=== PATIENT | male | born 1970 | race Caucasian/White ===

== ENCOUNTER → 2017-12-14 | Outpatient (CLI) | payer OTHER ==
--- NOTE | 2017-12-14 13:40 | DIAGNOSTIC IMAGING REPORT ---
RIGHT HAND 3 VIEWS CLINICAL HISTORY: Fall. Right hand injury. FINDINGS: 3 views of the right hand are obtained. No prior studies are available for comparison at the time of dictation. The skeletal structures are well mineralized. There is a horizontally oriented fracture through the base of the fifth metacarpal. This is distracted by at least 4 mm, with mild apex dorsal angulation. Overlying soft tissue edema is noted. No additional fracture is seen. The joint spaces of the hand are preserved. IMPRESSION: There is a distracted fracture through the base of the fifth metacarpal as above. Electronically signed by: Alexis Ponce M.D. 12/14/2017 1:39 PM Dictated Date/Time: 12/14/2017 1:37 PM
== END | disposition home or self-care (01) ==
LOC: C.RAD1850 13:27
PROVIDERS: ATTEND Emergency Medicine
DX: S62.316A Displaced fracture of base of fifth metacarpal bone, right hand, initial encounter for closed fracture (principal); W19.XXXA Unspecified fall, initial encounter

== ENCOUNTER → 2017-12-19 | Outpatient (CLI) | payer OTHER | END | disposition home or self-care (01) | LOC: C.RDSM 09:41 | PROVIDERS: ATTEND Family Medicine Sports Medicine | DX: S62.91XA Unspecified fracture of right hand, initial encounter for closed fracture (principal); X58.XXXA Exposure to other specified factors, initial encounter; Z88.0 Allergy status to penicillin ==

== ENCOUNTER → 2017-12-20 | Outpatient (CLI) | payer OTHER | END | disposition home or self-care (01) | LOC: C.RDSM 10:40 | PROVIDERS: ATTEND Family Medicine Sports Medicine | DX: M25.522 Pain in left elbow (principal); M25.532 Pain in left wrist ==

== ENCOUNTER → 2018-01-02 | Outpatient (CLI) | payer OTHER | END | disposition home or self-care (01) | LOC: C.RDSM 07:21 | PROVIDERS: ATTEND Family Medicine Sports Medicine | DX: S52.122A Displaced fracture of head of left radius, initial encounter for closed fracture (principal); S62.91XA Unspecified fracture of right hand, initial encounter for closed fracture; X58.XXXA Exposure to other specified factors, initial encounter ==

== ENCOUNTER 2020-10-15 16:42 | Inpatient (IN) ==
[2020-10-15] MEDS ORDERED: SODIUM CHLORIDE 0.9% 1000ML 1,000 ML IV ONE ×2 (18:30→19:20)
--- NOTE | 2020-10-15 18:31 | Emergency Department Note ---
Impression & Plan Osteomyelitis, Diabetic foot ulcer, Acute hyperglycemia ED Provider Note NAME: ASHWINI MONTERROSO AGE: 50 SEX: M : 1970 ARRIVES VIA: Walk-In INFORMANT: Patient, ED PROVIDER(S): Deacon Rankin DO CHIEF COMPLAINT: Ulcer HPI: The patient is a 50-year-old male who presented to the emergency department for an evaluation of right foot ulceration. The patient started having a hemorrhagic blister on his right great toe approximately 2 months ago. He states he has been managing it with local wound care but started to notice it wa s starting to drain and the blister ruptured. He went to see his family doctor today and was sent to the emergency department because of a large ulcer on the underside of the right toe. Dressing was in place. The patient denies having any fever or chills. He denies having any nausea or vomiting. He states his blood sugars have been under pretty good control recently. He has never had an ulcer before. He denies having any injury but he states he did have an x-ray with his family doctor that showed there was a questionable fracture in that area. ROS: See above HPI for pertinent positives & negatives. A total of 10 systems reviewed and were otherwise negative. PAST MEDICAL HISTORY: See Below PAST SURGICAL HISTORY: See Below FAMILY HISTORY: See Below SOCIAL HISTORY: See Below HOME MEDICATIONS: See Below ALLERGIES: See Below VITALS: See Below PHYSICAL EXAMINATION: GENERAL: Patient is awake alert in no acute distress patient is resting comfortably and showing no signs of anxiety EYES: The conjunctivae are clear. The pupils are round and reactive. EARS, NOSE, MOUTH AND THROAT: The nose is without any evidence of any deformity. Mucous membranes are moist. Tongue is midline. NECK: The neck is nontender and supple. RESPIRATORY: Normal respiratory effort is noted there is no evidence of wheezing rhonchi or rales CARDIOVASCULAR: Regular rate and rhythm noted there no murmurs rubs or gallops normal S1 normal S2. GASTROINTESTINAL: The abdomen is soft. Abdomen is nontender. MUSCULOSKELETAL/EXTREMITIES: There is no evidence of gross deformity full range of motion is noted in the hips and shoulders. SKIN: There is a large ulceration on the underside of the right great toe does appear to communicate with the musculoskeletal structures including the flexor tendons. There is also ulceration on the medial aspect of the right great toe. NEUROLOGIC: Patient is awake alert and oriented x3. MEDICAL DECISION MAKING: The patient is a 50-year-old male who presented to the emergency department for an evaluation of right foot pain. The patient was noted to have a significant ulcer by his primary care physician. He was sent to the emergency department for further evaluation of this ulcer. The patient was reevaluated multiple times. He was treated with IV antibiotics in the emergency department. Cu ltures were obtained. I discussed the patient's laboratory and radiographic studies with him. [facility] to evaluate the patient in the emergency department for further management and disposition. Triage Nursing notes reviewed. Prior medical records reviewed Vital Signs: reviewed and remarkable for initial hypotension then tachycardia and elevated blood pressure. Differential diagnosis: Cellulitis, abscess, MRSA infection, DVT, necrotizing fasciitis, dermatitis, drug eruption, allergic reaction, as well as other pathologies. ER treatment provided: See below Diagnostics interpreted by me: ECG: none Cardiac Monitoring: An order was placed for continuous cardiac monitoring. The monitor shows a rate of 105 bpm with sinus tachycardia rhythm. Laboratory studies: As stated above and show below. Imaging studies: See below Consultation(s): I discussed this case with Dr. Scott who [facility] He is agreed to evaluate the patient in the emergency department for further management and disposition. Past Med/Surg History Medical History High cholesterol Type 2 diabetes mellitus Social History Smoking Status: Never smoker Feels Safe at Home: Yes Allergies Allergies Allergy/AdvReac Type Severity Reaction Status Date / Time Penicillins Allergy Intermediate Hives Verified 10/15/20 20:04 Home Meds Home Medications Medication Instructions Recorded Confirmed atorvastatin 20 mg PO DAILY 10/15/20 10/15/20 glimepiride 2 mg PO DAILY 10/15/20 10/15/20 metformin 500 mg PO BID 10/15/20 10/15/20 Results & Data (ED) Vital Signs Vital Signs - 24 hr 10/15/20 16:51 10/15/20 19:05 10/15/20 19:25 Temperature 36.9 C Temperature Source Oral Pulse Rate 102 H 103 H 100 H Pulse Rate from SpO2 Sensor 103 H 100 H Pulse Rhythm Regular Pulse Strength Normal Respiratory Rate 20 19 12 Respiratory Effort / Characteristics Non-Labored Spontaneous Respiratory Depth Normal Respiratory Pattern Regular Blood Pressure 97/66 L 160/94 H Blood Pressure Mean 76 116 Blood Pressure Position Sitting Pulse Oximetry 99 97 96 Oxygen Delivery Method Room Air Sepsis Recent Fever Within 48 Hours No Sepsis New/Unexplained Change in Mental Status No Sepsis Action Taken by Nursing No Action Required 10/15/20 19:30 10/15/20 20:00 10/15/20 20:30 Temperature Temperature Source Pulse Rate 103 H 102 H 99 H Pulse Rate from SpO2 Sensor 101 H 103 H 99 H Pulse Rhythm Pulse Strength Respiratory Rate 21 18 22 Respiratory Effort / Characteristics Respiratory Depth Respiratory Pattern Blood Pressure 149/85 H 135/83 153/87 H Blood Pressure Mean 106 100 109 Blood Pressure Position Pulse Oximetry 95 95 96 Oxygen Delivery Method Sepsis Recent Fever Within 48 Hours Sepsis New/Unexplained Change in Mental Status Sepsis Action Taken by [facility] Medications Current Medication List: was personally reviewed by me Laboratory Data Attestation: I reviewed the patient's lab results. Result diagrams: 10/15/20 18:44 10/15/20 18:44 Lab Results 10/15/20 10/15/20 10/15/20 Range/Units 18:44 18:44 18:44 WBC 14.52 H (4.8-10.8) K/uL RBC 4.84 (4.7-6.1) M/uL Hgb 14.8 (14.0-18.0) g/dL Hct 42.1 (42-52) % MCV 87.0 (80-100) fL MCH 30.6 (25-34) pg MCHC 35.2 (32-36) g/dL RDW Std Deviation 39.4 (36.4-46.3) fL RDW Coeff of Gracie 12.3 (11.5-14.5) % Plt Count 255 (130-400) K/uL MPV 10.5 H (7.4-10.4) fL Immature Gran % (Auto) 1.5 % Neut % (Auto) 79.8 % Lymph % (Auto) 9.1 % [place] % (Auto) 8.5 % Eos % (Auto) 0.8 % Baso % (Auto) 0.3 % Neut # (Auto) 11.60 H (1.4-6.5) K/uL Lymph # (Auto) 1.32 (1.2-3.4) K/uL [place] # (Auto) 1.23 H (0.11-0.59) K/uL Eos # (Auto) 0.11 (0-0.5) K/uL Baso # (Auto) 0.04 (0-0.2) K/uL Immature Gran # (Auto) 0.22 H (0.00-0.02) K/uL ESR 99 H (0-20) mm/hr Sodium 127 L (136-145) mmol/L Potassium 4.0 (3.5-5.1) mmol/L Chloride 93 L (98-107) mmol/L Carbon Dioxide 20 L (21-32) mmol/L Anion Gap 14.0 H (3-11) BUN 22 H (7-18) mg/dl Creatinine 1.42 H (0.6-1.4) mg/dl Est Cr Clr Drug Dosing 66.5 ml/min Est GFR ( Amer) 65.4 ml/min Est GFR (Non-Af Amer) 56.4 ml/min BUN/Creatinine Ratio 15.8 (10-20) Glucose 341 H* (70-99) mg/dl Calcium 9.1 (8.5-10.1) mg/dl Total Bilirubin 1.8 H (0.2-1) mg/dl AST 12 L (15-37) U/L ALT 29 (12-78) U/L Alkaline Phosphatase 204 H (45-117) U/L C-Reactive Protein 15.40 H (0-0.29) mg/dl Total Protein 8.1 (6.4-8.2) gm/dl Albumin 2.7 L (3.4-5.0) gm/dl Globulin 5.4 H (2.5-4.0) gm/dl Albumin/Globulin Ratio 0.5 L (0.9-2) Beta-Hydroxybutyric Acd 22.42 H (0.2-2.81) mg/dl Procalcitonin (0-0.5) ng/ml COVID-19 Eval Order SARS-CoV-2 (PCR) (Negative) 10/15/20 10/15/20 10/15/20 Range/Units 18:44 19:29 19:29 WBC (4.8-10.8) K/uL RBC (4.7-6.1) M/uL Hgb (14.0-18.0) g/dL Hct (42-52) % MCV (80-100) fL MCH (25-34) pg MCHC (32-36) g/dL RDW Std Deviation (36.4-46.3) fL RDW Coeff of Gracie (11.5-14.5) % Plt Count (130-400) K/uL MPV (7.4-10.4) fL Immature Gran % (Auto) % Neut % (Auto) % Lymph % (Auto) % [place] % (Auto) % Eos % (Auto) % Baso % (Auto) % Neut # (Auto) (1.4-6.5) K/uL Lymph # (Auto) (1.2-3.4) K/uL [place] # (Auto) (0.11-0.59) K/uL Eos # (Auto) (0-0.5) K/uL Baso # (Auto) (0-0.2) K/uL Immature Gran # (Auto) (0.00-0.02) K/uL ESR (0-20) mm/hr Sodium (136-145) mmol/L Potassium (3.5-5.1) mmol/L Chloride (98-107) mmol/L Carbon Dioxide (21-32) mmol/L Anion Gap (3-11) BUN (7-18) mg/dl Creatinine (0.6-1.4) mg/dl Est Cr Clr Drug Dosing ml/min Est GFR ( Amer) ml/min Est GFR (Non-Af Amer) ml/min BUN/Creatinine Ratio (10-20) Glucose (70-99) mg/dl Calcium (8.5-10.1) mg/dl Total Bilirubin (0.2-1) mg/dl AST (15-37) U/L ALT (12-78) U/L Alkaline Phosphatase (45-117) U/L C-Reactive Protein (0-0.29) mg/dl Total Protein (6.4-8.2) gm/dl Albumin (3.4-5.0) gm/dl Globulin (2.5-4.0) gm/dl Albumin/Globulin Ratio (0.9-2) Beta-Hydroxybutyric Acd (0.2-2.81) mg/dl Procalcitonin 0.58 H (0-0.5) ng/ml COVID-19 Eval Order Covid19 [address] [facility] SARS-CoV-2 (PCR) NEGATIVE (Negative) Administered Medications Discontinued Medications Sodium Chloride (Nss 1000ml) 1,000 mls @ 999 mls/hr IV .Q1H1M ONE Stop: 10/15/20 19:30 Last Infusion: 10/15/20 20:27 Dose: 0 mls/hr Documented by: [id number] Admin: 10/15/20 19:04 Dose: 999 mls/hr Documented by: [id number] Vancomycin HCl 2,000 mg/ (Sodium Chloride) 540 mls @ 200 mls/hr IV NOW ONE Stop: 10/15/20 21:16 Last Admin: 10/15/20 19:06 Dose: 200 mls/hr Documented by: [id number] Cefepime HCl (Maxipime) 2,000 mg in 20 mls @ 5 mls/min IV NOW STA; Protocol Stop: 10/15/20 18:38 Last Admin: 10/15/20 19:02 Dose: 5 mls/min Documented by: [id number] Sodium Chloride (Nss 1000ml) 1,000 mls @ 999 mls/hr IV .Q1H1M ONE Stop: 10/15/20 20:20 Last Admin: 10/15/20 20:26 Dose: 999 mls/hr Documented by: [id number] Insulin Human Regular (Novolin-R Insulin Per Unit Charge) 6 units IV NOW STA Stop: 10/15/20 19:21 Last Admin: 10/15/20 19:26 Dose: 6 units Documented by: [id number] Cosigned by: [id number] Imaging Data Radiologist's Impression: Foot X-Ray 10/15/20 18:30 XR foot RT min 3V routine HISTORY: 50 years-old Male great toe ulcer soft tissue ulcer of the right great toe COMPARISON: None TECHNIQUE: 3 views of the right foot FINDINGS: Moderate soft tissue swelling of the foot. 1.8 cm soft tissue ulcer involving the plantar aspect of the great toe. Osseous erosions of the first distal phalanx are noted with associated fragmentation and pathologic fracturing. Equivocal osseous erosions involve the lateral aspect of the first proximal phalangeal head. Moderate multifocal osteoarthritis with arterial calcifications. IMPRESSION: Soft tissue ulcer of the great toe with osteomyelitis and pathologic fracturing of the first distal phalanx. Subtle osseous erosion involving the lateral first proximal phalangeal head is suggestive of an additional site of osteomyelitis. ACT 112: Negative or not required by law. The above report was generated using voice recognition software. It may contain grammatical, syntax or spelling errors. Electronically signed by: Ino Ro M.D. 10/15/2020 7:05 PM Discharge Plan Visit Data Chief Complaint: Toe Injury/Pain Stated Complaint: R BIG TOE FRACTURE- DOC REF ED Provider: Deacon Rankin Discharge Problem: Osteomyelitis, Diabetic foot ulcer, Acute hyperglycemia Patient Disposition: Being Evaluated by Hospitalist Condition: Good Discharge Problem: Osteomyelitis Qualifiers: Osteomyelitis type: other acute Osteomyelitis location: foot Laterality: unspecified laterality Qualified Code(s): M86.179 - Other acute osteomyelitis, unspecified ankle and foot Diabetic foot ulcer Qualifiers: Diabetic foot ulcer location: toe Diabetes mellitus type: other specified (including ANEESH) Laterality: unspecified laterality Non-pressure ulcer stage: unspecified non-pressure ulcer stage Qualified Code(s): E13.621 - Other specified diabetes mellitus with foot ulcer
[2020-10-15] MEDS ORDERED: VANCOMYCIN HCL 2,000 MG in SODIUM CHLORIDE 0.9% 500 ML IV ONE (18:35)
[2020-10-15] MEDS ORDERED: VANCOMYCIN CONSULT ACTIVE PRN (18:35)
[2020-10-15] MEDS ORDERED: CEFEPIME 2,000 MG/20 ML VIAL IV STA (18:35)
[2020-10-15 18:58] LABS: Basophils # (auto) 0.04 K/uL (0-0.2); Basophils % (auto) 0.3 %; Eosinophils # (auto) 0.11 K/uL (0-0.5); Eosinophils % (auto) 0.8 %; Hematocrit (blood only) 42.1 % (42-52); Hemoglobin 14.8 g/dL (14.0-18.0); Immature Granulocytes # (auto) 0.22 K/uL (0.00-0.02); Immature Granulocytes % (auto) 1.5 %; Lymphocytes # (auto) 1.32 K/uL (1.2-3.4); Lymphocytes % (auto) 9.1 %; Mean Corpuscular Hemoglobin 30.6 pg (25-34); Mean Corpuscular Hgb Conc 35.2 g/dL (32-36); Mean Platelet Volume 10.5 fL (7.4-10.4); Monocytes # (auto) 1.23 K/uL (0.11-0.59); Monocytes % (auto) 8.5 %; Neutrophils % (auto) 79.8 %; Platelet Count 255 K/uL (130-400); RDW Coefficient of Variation 12.3 % (11.5-14.5); RDW Standard Deviation 39.4 fL (36.4-46.3); Red Blood Count 4.84 M/uL (4.7-6.1); White Blood Count 14.52 K/uL (4.8-10.8)
--- NOTE | 2020-10-15 19:06 | XRay Report ---
XR foot RT min 3V routine HISTORY: 50 years-old Male great toe ulcer soft tissue ulcer of the right great toe COMPARISON: None TECHNIQUE: 3 views of the right foot FINDINGS: Moderate soft tissue swelling of the foot. 1.8 cm soft tissue ulcer involving the plantar aspect of t he great toe. Osseous erosions of the first distal phalanx are noted with associated fragmentation an d pathologic fracturing. Equivocal osseous erosions involve the lateral aspect of the first proximal phalangeal head. Moderate multifocal osteoarthritis with arterial calcifications. IMPRESSION: Soft tissue ulcer of the great toe with osteomyelitis and pathologic fracturing of the fi rst distal phalanx. Subtle osseous erosion involving the lateral first proximal phalangeal head is dangelo ggestive of an additional site of osteomyelitis. ACT 112: Negative or not required by law. The above report was generated using voice recognition software. It may contain grammatical, syntax o r spelling errors. Electronically signed by: Ino Ro M.D. 10/15/2020 7:05 PM
[2020-10-15 19:16] LABS: Albumin Globulin Ratio 0.5 (0.9-2); Albumin Level 2.7 gm/dl (3.4-5.0); BUN Creatinine Ratio 15.8 (10-20); Bilirubin,Total 1.8 mg/dl (0.2-1); C Reactive Protein 15.4 mg/dl (0-0.29); Calcium 9.1 mg/dl (8.5-10.1); Creatinine Clr Calc Pharmacy 66.5 ml/min; Est GFR (African American) 65.4 ml/min; Est GFR (Non-African American) 56.4 ml/min; Globulin 5.4 gm/dl (2.5-4.0); Total Protein 8.1 gm/dl (6.4-8.2)
[2020-10-15] MEDS ORDERED: NovoLIN-R INSULIN PER UNIT CHARGE IV STA (19:20)
[2020-10-15 19:39] LABS: Beta-Hydroxybutyrate 22.42 mg/dl (0.2-2.81)
[2020-10-15] MEDS ORDERED: POLYETHYLENE (MIRALAX) 17 GM PACK PO PRN (21:57)
[2020-10-15] MEDS ORDERED: ACETAMINOPHEN 325 MG TAB PO PRN (21:57)
[2020-10-15] MEDS ORDERED: MEROPENEM CONSULT ACITVE PRN (21:57)
[2020-10-15] MEDS ORDERED: INSULIN HUMAN REGULAR PER UNIT 6 UNITS in SYRINGE 5.94 ML IV STA (22:25)
[2020-10-15] MEDS ORDERED: CARBOHYDRATES FOR HYPOGLYCEMIA PO PRN (22:30)
[2020-10-15] MEDS ORDERED: INSULIN GLARGINE SOLOSTAR 100 UNITS/ML 3 ML PEN SC SCH (22:30)
[2020-10-15] MEDS ORDERED: GLUCOSE 40% GEL 15 GM TUBE PO PRN (22:30)
[2020-10-15] MEDS ORDERED: INSULIN ASPART 100 UNITS/ML 3 ML PEN SC SCH (22:30)
[2020-10-15] MEDS ORDERED: DEXTROSE 50% 50 ML SYRINGE IV PRN (22:30)
[2020-10-15] MEDS ORDERED: MEROPENEM 500 MG in SYRINGE 0 ML IV SCH (22:30)
[2020-10-15] MEDS ORDERED: GLUCAGON FOR INJ 1 MG VIAL IM PRN (22:30)
[2020-10-15] MEDS ORDERED: GLUCOSE 10 TABS/TUBE PO PRN (22:30)
[2020-10-15] MEDS: SODIUM CHLORIDE 0.9% 1000ML 1,000 ML IV SCH (22:36)
--- NOTE | 2020-10-15 22:42 | Pharmacy Report ---
Pharmacy Abx Initial Consult - Date of Service October 15, 2020 - Pharmacy Dosing Scope Date of Consult: 10/15/20 Consultation requested by: Dr. Scott Pharmacy is consulted to initiate Vancomycin and Meropenem IV dosing therapy, order appropriate labs and adjust drug dose/frequency. - Subjective The patient is a 50 year old M admitted on 10/15/20 20:31. - Objective Height: 5 ft 7 in Weight: 93.9 kg Vital Signs (Past 12hrs): Vital Signs Temp Pulse Pulse Resp BP BP Pulse Ox 10/15/20 21:30 37.5 C 101 H 16 152/82 H 99 10/15/20 21:01 105 H 20 149/93 H 98 10/15/20 21:00 101 H 24 98 10/15/20 20:30 99 H 22 153/87 H 96 10/15/20 20:00 102 H 18 135/83 95 10/15/20 19:30 103 H 21 149/85 H 95 10/15/20 19:25 100 H 12 96 10/15/20 19:05 103 H 19 160/94 H 97 10/15/20 16:51 36.9 C 102 H 20 97/66 L 99 Lab Results (24hrs): Laboratory Tests (24 Hours) 10/15/20 10/15/20 10/15/20 18:44 18:44 18:44 WBC Neut # (Auto) ESR 99 H Creatinine 1.42 H Est Cr Clr Drug Dosing 66.5 C-Reactive Protein 15.40 H Procalcitonin 0.58 H 10/15/20 18:44 WBC 14.52 H Neut # (Auto) 11.60 H ESR Creatinine Est Cr Clr Drug Dosing C-Reactive Protein Procalcitonin Micro Results: 10/15/20 18:44 Gram Stain - Pending Foot,Right Wound Culture - Pending - Risk Factors for Resistance * None - Assessment & Plan Assessment 50 year old M admitted secondary to right foot infection * PMHx significant for T2DM * Afebrile. Leukocytosis of 14,500. SCr at 1.42 (unsure of baseline). ESR/CRP both elevated. Procalcitonin was 0.58. * R foot cultures are pending. R foot XR shows evidence of osteomyelitis. * Received Vancomycin and Cefepime in ED but Cefepime switched to Meropenem upon transfer to medical floor. Plan Vancomycin and Cefepime for EMPIRIC (48 hour stop) treatment of osteomyelitis Vancomycin IV * Loading dose: 2000 mg (21 mg/kg) * Maintenance dose: 1250 mg IV (13 mg/kg) every 12 hours * Goal trough level: 15 to 20 mcg/mL * No trough level will be ordered unless Vancomycin therapy is to extend beyond 48 hours Meropenem * 500 mg IV every 6 hours Pharmacy will continue to follow and will adjust dose/frequency as necessary. Thank you.
[2020-10-15] MEDS: MEROPENEM 500 MG in SYRINGE 0 ML IV SCH (23:05)
--- NOTE | 2020-10-15 23:32 | History and Physical Report ---
DATE OF ADMISSION: 10/15/2020 CHIEF COMPLAINT: Right great toe infection. HISTORY OF PRESENT ILLNESS: This is a 50-year-old male with past medical history significant for diabetes, hyperlipidemia, obesity, has been diabetic for 4 years. Comes because of right great toe infection. The patient says in August he noticed an hemorrhagic blister in his right great toe, it burst by itself. He did not care much about it, but later in the last 24-48 hours, it has got swollen and some discomfort and went to PCP and advised to come here and x-ray is showing osteomyelitis. Great toe is swollen, erythematous, and ulcer is seen in the dorsal aspect. The patient denies any pain except pressure. He says he is able to ambulate okay on the leg. Yesterday he had some fever, but today he has no fever. Denies any other complaints. Currently resting comfortably and hemodynamically stable. Denies any headache, no blurred vision, no earache, no runny nose, no sore throat, no cough. Appetite is okay. No chest pain, no shortness of breath. No nausea, no abdominal pain. Normal bowel and bladder movements. ALLERGIES: PENICILLINS. PAST MEDICAL HISTORY: As mentioned above. PAST SURGICAL HISTORY: Colonoscopy, dental surgery. MEDICATIONS: The patient is on atorvastatin 20 mg p.o. daily, glimepiride 2 mg p.o. daily, metformin 500 mg p.o. b.i.d. FAMILY HISTORY: Significant for father has high triglycerides. SOCIAL HISTORY: . No smoking. Alcohol rare. No drug use. REVIEW OF SYSTEMS: As per HPI. Rest of the review of systems negative. PHYSICAL EXAMINATION: GENERAL: The patient is obese, not in acute distress. VITAL SIGNS: Temperature 36.9, pulse 102, respiratory rate 20, blood pressure 197/66, oxygen 99% on room air. HEENT: Pupils equal, round, reactive to light. Oral mucosa moist. NECK: No JVD. No neck masses. CARDIOVASCULAR: S1, S2 heard, regular rate and rhythm, no murmur, no gallop. RESPIRATORY SYSTEM: Normal AP diameter. No accessory muscle use. No wheezing, no crackles. ABDOMEN: Soft, bowel sounds present, nontender. No distention. CENTRAL NERVOUS SYSTEM: Cranial nerves II-XII grossly intact, nonfocal. EXTREMITIES: Right great toe is swollen, erythematous and ulcer seen on the dorsal aspect. LABORATORY DATA: WBC 14.5, hemoglobin 14.8, hematocrit 42.1, platelets 255. ESR 99. Sodium 127, potassium 4, chloride 93, bicarbonate 20, anion gap 14, BUN 22, creatinine 1.4, serum glucose 341, calcium 9.1, total bilirubin 1.8, AST 12, ALT 29, alkaline phosphatase 204. C-reactive protein 15.4. Procalcitonin 0.5. SARS-CoV-2 PCR negative. IMAGING DATA: Foot x-ray, soft tissue ulcer of the great toe with osteomyelitis and pathological fracture of the first distal phalanx, subtle osseous erosion on the lateral first proximal phalangeal head, is suggestive of additional site of osteomyelitis. ASSESSMENT AND PLAN: This is a 50-year-old male with a history of diabetes, who presents with right great toe osteomyelitis. 1. Right great toe osteomyelitis and diabetic foot ulcer: Empirically started on vancomycin and meropenem as the patient is allergic to penicillins. Wound care and ortho consult. Gentle fluids and monitor in the medical floor. 2. Diabetes: Hold his glimepiride and metformin. Currently sugars are running high. Received a dose of 6 units of insulin in the ER. We will follow his blood sugars. Placed him on Lantus 5 units b.i.d., insulin sliding scale. Follow the blood sugars. follow hba1c levels. n.p.o. after midnight for any procedures in the a.m. 3. hyperlipidemia: Continue statin. 4. Obesity: Needs counseling. 5. Elevated bilirubin: Follow repeat labs in the a.m. 6. Acute kidney injury: Presently creatinine of 1.4. Baseline creatinine 0.9 in 2017. Getting fluids. Avoid nephrotoxic agents. We will follow the repeat labs in the a.m. 7. Deep venous thrombosis prophylaxis: Sequential compression devices for now for any procedures. Expect to discharge home and follow with family doctor. Level 1 full code. Social service to help with discharge planning. MTDD
[2020-10-16] MEDS ORDERED: Nursing to Pharmacy Communication SCH ×2 (00:30→10:45)
[2020-10-16] MEDS: MEROPENEM 500 MG in SYRINGE 0 ML IV SCH ×3 (05:56→17:54)
[2020-10-16] MEDS ORDERED: INSULIN ASPART 100 UNITS/ML 3 ML PEN SC SCH (06:00)
[2020-10-16 06:38] LABS: Basophils # (auto) 0.03 K/uL (0-0.2); Basophils % (auto) 0.2 %; Eosinophils # (auto) 0.23 K/uL (0-0.5); Eosinophils % (auto) 1.8 %; Hematocrit (blood only) 36.9 % (42-52); Hemoglobin 12.7 g/dL (14.0-18.0); Immature Granulocytes # (auto) 0.18 K/uL (0.00-0.02); Immature Granulocytes % (auto) 1.4 %; Lymphocytes # (auto) 1.83 K/uL (1.2-3.4); Lymphocytes % (auto) 14.5 %; Mean Corpuscular Hemoglobin 30.5 pg (25-34); Mean Corpuscular Hgb Conc 34.4 g/dL (32-36); Mean Corpuscular Volume 88.5 fL (80-100); Mean Platelet Volume 10.3 fL (7.4-10.4); Monocytes # (auto) 1.03 K/uL (0.11-0.59); Monocytes % (auto) 8.1 %; Neutrophils # (auto) 9.36 K/uL (1.4-6.5); Platelet Count 278 K/uL (130-400); RDW Coefficient of Variation 12.4 % (11.5-14.5); RDW Standard Deviation 39.7 fL (36.4-46.3); Red Blood Count 4.17 M/uL (4.7-6.1); White Blood Count 12.66 K/uL (4.8-10.8)
[2020-10-16] MEDS ORDERED: VANCOMYCIN HCL 1,250 MG in SODIUM CHLORIDE 0.9% 250 ML IV SCH (07:00)
[2020-10-16 07:17] LABS: Estimated Average Glucose 292 mg/dl; Hemoglobin A1C 11.8 % (4.5-5.6)
[2020-10-16 07:26] LABS: BUN Creatinine Ratio 18.7 (10-20); Calcium 7.7 mg/dl (8.5-10.1); Creatinine Clr Calc Pharmacy 109.7 ml/min; Est GFR (African American) 115.6 ml/min; Est GFR (Non-African American) 99.7 ml/min; Magnesium 1.8 mg/dl (1.8-2.4); Potassium 3.8 mmol/L (3.5-5.1)
--- NOTE | 2020-10-16 07:43 | Hospitalist Progress Note ---
Date of Service October 16, 2020 Assessment & Plan (1) Osteomyelitis: (2) Diabetic foot ulcer: (3) Diabetes mellitus: This is a 50-year-old male with a history of diabetes, who presents with right great toe osteomyelitis. 1. Right great toe osteomyelitis and diabetic foot ulcer: Empirically started on vancomycin and meropenem as the patient is allergic to penicillins. Wound care and ortho consult. Gentle fluids and monitor in the medical floor. Orthopedics evaluated patient, MRI of right foot ordered. 2. Diabetes mellitus type II, uncontrolled: Continue globin A1c 11.8% Hold his glimepiride and metformin. Blood sugars elevated on admission -Received a dose of 6 units of insulin in the ER. We will follow his blood sugars. Placed him on Lantus 5 units b.i.d., insulin sliding scale. Glycemic pharmacy also consulted. 3. hyperlipidemia: Continue statin. 4. Obesity: Needs counseling. 5. Elevated bilirubin: Follow repeat labs in the a.m. 6. Acute kidney injury: Presently creatinine of 1.4. Baseline creatinine 0.9 in 2017. Getting fluids. Avoid nephrotoxic agents. We will follow the repeat labs in the a.m. DVT prophylaxis: Sequential compression devices for now for any procedures. Expect to discharge home and follow with family doctor. Social service to help with discharge planning. Admission and Anticipated Discharge Date Admission Date: October 15, 2020 Subjective Patient seen in follow-up of osteomyelitis, hyperglycemia, uncontrolled diabetes mellitus Currently is lying in bed, no acute distress denies any pain Also denies any fever chills chest pain shortness of breath Seen by orthopedics earlier, MRI of foot ordered Review of Systems Review of Systems: All systems reviewed & are unremarkable except as noted in HPI & below Constitutional: no fever and no chills Respiratory: no cough and no dyspnea Cardiovascular: no chest pain and no palpitations Gastrointestinal: no abdominal pain, no nausea and no vomiting Physical Exam Physical Exam: GENERAL: The patient is obese male, not in acute distress. HEENT: NC/AT, Pupils equal, round, reactive to light. Oral mucosa moist. NECK: No JVD. No neck masses. CARDIOVASCULAR: S1, S2 heard, regular rate and rhythm, no murmur, no gallop. RESPIRATORY : Normal AP diameter. No accessory muscle use. No wheezing, no crackles. ABDOMEN: Soft, bowel sounds present, nontender. No distention. NEURO: Alert and oriented x3, no facial asymmetry, speech fluent,moves extremities EXTREMITIES: Right great toe is swollen, erythematous and ulcer seen on the dorsal aspect. Now in dressings. Results & Data Results & Data ([facility]) Vital Signs (Past 12 Hours) Vital Signs Temp Pulse Pulse Resp BP BP Pulse Ox 10/15/20 21:30 37.5 C 101 H 16 152/82 H 99 10/15/20 21:01 105 H 20 149/93 H 98 10/15/20 21:00 101 H 24 98 10/15/20 20:30 99 H 22 153/87 H 96 10/15/20 20:00 102 H 18 135/83 95 Laboratory Results 10/16/20 10/16/20 10/16/20 Range/Units 06:15 06:15 06:15 WBC 12.66 H (4.8-10.8) K/uL RBC 4.17 L (4.7-6.1) M/uL Hgb 12.7 L (14.0-18.0) g/dL Hct 36.9 L (42-52) % MCV 88.5 (80-100) fL MCH 30.5 (25-34) pg MCHC 34.4 (32-36) g/dL RDW Std Deviation 39.7 (36.4-46.3) fL RDW Coeff of Gracie 12.4 (11.5-14.5) % Plt Count 278 (130-400) K/uL MPV 10.3 (7.4-10.4) fL Immature Gran % (Auto) 1.4 % Neut % (Auto) 74.0 % Lymph % (Auto) 14.5 % Barron % (Auto) 8.1 % Eos % (Auto) 1.8 % Baso % (Auto) 0.2 % Neut # (Auto) 9.36 H (1.4-6.5) K/uL Lymph # (Auto) 1.83 (1.2-3.4) K/uL Barron # (Auto) 1.03 H (0.11-0.59) K/uL Eos # (Auto) 0.23 (0-0.5) K/uL Baso # (Auto) 0.03 (0-0.2) K/uL Immature Gran # (Auto) 0.18 H (0.00-0.02) K/uL ESR (0-20) mm/hr Sodium 133 L (136-145) mmol/L Potassium 3.8 (3.5-5.1) mmol/L Chloride 104 (98-107) mmol/L Carbon Dioxide 21 (21-32) mmol/L Anion Gap 8.0 (3-11) BUN 16 (7-18) mg/dl Creatinine 0.86 D (0.6-1.4) mg/dl Est Cr Clr Drug Dosing 109.7 ml/min Est GFR ( Amer) 115.6 ml/min Est GFR (Non-Af Amer) 99.7 ml/min BUN/Creatinine Ratio 18.7 (10-20) Glucose 233 H (70-99) mg/dl POC Glucose (70-99) mg/dl Estimat Average Glucose 292 mg/dl Hemoglobin A1c 11.8 H (4.5-5.6) % Calcium 7.7 L D (8.5-10.1) mg/dl Magnesium 1.8 (1.8-2.4) mg/dl Total Bilirubin (0.2-1) mg/dl AST (15-37) U/L ALT (12-78) U/L Alkaline Phosphatase (45-117) U/L C-Reactive Protein (0-0.29) mg/dl Total Protein (6.4-8.2) gm/dl Albumin (3.4-5.0) gm/dl Globulin (2.5-4.0) gm/dl Albumin/Globulin Ratio (0.9-2) Beta-Hydroxybutyric Acd (0.2-2.81) mg/dl Procalcitonin (0-0.5) ng/ml COVID-19 Eval Order SARS-CoV-2 (PCR) (Negative) 10/16/20 10/15/20 10/15/20 Range/Units 06:01 21:45 21:41 WBC (4.8-10.8) K/uL RBC (4.7-6.1) M/uL Hgb (14.0-18.0) g/dL Hct (42-52) % MCV (80-100) fL MCH (25-34) pg MCHC (32-36) g/dL RDW Std Deviation (36.4-46.3) fL RDW Coeff of Garcie (11.5-14.5) % Plt Count (130-400) K/uL MPV (7.4-10.4) fL Immature Gran % (Auto) % Neut % (Auto) % Lymph % (Auto) % [place] % (Auto) % Eos % (Auto) % Baso % (Auto) % Neut # (Auto) (1.4-6.5) K/uL Lymph # (Auto) (1.2-3.4) K/uL [place] # (Auto) (0.11-0.59) K/uL Eos # (Auto) (0-0.5) K/uL Baso # (Auto) (0-0.2) K/uL Immature Gran # (Auto) (0.00-0.02) K/uL ESR (0-20) mm/hr Sodium (136-145) mmol/L Potassium (3.5-5.1) mmol/L Chloride (98-107) mmol/L Carbon Dioxide (21-32) mmol/L Anion Gap (3-11) BUN (7-18) mg/dl Creatinine (0.6-1.4) mg/dl Est Cr Clr Drug Dosing ml/min Est GFR ( Amer) ml/min Est GFR (Non-Af Amer) ml/min BUN/Creatinine Ratio (10-20) Glucose (70-99) mg/dl POC Glucose 229 H 313 H* 326 H* (70-99) mg/dl Estimat Average Glucose mg/dl Hemoglobin A1c (4.5-5.6) % Calcium (8.5-10.1) mg/dl Magnesium (1.8-2.4) mg/dl Total Bilirubin (0.2-1) mg/dl AST (15-37) U/L ALT (12-78) U/L Alkaline Phosphatase (45-117) U/L C-Reactive Protein (0-0.29) mg/dl Total Protein (6.4-8.2) gm/dl Albumin (3.4-5.0) gm/dl Globulin (2.5-4.0) gm/dl Albumin/Globulin Ratio (0.9-2) Beta-Hydroxybutyric Acd (0.2-2.81) mg/dl Procalcitonin (0-0.5) ng/ml COVID-19 Eval Order SARS-CoV-2 (PCR) (Negative) 10/15/20 10/15/20 10/15/20 Range/Units 19:29 19:29 18:44 WBC (4.8-10.8) K/uL RBC (4.7-6.1) M/uL Hgb (14.0-18.0) g/dL Hct (42-52) % MCV (80-100) fL MCH (25-34) pg MCHC (32-36) g/dL RDW Std Deviation (36.4-46.3) fL RDW Coeff of Gracie (11.5-14.5) % Plt Count (130-400) K/uL MPV (7.4-10.4) fL Immature Gran % (Auto) % Neut % (Auto) % Lymph % (Auto) % Barron % (Auto) % Eos % (Auto) % Baso % (Auto) % Neut # (Auto) (1.4-6.5) K/uL Lymph # (Auto) (1.2-3.4) K/uL Barron # (Auto) (0.11-0.59) K/uL Eos # (Auto) (0-0.5) K/uL Baso # (Auto) (0-0.2) K/uL Immature Gran # (Auto) (0.00-0.02) K/uL ESR (0-20) mm/hr Sodium (136-145) mmol/L Potassium (3.5-5.1) mmol/L Chloride (98-107) mmol/L Carbon Dioxide (21-32) mmol/L Anion Gap (3-11) BUN (7-18) mg/dl Creatinine (0.6-1.4) mg/dl Est Cr Clr Drug Dosing ml/min Est GFR ( Amer) ml/min Est GFR (Non-Af Amer) ml/min BUN/Creatinine Ratio (10-20) Glucose (70-99) mg/dl POC Glucose (70-99) mg/dl Estimat Average Glucose mg/dl Hemoglobin A1c (4.5-5.6) % Calcium (8.5-10.1) mg/dl Magnesium (1.8-2.4) mg/dl Total Bilirubin (0.2-1) mg/dl AST (15-37) U/L ALT (12-78) U/L Alkaline Phosphatase (45-117) U/L C-Reactive Protein (0-0.29) mg/dl Total Protein (6.4-8.2) gm/dl Albumin (3.4-5.0) gm/dl Globulin (2.5-4.0) gm/dl Albumin/Globulin Ratio (0.9-2) Beta-Hydroxybutyric Acd (0.2-2.81) mg/dl Procalcitonin 0.58 H (0-0.5) ng/ml COVID-19 Eval Order Covid19 at [facility] SARS-CoV-2 (PCR) NEGATIVE (Negative) 10/15/20 10/15/20 10/15/20 Range/Units 18:44 18:44 18:44 WBC 14.52 H (4.8-10.8) K/uL RBC 4.84 (4.7-6.1) M/uL Hgb 14.8 (14.0-18.0) g/dL Hct 42.1 (42-52) % MCV 87.0 (80-100) fL MCH 30.6 (25-34) pg MCHC 35.2 (32-36) g/dL RDW Std Deviation 39.4 (36.4-46.3) fL RDW Coeff of Gracie 12.3 (11.5-14.5) % Plt Count 255 (130-400) K/uL MPV 10.5 H (7.4-10.4) fL Immature Gran % (Auto) 1.5 % Neut % (Auto) 79.8 % Lymph % (Auto) 9.1 % Barron % (Auto) 8.5 % Eos % (Auto) 0.8 % Baso % (Auto) 0.3 % Neut # (Auto) 11.60 H (1.4-6.5) K/uL Lymph # (Auto) 1.32 (1.2-3.4) K/uL Barron # (Auto) 1.23 H (0.11-0.59) K/uL Eos # (Auto) 0.11 (0-0.5) K/uL Baso # (Auto) 0.04 (0-0.2) K/uL Immature Gran # (Auto) 0.22 H (0.00-0.02) K/uL ESR 99 H (0-20) mm/hr Sodium 127 L (136-145) mmol/L Potassium 4.0 (3.5-5.1) mmol/L Chloride 93 L (98-107) mmol/L Carbon Dioxide 20 L (21-32) mmol/L Anion Gap 14.0 H (3-11) BUN 22 H (7-18) mg/dl Creatinine 1.42 H (0.6-1.4) mg/dl Est Cr Clr Drug Dosing 66.5 ml/min Est GFR ( Amer) 65.4 ml/min Est GFR (Non-Af Amer) 56.4 ml/min BUN/Creatinine Ratio 15.8 (10-20) Glucose 341 H* (70-99) mg/dl POC Glucose (70-99) mg/dl Estimat Average Glucose mg/dl Hemoglobin A1c (4.5-5.6) % Calcium 9.1 (8.5-10.1) mg/dl Magnesium (1.8-2.4) mg/dl Total Bilirubin 1.8 H (0.2-1) mg/dl AST 12 L (15-37) U/L ALT 29 (12-78) U/L Alkaline Phosphatase 204 H (45-117) U/L C-Reactive Protein 15.40 H (0-0.29) mg/dl Total Protein 8.1 (6.4-8.2) gm/dl Albumin 2.7 L (3.4-5.0) gm/dl Globulin 5.4 H (2.5-4.0) gm/dl Albumin/Globulin Ratio 0.5 L (0.9-2) Beta-Hydroxybutyric Acd 22.42 H (0.2-2.81) mg/dl Procalcitonin (0-0.5) ng/ml COVID-19 Eval Order SARS-CoV-2 (PCR) (Negative) Medications Administered Current Inpatient Medications Acetaminophen (Acetaminophen 325 Mg Tab) 650 mg PO Q4H PRN PRN Reason: pain/fever Stop: 11/14/20 21:56 Atorvastatin Calcium (Atorvastatin 20 Mg Tab) 20 mg PO DAILY MELE Stop: 11/15/20 08:59 Dextrose (Dextrose 50% 50 Ml Syringe) 25 - 50 ml IV UD PRN; Protocol PRN Reason: Hypoglycemia Protocol Stop: 11/14/20 22:29 Glucagon (Glucagon For Inj 1 Mg Vial) 1 mg IM UD PRN; Protocol PRN Reason: Hypoglycemia Protocol Stop: 11/14/20 22:29 Glucose (Glucose 40% Gel 15 Gm Tube) 15 - 30 gm PO UD PRN; Protocol PRN Reason: Hypoglycemia Protocol Stop: 11/14/20 22:29 Glucose (Glucose 10 Tabs/Tube) 4 - 8 tabs PO UD PRN; Protocol PRN Reason: Hypoglycemia Protocol Stop: 11/14/20 22:29 Meropenem 500 mg/ Syringe 10 mls @ 2 mls/min IV Q6H MELE; Protocol Stop: 10/22/20 22:59 Last Admin: 10/16/20 05:56 Dose: 2 mls/min Documented by: Sodium Chloride (Nss 1000ml) 1,000 mls @ 100 mls/hr IV .Q10H MELE Stop: 11/14/20 22:29 Last Admin: 10/15/20 22:36 Dose: 100 mls/hr Documented by: Vancomycin HCl 1,250 mg/ (Sodium Chloride) 275 mls @ 200 mls/hr IV Q12H MELE Stop: 10/18/20 06:59 Last Admin: 10/16/20 05:57 Dose: 200 mls/hr Documented by: Insulin Aspart (Insulin Aspart 100 Units/Ml 3 Ml Pen) 0 units SC Q6 MELE Stop: 11/14/20 22:29 Last Admin: 10/16/20 06:07 Dose: 3 units Documented by: Insulin Glargine (Insulin Glargine Solostar 100 Units/Ml 3 Ml Pen) 5 units SC BID MELE Stop: 11/14/20 22:29 Last Admin: 10/15/20 23:07 Dose: 5 units Documented by: Miscellaneous (Carbohydrates For Hypoglycemia ) 15 - 30 gm PO UD PRN PRN Reason: Hypoglycemia Treatment Stop: 11/14/20 22:29 Miscellaneous Information (Vancomycin Consult Active) 1 ea N/A UD PRN PRN Reason: Consult Stop: 11/14/20 18:34 Miscellaneous Information (Meropenem Consult Acitve) 1 ea N/A UD PRN PRN Reason: Consult Stop: 11/14/20 21:56 Miscellaneous Information (Pharmacy Glycemic Mgmt Consult) 1 ea N/A NOW STA Stop: 10/16/20 07:41 Polyethylene Glycol (Polyethylene (Miralax) 17 Gm Pack) 17 gm PO DAILY PRN PRN Reason: Constipation Stop: 11/14/20 21:56 (1) Osteomyelitis Laterality: unspecified laterality Osteomyelitis location: foot Osteomyelitis type: other acute Qualified Code(s): M86.179 - Other acute osteomyelitis, unspecified ankle and foot (2) Diabetic foot ulcer Diabetes mellitus type: other specified (including ANEESH) Diabetic foot ulcer location: toe Laterality: unspecified laterality Non-pressure ulcer stage: unspecified non-pressure ulcer stage Qualified Code(s): E13.621 - Other specified diabetes mellitus with foot ulcer; L97.509 - Non-pressure chronic ulcer of other part of unspecified foot with unspecified severity
[2020-10-16] MEDS ORDERED: MAGNESIUM SULFATE / D5W 1 GM/100 ML BAG IV ONE (08:00)
[2020-10-16] MEDS ORDERED: PHARMACY GLYCEMIC MGMT CONSULT PRN (08:06)
[2020-10-16] MEDS ORDERED: INSULIN ASPART 100 UNITS/ML 3 ML PEN SC ONE (08:15)
[2020-10-16] MEDS: SODIUM CHLORIDE 0.9% 1000ML 1,000 ML IV SCH ×2 (08:29→18:11)
[2020-10-16] MEDS: ATORVASTATIN 20 MG TAB PO SCH (08:35)
[2020-10-16] MEDS: INSULIN GLARGINE SOLOSTAR 100 UNITS/ML 3 ML PEN SC SCH ×2 (08:36→21:00)
--- NOTE | 2020-10-16 08:50 | Orthopedic Consultation ---
Date of Consultation October 16, 2020 Assessment & Plan (1) Diabetic foot ulcer: Continue current IV antibiotics. MRI of the right great toe ordered. Patient will require debridement versus amputation depending on MRI results. I will discuss the case with Dr. Rodas and make further plans once MRI has been reviewed. History of Present Illness Reason for Consultation: Infection right great toe Attending Physician: Pablo Dhillon MD History of Present Illness Patient is a 50-year-old male with past medical history significant for diabetes, hyperlipidemia, obesity, has been diabetic for 4 years. He states that he thought that his blood sugars have been relatively good but now in retrospect he feels he needs to closely watch him little bit more. He states that within the last 2 to 3 days he noticed a blood blister on his right great toe. He denies any injury of late and no change in footwear. He had no pain and has a history of neuropathy of his feet. Over the last 48 hours though, he noticed that the right great toe began to increase in size as well as with erythema. The blister broke open and he noted a small ulceration on the right great toe. This progressed fairly quickly to the point he had moderate drainage with increasing erythema of the foot. He noticed that it was spreading around the whole of the great toe and not just staying on the one side. He states he did have fever at 1 point however he did not note any fever on the day coming into the emergency room. No obvious chills or rigors or nausea or vomiting. He called his primary care physician who had an x-ray performed which showed question of osteomyelitis and fracture. With the ongoing infection he had the patient come to the emergency room where he was thusly admitted by the hospitalist service for IV antibiotics and further care. We have been asked to take care of his infection of his right great toe. Currently the patient is comfortable with minimal discomfort. Allergies Allergy/AdvReac Type Severity Reaction Status Date / Time Penicillins Allergy Intermediate Hives Verified 10/15/20 20:04 Home Medications Medication Instructions Recorded Confirmed Type atorvastatin 20 mg PO DAILY 10/15/20 10/15/20 History glimepiride 2 mg PO DAILY 10/15/20 10/15/20 History metformin 500 mg PO BID 10/15/20 10/15/20 History Patient History Medical History High cholesterol Type 2 diabetes mellitus Social History Smoking Status: Never smoker Hx Alcohol Use: No Hx Substance Use: No Preferred Language: Amharic Communication Ability: Effective Fleet Assistant Required: No Beliefs That Will Affect Care: None Current Living Situation: Spouse Other Information That Helps Us Care for You: No Feels Safe at Home: Yes Safety Concerns: Feels Safe At This Time Assistive Devices: Glasses Review of Systems Review of Systems: All systems reviewed & are unremarkable except as noted in HPI & below Physical Exam Physical Exam: On examination, the patient is alert and oriented x3, no acute distress, pleasant and cooperative. Looking had his right foot, the right great toe is swollen and erythematous with a noted ulceration on the plantar surface of the toe with maceration around this ulceration that travels proximally. There is a foul odor noted. He is nontender on palpation and I cannot overtly express much in the way of purulence. He does have neuropathy of the foot but states he can feel some slight touch on the dorsum of foot at this time. He can feel pressure on the great toe. There appears to be some necrotic, blackened tissue over the lateral aspect of the right great toe near the base. No pain on palpation over the metacarpal and or base of the great toe. Again not having any overt pain on palpation of the right great toe. Capillary refill is less than 2 seconds. He does have good dorsalis pedis pulse. The other 4 toes appear to be unaffected but erythema does spread proximally and the dorsum of his foot does have some mild swelling. No erythema noted to the ankle or going up the extremity. Results & Data ([facility]) Vital Signs (Past 12 Hours) Vital Signs Temp Pulse Pulse Resp BP BP Pulse Ox 10/16/20 07:41 37.1 C 85 18 142/86 H 95 10/15/20 21:30 37.5 C 101 H 16 152/82 H 99 10/15/20 21:01 105 H 20 149/93 H 98 10/15/20 21:00 101 H 24 98 Diagnostic Findings Laboratory Results WBC 12.66 K/uL (4.8-10.8) H 10/16/20 06:15 RBC 4.17 M/uL (4.7-6.1) L 06/10/21 06:15 Hgb 12.7 g/dL (14.0-18.0) L 10/16/20 06:15 Hct 36.9 % (42-52) L 10/16/20 06:15 MCV 88.5 fL (80-100) 10/16/20 06:15 MCH 30.5 pg (25-34) 10/16/20 06:15 MCHC 34.4 g/dL (32-36) 10/16/20 06:15 RDW Std Deviation 39.7 fL (36.4-46.3) 10/16/20 06:15 RDW Coeff of Gracie 12.4 % (11.5-14.5) 10/16/20 06:15 Plt Count 278 K/uL (130-400) 10/16/20 06:15 MPV 10.3 fL (7.4-10.4) 10/16/20 06:15 Immature Gran % (Auto) 1.4 % 10/16/20 06:15 Neut % (Auto) 74.0 % 10/16/20 06:15 Lymph % (Auto) 14.5 % 10/16/20 06:15 [place] % (Auto) 8.1 % 10/16/20 06:15 Eos % (Auto) 1.8 % 10/16/20 06:15 Baso % (Auto) 0.2 % 10/16/20 06:15 Neut # (Auto) 9.36 K/uL (1.4-6.5) H 10/16/20 06:15 Lymph # (Auto) 1.83 K/uL (1.2-3.4) 10/16/20 06:15 [place] # (Auto) 1.03 K/uL (0.11-0.59) H 10/16/20 06:15 Eos # (Auto) 0.23 K/uL (0-0.5) 10/16/20 06:15 Baso # (Auto) 0.03 K/uL (0-0.2) 10/16/20 06:15 Immature Gran # (Auto) 0.18 K/uL (0.00-0.02) H 10/16/20 06:15 ESR 99 mm/hr (0-20) H 10/15/20 18:44 Sodium 133 mmol/L (136-145) L 10/16/20 06:15 Potassium 3.8 mmol/L (3.5-5.1) 10/16/20 06:15 Chloride 104 mmol/L (98-107) 10/16/20 06:15 Carbon Dioxide 21 mmol/L (21-32) 10/16/20 06:15 Anion Gap 8.0 (3-11) 10/16/20 06:15 BUN 16 mg/dl (7-18) 10/16/20 06:15 Creatinine 0.86 mg/dl (0.6-1.4) D 10/16/20 06:15 Est Cr Clr Drug Dosing 109.7 ml/min 10/16/20 06:15 Est GFR ( Amer) 115.6 ml/min 10/16/20 06:15 Est GFR (Non-Af Amer) 99.7 ml/min 10/16/20 06:15 BUN/Creatinine Ratio 18.7 (10-20) 10/16/20 06:15 Glucose 233 mg/dl (70-99) H 10/16/20 06:15 POC Glucose 229 mg/dl (70-99) H 10/16/20 06:01 Estimat Average Glucose 292 mg/dl 10/16/20 06:15 Hemoglobin A1c 11.8 % (4.5-5.6) H 10/16/20 06:15 Calcium 7.7 mg/dl (8.5-10.1) L D 10/16/20 06:15 Magnesium 1.8 mg/dl (1.8-2.4) 10/16/20 06:15 Total Bilirubin 1.8 mg/dl (0.2-1) H 10/15/20 18:44 AST 12 U/L (15-37) L 10/15/20 18:44 ALT 29 U/L (12-78) 10/15/20 18:44 Alkaline Phosphatase 204 U/L (45-117) H 10/15/20 18:44 C-Reactive Protein 15.40 mg/dl (0-0.29) H 10/15/20 18:44 Total Protein 8.1 gm/dl (6.4-8.2) 10/15/20 18:44 Albumin 2.7 gm/dl (3.4-5.0) L 10/15/20 18:44 Globulin 5.4 gm/dl (2.5-4.0) H 10/15/20 18:44 Albumin/Globulin Ratio 0.5 (0.9-2) L 10/15/20 18:44 Beta-Hydroxybutyric Acd 22.42 mg/dl (0.2-2.81) H 10/15/20 18:44 Procalcitonin 0.58 ng/ml (0-0.5) H 10/15/20 18:44 COVID-19 Eval Order Covid19 at [facility] 10/15/20 19:29 SARS-CoV-2 (PCR) NEGATIVE (Negative) 10/15/20 19:29 Impressions Foot X-Ray 10/15/20 18:30 XR foot RT min 3V routine HISTORY: 50 years-old Male great toe ulcer soft tissue ulcer of the right great toe COMPARISON: None TECHNIQUE: 3 views of the right foot FINDINGS: Moderate soft tissue swelling of the foot. 1.8 cm soft tissue ulcer involving the plantar aspect of the great toe. Osseous erosions of the first distal phalanx are noted with associated fragmentation and pathologic fracturing. Equivocal osseous erosions involve the lateral aspect of the first proximal phalangeal head. Moderate multifocal osteoarthritis with arterial calcifications. IMPRESSION: Soft tissue ulcer of the great toe with osteomyelitis and pathologic fracturing of the first distal phalanx. Subtle osseous erosion involving the lateral first proximal phalangeal head is suggestive of an additional site of osteomyelitis. ACT 112: Negative or not required by law. The above report was generated using voice recognition software. It may contain grammatical, syntax or spelling errors. Electronically signed by: Ino Ro M.D. 10/15/2020 7:05 PM (1) Diabetic foot ulcer Diabetes mellitus type: other specified (including ANEESH) Diabetic foot ulcer location: toe Laterality: unspecified laterality Non-pressure ulcer stage: unspecified non-pressure ulcer stage Qualified Code(s): E13.621 - Other specified diabetes mellitus with foot ulcer; L97.509 - Non-pressure chronic ulcer of other part of unspecified foot with unspecified severity
--- NOTE | 2020-10-16 09:25 | Pharmacy Report ---
Pharmacy Glycemic Short Note 2 - Date of Service October 16, 2020 - Glycemic Short BSG Results (Last 24 hours): 10/15/20 10/15/20 10/15/20 18:44 21:41 21:45 Glucose 341 H* POC Glucose 326 H* 313 H* 10/16/20 10/16/20 06:01 06:15 Glucose 233 H POC Glucose 229 H OUTPATIENT ANTIDIABETIC REGIMEN: * Metformin 500 mg PO BIDM * Glimepiride 2 mg PO daily * HbA1c: 11.8% (10/16/20) ASSESSMENT: * DES is a 50 year old male admitted last evening for IV antibiotic treatment of diabetic foot ulcer and possible osteomyelitis * BSGs elevated last evening, 326 mg/dL on admission * Received 6 units IV insulin, 12 units of SC bolus, and 5 units of Lantus * Fasting BSG of 229 mg/dL this morning - pharmacy consulted for glycemic management at that time * Initially NPO for possible surgical intervention, ordered diet at lunchtime * BSG of 206 at lunchtime was obtained postprandially - will cover carbs only PLAN FOR INPATIENT GLYCEMIC CONTROL: * Hold outpatient oral diabetes medications * Basal insulin * Lantus 15 units SC x 1 this morning * Lantus scale to provide 0-15 units SC HS (see EHR for details) * Bolus insulin * NovoLog per scale ACHS or Q6hrs while NPO * Goal Range: Low 110 mg/dL - High 140 mg/dL * Correction Factor: 20 mg/dL/unit * Nutritional / Prandial insulin per carb ratio of 1 unit per 7 grams CHO consumed * ,04 checks with same parameters PLAN FOR DISCHARGE: * HbA1c of 11.8% suggests very poor outpatient glycemic control * Goal HbA1c for this patient should be less than 7% * Since A1c is greater than or equal to 10%, should consider triple therapy with metformin + basal insulin + (GLP1-RA OR prandial insulin). * Suggest discontinuing glimepiride if insulin initiated to decrease likelihood of hypoglycemia * Will follow inpatient insulin needs and suggest appropriate dosing closer to time of discharge * Also suggest continuing to titrate metformin dosing upwards as recommended. * Dosage increases should be made in increments of 500 mg weekly, up to 2,000 mg/day PO, given in divided doses. 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
[2020-10-16] MEDS: INSULIN ASPART 100 UNITS/ML 3 ML PEN SC SCH ×3 (12:35→20:59)
[2020-10-16] MEDS ORDERED: VANCOMYCIN HCL 1,500 MG in SODIUM CHLORIDE 0.9% 250 ML IV SCH (18:00)
[2020-10-16] MEDS: VANCOMYCIN HCL 1,500 MG in SODIUM CHLORIDE 0.9% 500 ML IV SCH (18:08)
[2020-10-16] MEDS ORDERED: GADOBUTROL 65ML VIAL IV ONE (19:33)
--- NOTE | 2020-10-16 20:09 | Magnetic Resonance Report ---
MR RIGHT FOREFOOT wo/w con CLINICAL HISTORY: r/o abscess/osteomyelitis Right great toe/metacarp diabetic neuropathy. Nonhealing wound over the great toe. COMPARISON STUDY: X-ray study dated 10/15/2020 FINDINGS: Images were obtained in the axial, sagittal, and coronal planes, before and after the administration of 9.3 cc of intravenous Gadavist. There is a plantar soft tissue ulceration at the level of the great toe. There is T1 and T2 marrow edema involving the distal phalanx and proximal phalanx of the great toe. There are cortical destructive changes involving the distal phalanx of the great toe. There is a path ologic fracture involving the distal phalanx the great toe There is suspected gas within the soft tissues. There is diffuse surrounding soft tissue edema with p ost gadolinium enhancement. There are no well-defined abscesses. There is diffuse edema within the foot musculature, consistent with a myositis. There is an area of d ecreased enhancement involving the flexor hallucis brevis at the level of the mid first metatarsal, p ossibly representing an area of myonecrosis. IMPRESSION: 1. Plantar soft tissue ulceration at the level the great toe 2. MRI evidence of osteomyelitis involving the proximal distal phalanges of the great toe 3. Suspected gas within the soft tissues 4. Diffuse edema within the foot musculature consistent with a myositis. 5. Area of decreased enhancement within the flexor pollicis brevis, possibly secondary to an area of myonecrosis 6. Pathologic fracture involving the distal phalanx the great toe ACT 112: Negative or not required by law. Electronically signed by: Raulito Tomlin M.D. 10/16/2020 8:07 PM
[2020-10-17] MEDS: MEROPENEM 500 MG in SYRINGE 0 ML IV SCH ×3 (00:11→11:19)
[2020-10-17] MEDS: INSULIN ASPART 100 UNITS/ML 3 ML PEN SC SCH ×6 (00:11→20:47)
[2020-10-17] MEDS ORDERED: Nursing to Pharmacy Communication SCH ×2 (03:30→18:45)
[2020-10-17 05:51] LABS: Hematocrit (blood only) 33.6 % (42-52); Hemoglobin 11.5 g/dL (14.0-18.0); Mean Corpuscular Hemoglobin 29.9 pg (25-34); Mean Corpuscular Hgb Conc 34.2 g/dL (32-36); Mean Corpuscular Volume 87.3 fL (80-100); Mean Platelet Volume 10.1 fL (7.4-10.4); Platelet Count 243 K/uL (130-400); RDW Coefficient of Variation 12.3 % (11.5-14.5); RDW Standard Deviation 39.8 fL (36.4-46.3); Red Blood Count 3.85 M/uL (4.7-6.1); White Blood Count 11.59 K/uL (4.8-10.8)
[2020-10-17] MEDS: VANCOMYCIN HCL 1,500 MG in SODIUM CHLORIDE 0.9% 500 ML IV SCH ×2 (05:57→18:01)
[2020-10-17] MEDS: SODIUM CHLORIDE 0.9% 1000ML 1,000 ML IV SCH ×2 (05:57→17:45)
[2020-10-17 06:22] LABS: BUN Creatinine Ratio 16.7 (10-20); Calcium 7.2 mg/dl (8.5-10.1); Creatinine Clr Calc Pharmacy 125.8 ml/min; Est GFR (African American) 122.2 ml/min; Est GFR (Non-African American) 105.5 ml/min; Phosphorus 2.9 mg/dl (2.5-4.9); Potassium 3.5 mmol/L (3.5-5.1)
[2020-10-17] MEDS ORDERED: POTASSIUM CHLORIDE CRTAB 20 MEQ TABCR PO STA (07:17)
--- NOTE | 2020-10-17 07:23 | Hospitalist Progress Note ---
Date of Service October 17, 2020 Assessment & Plan (1) Osteomyelitis: (2) Diabetic foot ulcer: (3) Diabetes mellitus: This is a 50-year-old male with a history of diabetes, who presents with right great toe osteomyelitis. 1. Right great toe osteomyelitis and diabetic foot ulcer: Empirically started on vancomycin and meropenem as the patient is allergic to penicillins. Wound care and ortho consult. Gentle fluids and monitor in the medical floor. Orthopedics evaluated patient, MRI of right foot ordered - IMPRESSION: 1. Plantar soft tissue ulceration at the level the great toe 2. MRI evidence of osteomyelitis involving the proximal distal phalanges of the great toe 3. Suspected gas within the soft tissues 4. Diffuse edema within the foot musculature consistent with a myositis. 5. Area of decreased enhancement within the flexor pollicis brevis, possibly secondary to an area of myonecrosis 6. Pathologic fracture involving the distal phalanx the great toe Plan likely four OR today with orthopedics (10/17). Adjust antibiotics with pharmacy - since the patient did not have any reaction to cefepime that he received in the ED, will switch to Vanco and cefepime. Wound culture positive for group B strep. Ideally will obtain culture in the OR. 2. Diabetes mellitus type II, uncontrolled: Continue globin A1c 11.8% Hold his glimepiride and metformin. Blood sugars elevated on admission -Received a dose of 6 units of insulin in the ER. We will follow his blood sugars. Placed him on Lantus 5 units b.i.d., insulin sliding scale. Glycemic pharmacy also consulted. 3. hyperlipidemia: Continue statin. 4. Obesity: Needs counseling. 5. Elevated bilirubin: Follow repeat labs in the a.m. 6. Acute kidney injury: On admission creatinine of 1.4. Baseline creatinine 0.9 in 2017. Getting fluids. Avoid nephrotoxic agents. Resolved - current Cr 0.8 DVT prophylaxis: Sequential compression devices for now for any procedures. Expect to discharge home and follow with family doctor. Social service to help with discharge planning. Admission and Anticipated Discharge Date Admission Date: October 15, 2020 Subjective Patient seen in follow-up of osteomyelitis, hyperglycemia, uncontrolled diabetes mellitus Currently is lying in bed, no acute distress denies any pain Also denies any fever chills chest pain shortness of breath Seen by orthopedics earlier, MRI of foot ordered, plan for likely OR today Review of Systems Review of Systems: All systems reviewed & are unremarkable except as noted in HPI & below Constitutional: no fever and no chills Respiratory: no cough and no dyspnea Cardiovascular: no chest pain and no palpitations Gastrointestinal: no abdominal pain, no nausea and no vomiting Physical Exam Physical Exam: GENERAL: The patient is obese male, not in acute distress. HEENT: NC/AT, Pupils equal, round, reactive to light. Oral mucosa moist. NECK: No JVD. No neck masses. CARDIOVASCULAR: S1, S2 heard, regular rate and rhythm, no murmur, no gallop. RESPIRATORY : Normal AP diameter. No accessory muscle use. No wheezing, no crackles. ABDOMEN: Soft, bowel sounds present, nontender. No distention. NEURO: Alert and oriented x3, no facial asymmetry, speech fluent,moves extremities EXTREMITIES: Right great toe is swollen, erythematous and ulcer seen on the dorsal aspect. Now in dressings. Results & Data Results & Data ([facility]) Vital Signs (Past 12 Hours) Vital Signs Temp Pulse Resp BP Pulse Ox 10/17/20 00:00 37.2 C 88 16 139/82 94 Laboratory Results 10/17/20 10/17/20 10/17/20 Range/Units 06:03 05:25 05:25 WBC 11.59 H (4.8-10.8) K/uL RBC 3.85 L (4.7-6.1) M/uL Hgb 11.5 L (14.0-18.0) g/dL Hct 33.6 L (42-52) % MCV 87.3 (80-100) fL MCH 29.9 (25-34) pg MCHC 34.2 (32-36) g/dL RDW Std Deviation 39.8 (36.4-46.3) fL RDW Coeff of Gracie 12.3 (11.5-14.5) % Plt Count 243 (130-400) K/uL MPV 10.1 (7.4-10.4) fL Sodium 137 (136-145) mmol/L Potassium 3.5 (3.5-5.1) mmol/L Chloride 106 (98-107) mmol/L Carbon Dioxide 23 (21-32) mmol/L Anion Gap 8.0 (3-11) BUN 13 (7-18) mg/dl Creatinine 0.75 (0.6-1.4) mg/dl Est Cr Clr Drug Dosing 125.8 ml/min Est GFR ( Amer) 122.2 ml/min Est GFR (Non-Af Amer) 105.5 ml/min BUN/Creatinine Ratio 16.7 (10-20) Glucose 156 H (70-99) mg/dl POC Glucose 158 H (70-99) mg/dl Calcium 7.2 L (8.5-10.1) mg/dl Phosphorus 2.9 (2.5-4.9) mg/dl Magnesium 2.0 (1.8-2.4) mg/dl 10/17/20 10/17/20 10/16/20 Range/Units 04:24 00:09 20:45 WBC (4.8-10.8) K/uL RBC (4.7-6.1) M/uL Hgb (14.0-18.0) g/dL Hct (42-52) % MCV (80-100) fL MCH (25-34) pg MCHC (32-36) g/dL RDW Std Deviation (36.4-46.3) fL RDW Coeff of Gracie (11.5-14.5) % Plt Count (130-400) K/uL MPV (7.4-10.4) fL Sodium (136-145) mmol/L Potassium (3.5-5.1) mmol/L Chloride (98-107) mmol/L Carbon Dioxide (21-32) mmol/L Anion Gap (3-11) BUN (7-18) mg/dl Creatinine (0.6-1.4) mg/dl Est Cr Clr Drug Dosing ml/min Est GFR ( Amer) ml/min Est GFR (Non-Af Amer) ml/min BUN/Creatinine Ratio (10-20) Glucose (70-99) mg/dl POC Glucose 172 H 179 H 172 H (70-99) mg/dl Calcium (8.5-10.1) mg/dl Phosphorus (2.5-4.9) mg/dl Magnesium (1.8-2.4) mg/dl 10/16/20 10/16/20 10/16/20 Range/Units 17:46 12:27 06:15 WBC (4.8-10.8) K/uL RBC (4.7-6.1) M/uL Hgb (14.0-18.0) g/dL Hct (42-52) % MCV (80-100) fL MCH (25-34) pg MCHC (32-36) g/dL RDW Std Deviation (36.4-46.3) fL RDW Coeff of Gracie (11.5-14.5) % Plt Count (130-400) K/uL MPV (7.4-10.4) fL Sodium 133 L (136-145) mmol/L Potassium 3.8 (3.5-5.1) mmol/L Chloride 104 (98-107) mmol/L Carbon Dioxide 21 (21-32) mmol/L Anion Gap 8.0 (3-11) BUN 16 (7-18) mg/dl Creatinine 0.86 D (0.6-1.4) mg/dl Est Cr Clr Drug Dosing 109.7 ml/min Est GFR ( Amer) 115.6 ml/min Est GFR (Non-Af Amer) 99.7 ml/min BUN/Creatinine Ratio 18.7 (10-20) Glucose 233 H (70-99) mg/dl POC Glucose 195 H 206 H (70-99) mg/dl Calcium 7.7 L D (8.5-10.1) mg/dl Phosphorus (2.5-4.9) mg/dl Magnesium 1.8 (1.8-2.4) mg/dl Medications Administered Current Inpatient Medications Acetaminophen (Acetaminophen 325 Mg Tab) 650 mg PO Q4H PRN PRN Reason: pain/fever Stop: 11/14/20 21:56 Atorvastatin Calcium (Atorvastatin 20 Mg Tab) 20 mg PO DAILY [facility] Stop: 11/15/20 08:59 Last Admin: 10/16/20 08:35 Dose: 20 mg Documented by: Dextrose (Dextrose 50% 50 Ml Syringe) 25 - 50 ml IV UD PRN; Protocol PRN Reason: Hypoglycemia Protocol Stop: 11/14/20 22:29 Glucagon (Glucagon For Inj 1 Mg Vial) 1 mg IM UD PRN; Protocol PRN Reason: Hypoglycemia Protocol Stop: 11/14/20 22:29 Glucose (Glucose 40% Gel 15 Gm Tube) 15 - 30 gm PO UD PRN; Protocol PRN Reason: Hypoglycemia Protocol Stop: 11/14/20 22:29 Glucose (Glucose 10 Tabs/Tube) 4 - 8 tabs PO UD PRN; Protocol PRN Reason: Hypoglycemia Protocol Stop: 11/14/20 22:29 Meropenem 500 mg/ Syringe 10 mls @ 2 mls/min IV Q6H MELE; Protocol Stop: 10/22/20 22:59 Last Admin: 10/17/20 05:57 Dose: 2 mls/min Documented by: Sodium Chloride (Nss 1000ml) 1,000 mls @ 100 mls/hr IV .Q10H MELE Stop: 11/14/20 22:29 Last Admin: 10/17/20 05:57 Dose: 100 mls/hr Documented by: Vancomycin HCl 1,500 mg/ (Sodium Chloride) 530 mls @ 200 mls/hr IV Q12H MELE; Protocol Stop: 10/18/20 05:59 Last Admin: 10/17/20 05:57 Dose: 200 mls/hr Documented by: Insulin Aspart (Insulin Aspart 100 Units/Ml 3 Ml Pen) 0 units SC Q6 MELE Stop: 11/15/20 11:29 Last Admin: 10/17/20 06:09 Dose: 1 units Documented by: Insulin Glargine (Insulin Glargine Solostar 100 Units/Ml 3 Ml Pen) 15 units SC QAM MELE Stop: 11/14/20 22:29 Last Admin: 10/16/20 08:36 Dose: 15 units Documented by: Insulin Glargine (Insulin Glargine Solostar 100 Units/Ml 3 Ml Pen) 0 units SC HS MELE; Protocol Stop: 11/15/20 20:59 Last Admin: 10/16/20 21:00 Dose: 8 units Documented by: Miscellaneous (Carbohydrates For Hypoglycemia ) 15 - 30 gm PO UD PRN PRN Reason: Hypoglycemia Treatment Stop: 11/14/20 22:29 Miscellaneous Information (Vancomycin Consult Active) 1 ea N/A UD PRN PRN Reason: Consult Stop: 11/14/20 18:34 Miscellaneous Information (Meropenem Consult Acitve) 1 ea N/A UD PRN PRN Reason: Consult Stop: 11/14/20 21:56 Miscellaneous Information (Pharmacy Glycemic Mgmt Consult) 1 ea N/A UD PRN PRN Reason: Consult Stop: 11/15/20 08:05 Polyethylene Glycol (Polyethylene (Miralax) 17 Gm Pack) 17 gm PO DAILY PRN PRN Reason: Constipation Stop: 11/14/20 21:56 (1) Diabetic foot ulcer Diabetes mellitus type: other specified (including ANEESH) Diabetic foot ulcer location: toe Laterality: unspecified laterality Non-pressure ulcer stage: unspecified non-pressure ulcer stage Qualified Code(s): E13.621 - Other specified diabetes mellitus with foot ulcer; L97.509 - Non-pressure chronic ulcer of other part of unspecified foot with unspecified severity (2) Osteomyelitis Laterality: unspecified laterality Osteomyelitis location: foot Osteomyelitis type: other acute Qualified Code(s): M86.179 - Other acute osteomyelitis, unspecified ankle and foot
[2020-10-17] MEDS: ATORVASTATIN 20 MG TAB PO SCH (07:36)
[2020-10-17] MEDS: INSULIN GLARGINE SOLOSTAR 100 UNITS/ML 3 ML PEN SC SCH ×2 (08:58→20:46)
[2020-10-17] MEDS ORDERED: ONDANSETRON INJ 2 MG/ML 2 ML VIAL ONE (14:09)
[2020-10-17] MEDS ORDERED: LIDOCAINE 2% 2 ML VIAL/AMP(20MG/ML) INFIL ONE (14:09)
[2020-10-17] MEDS ORDERED: PROPOFOL IV EMULSION 10 MG/ML 20 ML VIAL IV ONE ×3 (14:09→16:44)
--- NOTE | 2020-10-17 14:28 | Pharmacy Report ---
Pharmacy Glycemic Short Note 2 - Date of Service October 17, 2020 - Glycemic Short BSG Results (Last 24 hours): 10/16/20 10/16/20 10/17/20 17:46 20:45 00:09 Glucose POC Glucose 195 H 172 H 179 H 10/17/20 10/17/20 10/17/20 04:24 05:25 06:03 Glucose 156 H POC Glucose 172 H 158 H 10/17/20 10/17/20 08:20 12:11 Glucose POC Glucose 144 H 127 H OUTPATIENT ANTIDIABETIC REGIMEN: * Metformin 500 mg PO BIDM * Glimepiride 2 mg PO daily * HbA1c: 11.8% (10/16/20) ASSESSMENT: 10/17: * BSGs yesterday of 229, 206, 195, and 172 mg/dL * NPO today for OR - possible I&D vs. amputation of right great toe * Fasting BSG of 158 mg/dL - will likely maintain current Lantus dosing * Antibiotics changed to vancomycin and cefepime 10/16: * DES is a 50 year old male admitted last evening for IV antibiotic treatment of diabetic foot ulcer and possible osteomyelitis * BSGs elevated last evening, 326 mg/dL on admission * Received 6 units IV insulin, 12 units of SC bolus, and 5 units of Lantus * Fasting BSG of 229 mg/dL this morning - pharmacy consulted for glycemic management at that time * Initially NPO for possible surgical intervention, ordered diet at lunchtime * BSG of 206 at lunchtime was obtained postprandially - will cover carbs only PLAN FOR INPATIENT GLYCEMIC CONTROL: * Hold outpatient oral diabetes medications * Basal insulin * Lantus 15 units SC x 1 this morning * Lantus scale to provide 0-15 units SC HS (see EHR for details) * Bolus insulin * NovoLog per scale ACHS or Q6hrs while NPO * Goal Range: Low 110 mg/dL - High 140 mg/dL * Correction Factor: 20 mg/dL/unit * Nutritional / Prandial insulin per carb ratio of 1 unit per 7 grams CHO consumed PLAN FOR DISCHARGE: * HbA1c of 11.8% suggests very poor outpatient glycemic control * Goal HbA1c for this patient should be less than 7% * Since A1c is greater than or equal to 10%, should consider triple therapy with metformin + basal insulin + (GLP1-RA OR prandial insulin). * Suggest discontinuing glimepiride if insulin initiated to decrease likelihood of hypoglycemia * Will follow inpatient insulin needs and suggest appropriate dosing closer to time of discharge * Also suggest continuing to titrate metformin dosing upwards as recommended. * Dosage increases should be made in increments of 500 mg weekly, up to 2,000 mg/day PO, given in divided doses. * Suggest switching to XR formulation, as it is generally better tolerated * B12 supplementation may be necessary with fdc metformin
--- NOTE | 2020-10-17 14:32 | Pharmacy Report ---
Pharmacy Abx Dose Short Note - Date of Service October 17, 2020 - Assessment & Plan Assessment 50 year old M receiving vancomycin and cefepime for treatment of diabetic foot infection/right great toe osteomyelitis. Patient to OR today for I&D vs. amputation of right great toe. Right foot culture growing group B beta Strep w/ sensitivities available. Discussed with hospitalist, meropenem de-escalated to cefepime, but will wait for OR culture for further de-escalation of antibiotics. Vancomycin to be extended past 48 hours for now. Day # 3 of antimicrobial therapy. Plan Will obtain vancomycin tough this evening due to significant improvement in renal function since admission. Evening pharmacist to assess. Pharmacy will continue to follow and will adjust dose/frequency as necessary. Thank you.
[2020-10-17] MEDS ORDERED: BUPIVACAINE 0.5 % 5 MG/1 ML MPF 30ML VIAL ONE (14:50)
[2020-10-17] MEDS ORDERED: MIDAZOLAM HCL 1 MG/ML 2ML VIAL ONE (14:56)
[2020-10-17] MEDS ORDERED: fentaNYL citrate 100 MCG/2 ML VIAL ONE (14:56)
--- NOTE | 2020-10-17 14:59 | History & Physical Bridge Note ---
Date of Service October 17, 2020 History & Physical Bridge Note I have examined the patient, reviewed the History & Physical and in the interval since the performance of the History & Physical I have noted the following changes of clinical significance: no changes noted
--- NOTE | 2020-10-17 15:01 | Anesthesiology Consultation ---
Date of Service October 17, 2020 Assessment & Plan (1) Encounter for pre-operative examination: Chart Review Chart Review: Acceptable Risk for Surgery and Patient NOT seen in Pre Admission Testing Consults Requested none History Surgery Operation Date: 10/17/20 07:00 Proposed Procedures p Incision and Drainage Right Great Toe "vs" Amputation of Right Great Toe - Ricco Rodas DO Height/Weight Height: 5 ft 7 in Weight: 93.9 kg Allergies Allergy/AdvReac Type Severity Reaction Status Date / Time Penicillins Allergy Intermediate Hives Verified 10/17/20 14:25 Medications Home Medications Medication Instructions Recorded Confirmed Last Taken atorvastatin 20 mg PO DAILY 10/15/20 10/15/20 Unknown glimepiride 2 mg PO DAILY 10/15/20 10/15/20 Unknown metformin 500 mg PO BID 10/15/20 10/15/20 Unknown Active Medications Generic Name Dose Route Start Last Admin Trade Name Freq PRN Reason Stop Dose Admin Atorvastatin Calcium 20 mg 10/16/20 09:00 10/17/20 07:36 Atorvastatin 20 Mg Tab PO 11/15/20 08:59 20 mg DAILY MELE Administration Sodium Chloride 1,000 mls @ 100 mls/hr 10/15/20 22:30 10/17/20 05:57 Nss 1000ml IV 11/14/20 22:29 100 mls/hr .Q10H MELE Administration Vancomycin HCl 1,500 mg/ 530 mls @ 200 mls/hr 10/16/20 18:00 10/17/20 08:36 Sodium Chloride IV 11/27/20 17:59 Infused Q12H MEEL Infusion Protocol Insulin Aspart 0 units 10/17/20 06:00 10/17/20 12:33 Insulin Aspart 100 Units/Ml 3 Ml Pen SC 11/15/20 11:29 Not Given Q6 MELE Insulin Glargine 15 units 10/16/20 09:00 10/17/20 08:58 Insulin Glargine Solostar 100 Units/Ml 3 Ml Pen SC 11/14/20 22:29 15 units QAM MELE Administration Insulin Glargine 0 units 10/16/20 21:00 10/16/20 21:00 Insulin Glargine Solostar 100 Units/Ml 3 Ml Pen SC 11/15/20 20:59 8 units HS MELE Administration Protocol NPO Date Last Intake of Fluids: 10/16/20 Time Last Intake of Fluids: 23:45 Date Last Intake of Solids: 10/16/20 Time Last Intake of Solids: 18:00 Past Medical History Medical History High cholesterol Type 2 diabetes mellitus Social History Smoking Status: Never smoker Hx Alcohol Use: No Hx Substance Use: No Physical Exam Vital Signs Last Vital Signs Temp 37.4 C 10/17/20 14:27 Pulse 86 10/17/20 14:27 Resp 20 10/17/20 14:27 BP 172/94 H 10/17/20 14:27 Pulse Ox 95 10/17/20 14:27 Testing Laboratory Results 10/17/20 05:25 10/17/20 05:25 Hemoglobin A1c 11.8 % (4.5-5.6) H 10/16/20 06:15 10/15/20 18:44 Gram Stain - Final Foot,Right Wound Culture - Final Group B Beta Strep Svetlana albicans 10/16/20 07:16 Aerobic Blood Culture - Preliminary Blood No growth in Aerobic bottle after 24 hours. Anaerobic Blood Culture - Preliminary No growth in Anaerobic bottle after 24 hours. 10/16/20 07:03 Aerobic Blood Culture - Preliminary Blood No growth in Aerobic bottle after 24 hours. Anaerobic Blood Culture - Preliminary No growth in Anaerobic bottle after 24 hours. 10/17/20 10/17/20 10/17/20 12:11 08:20 06:03 POC Glucose 127 H 144 H 158 H 10/17/20 04:24 POC Glucose 172 H
[2020-10-17] MEDS ORDERED: ePHEDrine sulfate 50 MG/ML AMP IV PRN ×2 (15:19)
[2020-10-17] MEDS ORDERED: ATROPINE SULFATE 0.1 MG/ML 10ML SYR IV PRN ×2 (15:19)
[2020-10-17] MEDS ORDERED: fentaNYL citrate 100 MCG/2 ML VIAL IV PRN ×2 (15:19)
[2020-10-17] MEDS ORDERED: ONDANSETRON INJ 2 MG/ML 2 ML VIAL IV PRN ×3 (15:19→17:26)
--- NOTE | 2020-10-17 16:28 | Post Operative Brief Note ---
Immediate Post Op Note v1 Date of Surgery October 17, 2020 Pre & Post Diagnosis Operation Date: 10/17/20 07:00 Pre-Op Diagnosis: Osteomyelitis right great toe, flexor hallucis longus septic necrosis, extensor hallucis longus septic tenosynovitis, myositis first intermetatarsal space, diabetic foot ulcer Post-Op Diagnosis: Osteomyelitis right great toe, flexor hallucis longus septic necrosis, extensor hallucis longus septic tenosynovitis, abscess first intermetatarsal space, muscle necrosis first intermetatarsal space, diabetic foot ulcer I identified the patient and participated in the time-out.: Yes Procedure Operation Date: 10/17/20 07:00 Actual Procedures p Amputation of Right Great Toe, Resection flexor hallucis longus tendon, Tenosynovectomy Extensor Hallucis Longus , debridement muscle first intermetatarsal space, Incision and drainage of abscess first intermetatarsal space(Right) - Ricco Rodas DO Surgeon Ricco Rodas DO Engine Monitor Jay Stovall PA-C Estimated Blood Loss 3 Findings Consistent with Post-Op Diagnosis Specimens Bone and tissue amputated great toe Drains Other (1/2 inch iodoform gauze packing) Anesthesia Type MAC Regional Complications none Disposition Accompanied Patient To Recovery: No Disposition: Recovery Room Overlapping Procedure I was present for: the critical portions of procedure. I was immediately available: during the entire case.
--- NOTE | 2020-10-17 16:56 | Anesthesiology Progress Note ---
Date of Service October 17, 2020 Anesthesia Post Procedure Vital Signs Vital Signs: Temp Pulse Pulse Pulse Resp BP Pulse Ox 10/17/20 16:50 79 20 146/89 H 100 10/17/20 16:40 77 18 138/97 100 10/17/20 16:39 36.0 C L 83 13 121/77 99 10/17/20 14:27 37.4 C 86 20 172/94 H 95 10/17/20 08:08 37.3 C 88 18 160/85 H 97 10/17/20 00:00 37.2 C 88 16 139/82 94 Transfer of Care Handoff Completed per policy Notes Mental Status: alert / awake / arousable Patient Amnestic to Procedure: Yes Nausea / Vomiting: adequately controlled Pain: adequately controlled Airway Patency, RR, SpO2: stable & adequate BP & HR: stable & adequate Hydration State: stable & adequate Anesthetic Complications: no major complications apparent
--- NOTE | 2020-10-17 17:21 | Anesthesiology Progress Note ---
Date of Service October 17, 2020 Anesthesia Post Procedure Vital Signs Vital Signs: Temp Pulse Pulse Pulse Resp BP Pulse Ox 10/17/20 17:00 36.5 C 79 18 148/88 H 97 10/17/20 16:50 79 20 146/89 H 100 10/17/20 16:40 77 18 138/97 100 10/17/20 16:39 36.0 C L 83 13 121/77 99 10/17/20 14:27 37.4 C 86 20 172/94 H 95 10/17/20 08:08 37.3 C 88 18 160/85 H 97 10/17/20 00:00 37.2 C 88 16 139/82 94 Transfer of Care Handoff Completed per policy Notes Mental Status: alert / awake / arousable and participated in evaluation Patient Amnestic to Procedure: Yes Nausea / Vomiting: adequately controlled Pain: adequately controlled Airway Patency, RR, SpO2: stable & adequate BP & HR: stable & adequate Hydration State: stable & adequate Anesthetic Complications: no major complications apparent and Pt Satisfied with anesthetic care
[2020-10-17] MEDS ORDERED: HYDROmorphone INJ 0.5 MG/0.5 ML SYR IV PRN (17:26)
[2020-10-17] MEDS ORDERED: NALOXONE HCL 0.4 MG/1 ML VIAL/CARP IV PRN (17:26)
[2020-10-17] MEDS ORDERED: oxyCODONE HCL IR 5 MG TAB (IMMEDIATE RELEASE) PO PRN (17:26)
[2020-10-17] MEDS ORDERED: diphenhydrAMINE Capsule 25 MG CAP PO PRN (17:26)
[2020-10-17] MEDS ORDERED: METOCLOPRAMIDE HCL INJ 5 MG/ML 2 ML VIAL IV PRN (17:26)
[2020-10-17] MEDS ORDERED: MAGNESIUM HYDROXIDE SUSP 30 ML UDC PO PRN (17:26)
[2020-10-17] MEDS ORDERED: bisacodyL 10 MG SUPP PR PRN (17:26)
[2020-10-17] MEDS ORDERED: VANCOMYCIN TROUGH ONE (17:30)
[2020-10-17] MEDS ORDERED: SODIUM CHLORIDE 0.9% 1000ML 1,000 ML IV SCH (18:00)
[2020-10-17] MEDS: CEFEPIME 2,000 MG in SYRINGE 0 ML IV SCH (18:01)
[2020-10-17] MEDS: SENNA 8.6 MG TAB PO SCH (20:45)
[2020-10-17] MEDS: DOCUSATE SODIUM 100 MG CAP PO SCH (20:45)
[2020-10-18] MEDS: CEFEPIME 2,000 MG in SYRINGE 0 ML IV SCH ×4 (02:08→21:23)
[2020-10-18] MEDS: VANCOMYCIN HCL 1,500 MG in SODIUM CHLORIDE 0.9% 500 ML IV SCH ×2 (05:57→18:16)
[2020-10-18 06:35] LABS: Hemoglobin 12.1 g/dL (14.0-18.0); Mean Corpuscular Hgb Conc 34.6 g/dL (32-36); Mean Corpuscular Volume 86.6 fL (80-100); Mean Platelet Volume 9.7 fL (7.4-10.4); Platelet Count 269 K/uL (130-400); RDW Coefficient of Variation 12.2 % (11.5-14.5); Red Blood Count 4.04 M/uL (4.7-6.1); White Blood Count 11.95 K/uL (4.8-10.8)
--- NOTE | 2020-10-18 06:54 | Hospitalist Progress Note ---
Date of Service October 18, 2020 Assessment & Plan (1) Osteomyelitis: (2) Diabetic foot ulcer: (3) Diabetes mellitus: This is a 50-year-old male with a history of diabetes, who presents with right great toe osteomyelitis. 1. Right great toe osteomyelitis and diabetic foot ulcer: Empirically started on vancomycin and meropenem as the patient is allergic to penicillins. Wound care and ortho consult. Gentle fluids and monitor in the medical floor. Orthopedics evaluated patient, MRI of right foot ordered - IMPRESSION: 1. Plantar soft tissue ulceration at the level the great toe 2. MRI evidence of osteomyelitis involving the proximal distal phalanges of the great toe 3. Suspected gas within the soft tissues 4. Diffuse edema within the foot musculature consistent with a myositis. 5. Area of decreased enhancement within the flexor pollicis brevis, possibly secondary to an area of myonecrosis 6. Pathologic fracture involving the distal phalanx the great toe Now s/p amputation right great toe/I&D metacarpal phalangeal abscess (10/17), w/ Dr. Rodas. Adjusted antibiotics with pharmacy - since the patient did not have any reaction to cefepime that he received in the ED, switched to Vanco and cefepime. Wound culture positive for group B strep. Ideally will obtain culture in the OR. 2. Diabetes mellitus type II, uncontrolled: Continue globin A1c 11.8% Hold his glimepiride and metformin. Blood sugars elevated on admission -Received a dose of 6 units of insulin in the ER. We will follow his blood sugars. Placed him on Lantus 5 units b.i.d., insulin sliding scale. Glycemic pharmacy also consulted. 3. hyperlipidemia: Continue statin. 4. Obesity: Needs counseling. 5. Elevated bilirubin: Follow repeat labs in the a.m. 6. Acute kidney injury: On admission creatinine of 1.4. Baseline creatinine 0.9 in 2017. Getting fluids. Avoid nephrotoxic agents. Resolved - current Cr 0.8 DVT prophylaxis: Sequential compression devices, will start subq heparin Expect to discharge home and follow up w/ orthopedics and PCP Social service to help with discharge planning. Admission and Anticipated Discharge Date Admission Date: October 15, 2020 Subjective Patient seen in follow-up of osteomyelitis, hyperglycemia, uncontrolled diabetes mellitus Postop day 1 status post amputation right great toe/I&D metacarpal phalangeal abscess Currently is lying in bed, no acute distress denies any pain Also denies any fever chills chest pain shortness of breath Pain is currently well controlled Review of Systems Review of Systems: All systems reviewed & are unremarkable except as noted in HPI & below Constitutional: no fever and no chills Respiratory: no cough and no dyspnea Cardiovascular: no chest pain and no palpitations Gastrointestinal: no abdominal pain, no nausea and no vomiting Physical Exam Physical Exam: GENERAL: The patient is obese male, not in acute distress. HEENT: NC/AT, Pupils equal, round, reactive to light. Oral mucosa moist. NECK: No JVD. No neck masses. CARDIOVASCULAR: S1, S2 heard, regular rate and rhythm, no murmur, no gallop. RESPIRATORY : Normal AP diameter. No accessory muscle use. No wheezing, no crackles. ABDOMEN: Soft, bowel sounds present, nontender. No distention. NEURO: Alert and oriented x3, no facial asymmetry, speech fluent,moves extremities EXTREMITIES: s/p amputation right great toe, surg. dressings applied Results & Data Results & Data ([facility]) Vital Signs (Past 12 Hours) Vital Signs Temp Pulse Resp BP Pulse Ox 10/18/20 03:04 37.6 C H 91 H 16 157/82 H 95 10/18/20 00:00 37.3 C 86 16 156/81 H 96 10/17/20 20:36 37 C 88 18 173/97 H 95 10/17/20 19:20 37.0 C 90 16 165/92 H 96 Laboratory Results 10/18/20 10/18/20 10/18/20 Range/Units 08:16 06:19 06:19 WBC 11.95 H (4.8-10.8) K/uL RBC 4.04 L (4.7-6.1) M/uL Hgb 12.1 L (14.0-18.0) g/dL Hct 35.0 L (42-52) % MCV 86.6 (80-100) fL MCH 30.0 (25-34) pg MCHC 34.6 (32-36) g/dL RDW Std Deviation 39.0 (36.4-46.3) fL RDW Coeff of Gracie 12.2 (11.5-14.5) % Plt Count 269 (130-400) K/uL MPV 9.7 (7.4-10.4) fL Sodium 135 L (136-145) mmol/L Potassium 3.8 (3.5-5.1) mmol/L Chloride 104 (98-107) mmol/L Carbon Dioxide 22 (21-32) mmol/L Anion Gap 10.0 (3-11) BUN 11 (7-18) mg/dl Creatinine 0.61 (0.6-1.4) mg/dl Est Cr Clr Drug Dosing 154.7 ml/min Est GFR ( Amer) 133.1 ml/min Est GFR (Non-Af Amer) 114.8 ml/min BUN/Creatinine Ratio 17.9 (10-20) Glucose 144 H (70-99) mg/dl POC Glucose 153 H (70-99) mg/dl Calcium 8.1 L (8.5-10.1) mg/dl Phosphorus 3.0 (2.5-4.9) mg/dl Magnesium 1.6 L (1.8-2.4) mg/dl Vancomycin Trough (See Comment) mcg/ml 10/17/20 10/17/20 10/17/20 Range/Units 20:27 17:21 16:41 WBC (4.8-10.8) K/uL RBC (4.7-6.1) M/uL Hgb (14.0-18.0) g/dL Hct (42-52) % MCV (80-100) fL MCH (25-34) pg MCHC (32-36) g/dL RDW Std Deviation (36.4-46.3) fL RDW Coeff of Gracie (11.5-14.5) % Plt Count (130-400) K/uL MPV (7.4-10.4) fL Sodium (136-145) mmol/L Potassium (3.5-5.1) mmol/L Chloride (98-107) mmol/L Carbon Dioxide (21-32) mmol/L Anion Gap (3-11) BUN (7-18) mg/dl Creatinine (0.6-1.4) mg/dl Est Cr Clr Drug Dosing ml/min Est GFR ( Amer) ml/min Est GFR (Non-Af Amer) ml/min BUN/Creatinine Ratio (10-20) Glucose (70-99) mg/dl POC Glucose 145 H 114 H (70-99) mg/dl Calcium (8.5-10.1) mg/dl Phosphorus (2.5-4.9) mg/dl Magnesium (1.8-2.4) mg/dl Vancomycin Trough 12.9 (See Comment) mcg/ml 10/17/20 Range/Units 12:11 WBC (4.8-10.8) K/uL RBC (4.7-6.1) M/uL Hgb (14.0-18.0) g/dL Hct (42-52) % MCV (80-100) fL MCH (25-34) pg MCHC (32-36) g/dL RDW Std Deviation (36.4-46.3) fL RDW Coeff of Gracie (11.5-14.5) % Plt Count (130-400) K/uL MPV (7.4-10.4) fL Sodium (136-145) mmol/L Potassium (3.5-5.1) mmol/L Chloride (98-107) mmol/L Carbon Dioxide (21-32) mmol/L Anion Gap (3-11) BUN (7-18) mg/dl Creatinine (0.6-1.4) mg/dl Est Cr Clr Drug Dosing ml/min Est GFR ( Amer) ml/min Est GFR (Non-Af Amer) ml/min BUN/Creatinine Ratio (10-20) Glucose (70-99) mg/dl POC Glucose 127 H (70-99) mg/dl Calcium (8.5-10.1) mg/dl Phosphorus (2.5-4.9) mg/dl Magnesium (1.8-2.4) mg/dl Vancomycin Trough (See Comment) mcg/ml (1) Diabetic foot ulcer Diabetes mellitus type: other specified (including ANEESH) Diabetic foot ulcer location: toe Laterality: unspecified laterality Non-pressure ulcer stage: unspecified non-pressure ulcer stage Qualified Code(s): E13.621 - Other specified diabetes mellitus with foot ulcer; L97.509 - Non-pressure chronic ulcer of other part of unspecified foot with unspecified severity (2) Osteomyelitis Laterality: unspecified laterality Osteomyelitis location: foot Osteomyelitis type: other acute Qualified Code(s): M86.179 - Other acute osteomyelitis, unspecified ankle and foot
[2020-10-18 06:57] LABS: BUN Creatinine Ratio 17.9 (10-20); Calcium 8.1 mg/dl (8.5-10.1); Creatinine Clr Calc Pharmacy 154.7 ml/min; Est GFR (African American) 133.1 ml/min; Est GFR (Non-African American) 114.8 ml/min; Magnesium 1.6 mg/dl (1.8-2.4); Potassium 3.8 mmol/L (3.5-5.1)
--- NOTE | 2020-10-18 08:11 | Orthopedic Progress Note ---
Date of Service October 18, 2020 Assessment & Plan (1) Diabetic foot ulcer: Postop day 1 status post amputation right great toe/I&D metacarpal phalangeal abscess PT/OT protocols. Weightbearing on the heel only. DVT prophylaxis-as per medical service. Okay to resume/start anticoags if needed. Continue SCDs. Pain management as written. Will order cast shoe for the right foot. Admission and Anticipated Discharge Date Admission Date: October 15, 2020 Supervising Physician Co-Signing Physician Notes Patient seen and examined. Agree with TRISTA Potter's note as above. Patient is resting comfortably. He denies any pain in his right foot. Dressings are clean, dry, and intact. Plan for dressing change tomorrow. Subjective Postop day 1 Patient awake and alert. No complaints this morning. Pain is controlled. Physical Exam Physical Exam: Dressings are clean, dry, and intact. Calves are soft nontender. Good range of motion of his right ankle. Results & Data ([facility]) Vital Signs (Past 12 Hours) Vital Signs Temp Pulse Pulse Resp BP Pulse Ox 10/18/20 07:46 37.2 C 88 17 160/100 H 96 10/18/20 06:56 37.6 C H 88 16 165/85 H 96 10/18/20 03:04 37.6 C H 91 H 16 157/82 H 95 10/18/20 00:00 37.3 C 86 16 156/81 H 96 10/17/20 20:36 37 C 88 18 173/97 H 95 (1) Diabetic foot ulcer Diabetes mellitus type: other specified (including ANEESH) Diabetic foot ulcer location: toe Laterality: unspecified laterality Non-pressure ulcer stage: uns pecified non-pressure ulcer stage Qualified Code(s): E13.621 - Other specified diabetes mellitus with foot ulcer; L97.509 - Non-pressure chronic ulcer of other part of unspecified foot with unspecified severity
[2020-10-18] MEDS: DOCUSATE SODIUM 100 MG CAP PO SCH ×2 (08:43→21:23)
[2020-10-18] MEDS: MULTIVITAMIN TAB PO SCH (08:43)
[2020-10-18] MEDS: INSULIN ASPART 100 UNITS/ML 3 ML PEN SC SCH ×4 (09:53→21:23)
[2020-10-18] MEDS: INSULIN GLARGINE SOLOSTAR 100 UNITS/ML 3 ML PEN SC SCH ×2 (09:54→21:24)
--- NOTE | 2020-10-18 10:25 | Pharmacy Report ---
Pharmacy Glycemic Short Note 2 - Date of Service October 18, 2020 - Glycemic Short BSG Results (Last 24 hours): 10/17/20 10/17/20 10/17/20 12:11 16:41 20:27 Glucose POC Glucose 127 H 114 H 145 H 10/18/20 10/18/20 06:19 08:16 Glucose 144 H POC Glucose 153 H OUTPATIENT ANTIDIABETIC REGIMEN: * Metformin 500 mg PO BIDM * Glimepiride 2 mg PO daily * HbA1c: 11.8% (10/16/20) ASSESSMENT: 10/18 * Pt has received 30 units of insulin over the past 24hrs * 23 units of basal with Lantus * 7 units of bolus with NovoLog * BSGs [id number] mg/dl * All BSGs in range with current orders. No changes needed today * Regimen weighted towards basal insulin because pt with low PO intake yesterday secondary to surgery 10/17: * BSGs yesterday of 229, 206, 195, and 172 mg/dL * NPO today for OR - possible I&D vs. amputation of right great toe * Fasting BSG of 158 mg/dL - will likely maintain current Lantus dosing * Antibiotics changed to vancomycin and cefepime 10/16: * DES is a 50 year old male admitted last evening for IV antibiotic treatment of diabetic foot ulcer and possible osteomyelitis * BSGs elevated last evening, 326 mg/dL on admission * Received 6 units IV insulin, 12 units of SC bolus, and 5 units of Lantus * Fasting BSG of 229 mg/dL this morning - pharmacy consulted for glycemic management at that time * Initially NPO for possible surgical intervention, ordered diet at lunchtime * BSG of 206 at lunchtime was obtained postprandially - will cover carbs only PLAN FOR INPATIENT GLYCEMIC CONTROL: * Hold outpatient oral diabetes medications * Basal insulin * Lantus 15 units SC daily in AM * Lantus scale to provide 8-15 units SC HS (see EHR for details) * Bolus insulin * NovoLog per scale ACHS or Q6hrs while NPO * Goal Range: Low 110 mg/dL - High 140 mg/dL * Correction Factor: 20 mg/dL/unit * Nutritional / Prandial insulin per carb ratio of 1 unit per 7 grams CHO consumed PLAN FOR DISCHARGE: * HbA1c of 11.8% suggests very poor outpatient glycemic control * Goal HbA1c for this patient should be less than 7% * Since A1c is greater than or equal to 10%, should consider triple therapy with metformin + basal insulin + (GLP1-RA OR prandial insulin). * Suggest discontinuing glimepiride if insulin initiated to decrease likelihood of hypoglycemia * Will follow inpatient insulin needs and suggest appropriate dosing closer to time of discharge * Also suggest continuing to titrate metformin dosing upwards as recommended. * Dosage increases should be made in increments of 500 mg weekly, up to 2,000 mg/day PO, given in divided doses. * Suggest switching to XR formulation, as it is generally better tolerated * B12 supplementation may be necessary with long term acute care registered nurse metformin
[2020-10-18] MEDS: ATORVASTATIN 20 MG TAB PO SCH (10:56)
[2020-10-18] MEDS: MAGNESIUM SULFATE / D5W 1 GM/100 ML BAG IV SCH ×2 (11:17→13:48)
--- NOTE | 2020-10-18 14:50 | Operative Report (OR) ---
DATE OF OPERATION: 10/17/2020 PREOPERATIVE DIAGNOSES: 1. Osteomyelitis of the right great toe. 2. Diabetic ulcer, right great toe. POSTOPERATIVE DIAGNOSIS: 1. Osteomyelitis, right great toe. 2. Diabetic ulcer, right great toe. 3. Flexor hallucis longus septic necrosis. 4. Extensor hallucis longus septic tenosynovitis. 5. Abscess first intermetatarsal space of the foot. 6. Muscle necrosis first intermetatarsal space. PROCEDURE: 1. Right great toe amputation. 2. Resection of flexor hallucis longus septic tendon. 3. Tenosynovectomy of extensor hallucis longus tendon. 4. Incision and drainage of abscess, first intermetatarsal space of the foot. 5. Debridement of necrotic muscle, first intermetatarsal space. SURGEON: Ricco Rodas DO. PET STYLIST: Jay Stovall PA-C who was present for patient positioning, sterile prep and drape, management of retractors and instruments. He was present through the critical portions of the case including wound closure, application of sterile dressing and transport of the patient to recovery. ANESTHESIA: MAC, regional. SPECIMENS: Aerobic, anaerobic, Gram stain from the great toe and bone and tissue, great toe. DRAINS: 1/2 inch iodoform gauze packing. COMPLICATIONS: None. BLOOD LOSS: 3 mL. PERTINENT HISTORY: This is a 50-year-old gentleman who began to have a painful ulceration of the right great toe. He has been a diabetic for several years. He noted that the toe began to swell profusely, began having increasing pain. He then presented to the Emergency Department, was admitted to the hospital and placed on IV antibiotics. Had radiographs and MRI, which demonstrated osteomyelitis of the right great toe with myositis and inflammation around the extensor and flexor tendons of the great toe. The patient was then scheduled for surgery as indicated. All potential risks, benefits, complications, alternatives, rehab potential for incomplete relief of symptoms, need for further surgery, DVT, PE, , persistent pain, swelling, scarring, weakness, neurovascular injury, wound complications, need for further amputation and surgery were discussed with the patient. The patient decided to proceed with the procedure as indicated. DESCRIPTION OF PROCEDURE: The patient was taken to the operative suite, placed supine on the operating table. After review of consent and identification of proper operative site, the patient was sedated. Right lower extremity was then sterilely prepped and draped in usual fashion, elevated and partially exsanguinated at the heel, extending proximally with an Esmarch bandage and an Esmarch tourniquet was applied over sterile surgical towel at the level of the ankle. Next, a partial ankle block was performed with 30 mL of 0.5% Marcaine plain followed by surgical timeout performed, followed by 15 blade scalpel circumferential asymmetric incision around the right great toe at the margin of necrosis with osteomyelitis and ulceration. There was noted to be full thickness skin loss and tissue necrosis, particularly along the medial pedicle of the great toe. Therefore, this had to be sacrificed extending from the mid, proximal phalanx shaft extending distally. Next, the abscess fluid and infectious material poured forth from the great toe after skin incisions were made. There was noted to be an insufficiency fracture through the proximal phalanx of the great toe as predicted per MRI. The distal half of the right great toe was then resected followed by use of a towel clip to grasp the residual proximal phalanx and then circumferential soft tissue dissection was performed around the joint capsule and collateral ligaments to remove the proximal phalanx of the right great toe. The first metatarsal head articular cartilage appeared to be normal-appearing. The medial sesamoid appeared to be affected by osteomyelitis with significant softening and partial dissolution. This was then sharply excised. The flexor hallucis longus was noted to have suppurative tenosynovitis surrounding it with degradation of the tendon. Therefore, the necrotic tendon was then sharply excised down to the level of the passage between the sesamoids. Next, the site was irrigated with pulsatile lavage with Ancef until clear. Next, the first intermetatarsal space was explored with a Metzenbaum scissor. There was noted to be an abscess fluid collection, which was decompressed after incision and drainage of the abscess using sharp dissection and curettage with a moderate sized curette. There was noted to be muscle necrosis in the first intermetatarsal space at this point. Debridement of muscle in the first intermetatarsal space was performed until all necrotic tissue was excised. Then, the site was then copiously irrigated with pulsatile lavage with Ancef until clear. Next, a 1/2 inch iodoform gauze packing was placed around the amputation site and then the flaps were loosely closed using interrupted 3-0 nylon sutures for a cosmetic flap closure. The drain was then pulled through a small stab incision proximally. Next, a sterile compressive dressing was applied, overwrapped with an Justin wrap. The tourniquet was released. The patient was awakened and taken to recovery in stable condition. I attest to the content of the Intraoperative Record and any orders documented therein. Any exception s are noted below.
[2020-10-18] MEDS: HEPARIN SOD 5,000 UNIT/0.5 ML VIAL SQ SCH (21:23)
[2020-10-18] MEDS: SENNA 8.6 MG TAB PO SCH (21:24)
[2020-10-19] MEDS: CEFEPIME 2,000 MG in SYRINGE 0 ML IV SCH ×3 (02:47→18:26)
[2020-10-19] MEDS: VANCOMYCIN HCL 1,500 MG in SODIUM CHLORIDE 0.9% 500 ML IV SCH ×2 (05:50→18:26)
[2020-10-19 06:47] LABS: Hematocrit (blood only) 34.6 % (42-52); Hemoglobin 11.9 g/dL (14.0-18.0); Mean Corpuscular Hemoglobin 29.6 pg (25-34); Mean Corpuscular Hgb Conc 34.4 g/dL (32-36); Mean Corpuscular Volume 86.1 fL (80-100); Mean Platelet Volume 9.7 fL (7.4-10.4); Platelet Count 297 K/uL (130-400); RDW Coefficient of Variation 12.3 % (11.5-14.5); RDW Standard Deviation 39.1 fL (36.4-46.3); Red Blood Count 4.02 M/uL (4.7-6.1); White Blood Count 11.89 K/uL (4.8-10.8)
[2020-10-19 07:05] LABS: Calcium 8.2 mg/dl (8.5-10.1); Creatinine Clr Calc Pharmacy 136.8 ml/min; Est GFR (African American) 126.5 ml/min; Est GFR (Non-African American) 109.1 ml/min; Potassium 3.7 mmol/L (3.5-5.1)
[2020-10-19] MEDS ORDERED: POTASSIUM CHLORIDE CRTAB 20 MEQ TABCR PO STA (07:41)
--- NOTE | 2020-10-19 07:43 | Hospitalist Progress Note ---
Date of Service October 19, 2020 Assessment & Plan (1) Osteomyelitis: (2) Diabetic foot ulcer: (3) Diabetes mellitus: This is a 50-year-old male with a history of diabetes, who presents with right great toe osteomyelitis. 1. Right great toe osteomyelitis and diabetic foot ulcer: Empirically started on vancomycin and meropenem as the patient is allergic to penicillins. Wound care and ortho consult. Gentle fluids and monitor in the medical floor. Orthopedics evaluated patient, MRI of right foot ordered - IMPRESSION: 1. Plantar soft tissue ulceration at the level the great toe 2. MRI evidence of osteomyelitis involving the proximal distal phalanges of the great toe 3. Suspected gas within the soft tissues 4. Diffuse edema within the foot musculature consistent with a myositis. 5. Area of decreased enhancement within the flexor pollicis brevis, possibly secondary to an area of myonecrosis 6. Pathologic fracture involving the distal phalanx the great toe Now s/p amputation right great toe/I&D metacarpal phalangeal abscess (10/17), w/ Dr. Rodas. Adjusted antibiotics with pharmacy - since the patient did not have any reaction to cefepime that he received in the ED, switched to Vanco and cefepime. Wound culture positive for group B strep. Ideally would obtain culture in the OR ->Unfortunately no cultx from OR Temp 37.7C - will repeat blood cultx (10/19) Per ortho - 10 day course of Abx d/t presence of abscess ID also consulted, cont. to monitor for fever spike and follow blood cultx 2. Diabetes mellitus type II, uncontrolled: Continue globin A1c 11.8% Hold his glimepiride and metformin. Blood sugars elevated on admission -Received a dose of 6 units of insulin in the ER. We will follow his blood sugars. Placed him on Lantus 5 units b.i.d., insulin sliding scale. Glycemic pharmacy also consulted. 3. hyperlipidemia: Continue statin. 4. Obesity: Needs counseling. 5. Elevated bilirubin: Follow repeat labs in the a.m. 6. Acute kidney injury: On admission creatinine of 1.4. Baseline creatinine 0.9 in 2017. Getting fluids. Avoid nephrotoxic agents. Resolved - current Cr 0.8 DVT prophylaxis: Sequential compression devices, will start subq heparin Expect to discharge home and follow up w/ orthopedics and PCP Social service to help with discharge planning. Admission and Anticipated Discharge Date Admission Date: October 15, 2020 Subjective Patient seen in follow-up of osteomyelitis, hyperglycemia, uncontrolled diabetes mellitus Postop day 2 status post amputation right great toe/I&D metacarpal phalangeal abscess Currently is lying in bed, no acute distress denies any pain Also denies any fever chills chest pain shortness of breath Pain is currently well controlled Noted temp 37.7C - pt does not feel any different - will obtain blood cltx Review of Systems Review of Systems: All systems reviewed & are unremarkable except as noted in HPI & below Constitutional: no chills Respiratory: no cough and no dyspnea Cardiovascular: no chest pain and no palpitations Gastrointestinal: no abdominal pain, no nausea and no vomiting Physical Exam Physical Exam: GENERAL: The patient is obese male, not in acute distress. HEENT: NC/AT, Pupils equal, round, reactive to light. Oral mucosa moist. NECK: No JVD. No neck masses. CARDIOVASCULAR: S1, S2 heard, regular rate and rhythm, no murmur, no gallop. RESPIRATORY : Normal AP diameter. No accessory muscle use. No wheezing, no crackles. ABDOMEN: Soft, bowel sounds present, nontender. No distention. NEURO: Alert and oriented x3, no facial asymmetry, speech fluent,moves extremities EXTREMITIES: s/p amputation right great toe, surg. dressings applied, boot on Results & Data Results & Data ([facility]) Vital Signs (Past 12 Hours) Vital Signs Temp Pulse Resp BP Pulse Ox 10/19/20 07:21 37.6 C H 75 18 156/83 H 97 10/18/20 23:00 37.7 C H 85 20 125/71 96 Laboratory Results 10/19/20 10/19/20 10/18/20 Range/Units 06:31 06:31 21:18 WBC 11.89 H (4.8-10.8) K/uL RBC 4.02 L (4.7-6.1) M/uL Hgb 11.9 L (14.0-18.0) g/dL Hct 34.6 L (42-52) % MCV 86.1 (80-100) fL MCH 29.6 (25-34) pg MCHC 34.4 (32-36) g/dL RDW Std Deviation 39.1 (36.4-46.3) fL RDW Coeff of Gracie 12.3 (11.5-14.5) % Plt Count 297 (130-400) K/uL MPV 9.7 (7.4-10.4) fL Sodium 134 L (136-145) mmol/L Potassium 3.7 (3.5-5.1) mmol/L Chloride 102 (98-107) mmol/L Carbon Dioxide 23 (21-32) mmol/L Anion Gap 9.0 (3-11) BUN 13 (7-18) mg/dl Creatinine 0.69 (0.6-1.4) mg/dl Est Cr Clr Drug Dosing 136.8 ml/min Est GFR ( Amer) 126.5 ml/min Est GFR (Non-Af Amer) 109.1 ml/min BUN/Creatinine Ratio 19.0 (10-20) Glucose 216 H (70-99) mg/dl POC Glucose 200 H (70-99) mg/dl Calcium 8.2 L (8.5-10.1) mg/dl Magnesium 2.0 (1.8-2.4) mg/dl 10/18/20 10/18/20 10/18/20 Range/Units 17:23 12:22 08:16 WBC (4.8-10.8) K/uL RBC (4.7-6.1) M/uL Hgb (14.0-18.0) g/dL Hct (42-52) % MCV (80-100) fL MCH (25-34) pg MCHC (32-36) g/dL RDW Std Deviation (36.4-46.3) fL RDW Coeff of Gracie (11.5-14.5) % Plt Count (130-400) K/uL MPV (7.4-10.4) fL Sodium (136-145) mmol/L Potassium (3.5-5.1) mmol/L Chloride (98-107) mmol/L Carbon Dioxide (21-32) mmol/L Anion Gap (3-11) BUN (7-18) mg/dl Creatinine (0.6-1.4) mg/dl Est Cr Clr Drug Dosing ml/min Est GFR ( Amer) ml/min Est GFR (Non-Af Amer) ml/min BUN/Creatinine Ratio (10-20) Glucose (70-99) mg/dl POC Glucose 178 H 186 H 153 H (70-99) mg/dl Calcium (8.5-10.1) mg/dl Magnesium (1.8-2.4) mg/dl Medications Administered Current Inpatient Medications Acetaminophen (Acetaminophen 325 Mg Tab) 650 mg PO Q4H PRN PRN Reason: pain/fever Stop: 11/14/20 21:56 Atorvastatin Calcium (Atorvastatin 20 Mg Tab) 20 mg PO DAILY MELE Stop: 11/15/20 08:59 Last Admin: 10/18/20 10:56 Dose: 20 mg Documented by: Bisacodyl (Bisacodyl 10 Mg Supp) 10 mg [place] DAILY PRN PRN Reason: Constipation Stop: 11/16/20 17:25 Dextrose (Dextrose 50% 50 Ml Syringe) 25 - 50 ml IV UD PRN; Protocol PRN Reason: Hypoglycemia Protocol Stop: 11/14/20 22:29 Diphenhydramine HCl (Diphenhydramine Capsule 25 Mg Cap) 25 mg PO Q8H PRN PRN Reason: Itching Stop: 11/16/20 17:25 Docusate Sodium (Docusate Sodium 100 Mg Cap) 100 mg PO BID MELE Stop: 11/16/20 20:59 Last Admin: 10/18/20 21:23 Dose: 100 mg Documented by: Glucagon (Glucagon For Inj 1 Mg Vial) 1 mg IM UD PRN; Protocol PRN Reason: Hypoglycemia Protocol Stop: 11/14/20 22:29 Glucose (Glucose 40% Gel 15 Gm Tube) 15 - 30 gm PO UD PRN; Protocol PRN Reason: Hypoglycemia Protocol Stop: 11/14/20 22:29 Glucose (Glucose 10 Tabs/Tube) 4 - 8 tabs PO UD PRN; Protocol PRN Reason: Hypoglycemia Protocol Stop: 11/14/20 22:29 Heparin Sodium (Porcine) (Heparin Sod 5,000 Unit/0.5 Ml Vial) 5,000 units SQ Q12 MELE Stop: 11/17/20 20:59 Last Admin: 10/18/20 21:23 Dose: 5,000 units Documented by: Hydromorphone HCl (Hydromorphone Inj 0.5 Mg/0.5 Ml Syr) 0.5 mg IV Q2H PRN PRN Reason: Pain or Pre PT Stop: 10/31/20 17:25 Vancomycin HCl 1,500 mg/ (Sodium Chloride) 530 mls @ 200 mls/hr IV Q12H [facility]; Protocol Stop: 11/27/20 17:59 Last Admin: 10/19/20 05:50 Dose: 200 mls/hr Documented by: Cefepime HCl 2,000 mg/ Syringe 20 mls @ 5 mls/min IV Q8H MELE; Protocol Stop: 11/28/20 17:59 Last Admin: 10/19/20 02:47 Dose: 5 mls/min Documented by: Insulin Aspart (Insulin Aspart 100 Units/Ml 3 Ml Pen) 0 units SC ACHS [facility] Stop: 11/16/20 20:59 Last Admin: 10/18/20 21:23 Dose: 3 units Documented by: Insulin Glargine (Insulin Glargine Solostar 100 Units/Ml 3 Ml Pen) 0 units SC BID [facility]; Protocol Stop: 11/18/20 08:59 Magnesium Hydroxide (Magnesium Hydroxide Susp 30 Ml Udc) 30 ml PO Q6H PRN PRN Reason: Constipation Stop: 11/16/20 17:25 Metoclopramide HCl (Metoclopramide Hcl Inj 5 Mg/Ml 2 Ml Vial) 10 mg IV Q6H PRN PRN Reason: Nausea And Vomiting Stop: 11/16/20 17:25 Miscellaneous (Carbohydrates For Hypoglycemia ) 15 - 30 gm PO UD PRN PRN Reason: Hypoglycemia Treatment Stop: 11/14/20 22:29 Miscellaneous Information (Vancomycin Consult Active) 1 ea N/A UD PRN PRN Reason: Consult Stop: 11/14/20 18:34 Miscellaneous Information (Pharmacy Glycemic Mgmt Consult) 1 ea N/A UD PRN PRN Reason: Consult Stop: 11/15/20 08:05 Multivitamins (Multivitamin Tab) 1 tab PO QAM [facility] Stop: 11/17/20 08:59 Last Admin: 10/18/20 08:43 Dose: 1 tab Documented by: Naloxone HCl (Naloxone Hcl 0.4 Mg/1 Ml Vial/Carp) 0.1 mg IV Q5M PRN PRN Reason: Oversedation/Resp Depression Stop: 11/16/20 17:25 Ondansetron HCl (Ondansetron Inj 2 Mg/Ml 2 Ml Vial) 4 mg IV Q6H PRN PRN Reason: Nausea And Vomiting Stop: 11/16/20 17:25 Oxycodone HCl (Oxycodone Hcl Ir 5 Mg Tab (Immediate Release)) 5 - 10 mg PO Q4H PRN PRN Reason: Pain or Pre PT Stop: 10/31/20 17:25 Polyethylene Glycol (Polyethylene (Miralax) 17 Gm Pack) 17 gm PO DAILY PRN PRN Reason: Constipation Stop: 11/14/20 21:56 Potassium Chloride (Potassium Chloride Crtab 20 Meq Tabcr) 20 meq PO NOW STA Stop: 10/19/20 07:42 Sennosides (Senna 8.6 Mg Tab) 17.2 mg PO HS MELE Stop: 11/16/20 20:59 Last Admin: 10/18/20 21:24 Dose: 17.2 mg Documented by: (1) Osteomyelitis Laterality: unspecified laterality Osteomyelitis location: foot Osteo myelitis type: other acute Qualified Code(s): M86.179 - Other acute osteomyelitis, unspecified ankle and foot (2) Diabetic foot ulcer Diabetes mellitus type: other specified (including ANEESH) Diabetic foot ulcer location: toe Laterality: unspecified laterality Non-pressure ulcer stage: unspecified non-pressure ulcer stage Qualified Code(s): E13.621 - Other specified diabetes mellitus with foot ulcer; L97.509 - Non-pressure chronic ulcer of other part of unspecified foot with unspecified severity
[2020-10-19] MEDS: DOCUSATE SODIUM 100 MG CAP PO SCH ×2 (08:10→22:28)
[2020-10-19] MEDS: HEPARIN SOD 5,000 UNIT/0.5 ML VIAL SQ SCH ×2 (08:24→22:24)
[2020-10-19] MEDS: ATORVASTATIN 20 MG TAB PO SCH (08:27)
[2020-10-19] MEDS: MULTIVITAMIN TAB PO SCH (08:27)
--- NOTE | 2020-10-19 09:00 | Pharmacy Report ---
Pharmacy Glycemic Short Note 2 - Date of Service October 19, 2020 - Glycemic Short BSG Results (Last 24 hours): 10/18/20 10/18/20 10/18/20 12:22 17:23 21:18 Glucose POC Glucose 186 H 178 H 200 H 10/19/20 10/19/20 06:31 08:16 Glucose 216 H POC Glucose 193 H OUTPATIENT ANTIDIABETIC REGIMEN: * Metformin 500 mg PO BIDM * Glimepiride 2 mg PO daily * HbA1c: 11.8% (10/16/20) ASSESSMENT: 10/19 * Pt has received 61 units of insulin over the past 24hrs * 30 units of basal with Lantus * 31 units of bolus with NovoLog * BSGs [phone] mg/dl * All BSGs above goal range despite doubling insulin doses yesterday. Will increase both basal and prandial insulin to achieve goal BSGs. * Goal is to maintain BSGs <200 mg/dl (ideally <150 mg/dl) to prevent post op complications * Also, recommend zinc, vitamin C and protein supplementation to promote wound healing in wound care patients Zinc: 50 mg elemental zinc (e.g., 220 mg zinc sulfate) PO three times per day until wound healed. Vitamin C: 500-3000mg/day depending on whether it causes soft stool, then back off Protein: may consult dietary for protein supplement recommendation. Could consider boost glucose control supplement 10/18 * Pt has received 30 units of insulin over the past 24hrs * 23 units of basal with Lantus * 7 units of bolus with NovoLog * BSGs [phone] mg/dl * All BSGs in range with current orders. No changes needed today * Regimen weighted towards basal insulin because pt with low PO intake yesterday secondary to surgery 10/17: * BSGs yesterday of 229, 206, 195, and 172 mg/dL * NPO today for OR - possible I&D vs. amputation of right great toe * Fasting BSG of 158 mg/dL - will likely maintain current Lantus dosing * Antibiotics changed to vancomycin and cefepime 10/16: * DES is a 50 year old male admitted last evening for IV antibiotic treatment of diabetic foot ulcer and possible osteomyelitis * BSGs elevated last evening, 326 mg/dL on admission * Received 6 units IV insulin, 12 units of SC bolus, and 5 units of Lantus * Fasting BSG of 229 mg/dL this morning - pharmacy consulted for glycemic management at that time * Initially NPO for possible surgical intervention, ordered diet at lunchtime * BSG of 206 at lunchtime was obtained postprandially - will cover carbs only PLAN FOR INPATIENT GLYCEMIC CONTROL: * Hold outpatient oral diabetes medications * Basal insulin * Lantus scale to provide 20-25 units SC BID (see EHR for details) * Bolus insulin * NovoLog per scale ACHS or Q6hrs while NPO * Goal Range: Low 110 mg/dL - High 140 mg/dL * Correction Factor: 20 mg/dL/unit * Nutritional / Prandial insulin per carb ratio of 1 unit per 6 grams CHO consumed PLAN FOR DISCHARGE: * HbA1c of 11.8% suggests very poor outpatient glycemic control * Goal HbA1c for this patient should be less than 7% * Since A1c is greater than or equal to 10%, should consider triple therapy with metformin + basal insulin + (GLP1-RA OR prandial insulin). * Suggest discontinuing glimepiride if insulin initiated to decrease likelihood of hypoglycemia * Will follow inpatient insulin needs and suggest appropriate dosing closer to time of discharge * Also suggest continuing to titrate metformin dosing upwards as recommended. * Dosage increases should be made in increments of 500 mg weekly, up to 2,000 mg/day PO, given in divided doses. * Suggest switching to XR formulation, as it is generally better tolerated * B12 supplementation may be necessary with half-way metformin
[2020-10-19] MEDS: INSULIN ASPART 100 UNITS/ML 3 ML PEN SC SCH ×4 (09:37→22:28)
[2020-10-19] MEDS: INSULIN GLARGINE SOLOSTAR 100 UNITS/ML 3 ML PEN SC SCH ×2 (09:39→22:28)
--- NOTE | 2020-10-19 09:51 | Orthopedic Progress Note ---
Date of Service October 19, 2020 Assessment & Plan (1) Diabetic foot ulcer: Postop day 2 status post amputation right great toe/I&D metacarpal phalangeal abscess PT/OT protocols. Weightbearing on the heel only. DVT prophylaxis-as per medical service. Okay to resume/start anticoags if needed. Continue SCDs. Pain management as written. Antibiotics as per medicine service. Plan for removal of remainder of packing tomorrow. Admission and Anticipated Discharge Date Admission Date: October 15, 2020 Supervising Physician Co-Signing Physician Notes Patient seen and examined. Agree with TRISTA Potter's note as above. Patient denies any pain in his foot. Dressings were changed this morning. Subjective Postop day 2 Patient sitting up in chair at the bedside. Nursing helps him back into bed to do dressing change. Patient states he is feeling well and has no complaints today. Pain is controlled. No new complaints. Physical Exam Physical Exam: Dressings are clean, dry, and intact. Dressings removed. Mild to moderate drainage noted on the dressing. Suture line is intact. Continues with mild to moderate erythema around the surgical area. Mild erythema on the dorsum of the foot. 6 inches of iodoform packing was removed. No excess purulent drainage when packing removed. Wound redressed with Adaptic, 4 x 4's, Kerlix, Justin wrap. Results & Data ([facility]) Vital Signs (Past 12 Hours) Vital Signs Temp Pulse Pulse Resp BP Pulse Ox 10/19/20 07:47 37.2 C 80 17 160/90 H 95 10/19/20 07:21 37.6 C H 75 18 156/83 H 97 10/18/20 23:00 37.7 C H 85 20 125/71 96 (1) Diabetic foot ulcer Diabetes mellitus type: other specified (including ANEESH) Diabetic foot ulcer location: toe Laterality: unspecified laterality Non-pressure ulcer stage: unspecified non-pressure ulcer stage Qualified Code(s): E13.621 - Other specified diabetes mellitus with foot ulcer; L97.509 - Non-pressure chronic ulcer of other part of unspecified foot with unspecified severity
[2020-10-19] MEDS: SENNA 8.6 MG TAB PO SCH (22:28)
[2020-10-20] MEDS: CEFEPIME 2,000 MG in SYRINGE 0 ML IV SCH ×3 (02:31→17:47)
[2020-10-20] MEDS ORDERED: VANCOMYCIN TROUGH ONE (05:30)
[2020-10-20] MEDS: VANCOMYCIN HCL 1,500 MG in SODIUM CHLORIDE 0.9% 500 ML IV SCH ×2 (06:40→17:47)
[2020-10-20 07:17] LABS: Hematocrit (blood only) 37.9 % (42-52); Mean Corpuscular Hemoglobin 29.9 pg (25-34); Mean Corpuscular Hgb Conc 34.3 g/dL (32-36); Mean Corpuscular Volume 87.1 fL (80-100); Mean Platelet Volume 9.7 fL (7.4-10.4); Platelet Count 348 K/uL (130-400); RDW Coefficient of Variation 12.4 % (11.5-14.5); RDW Standard Deviation 39.9 fL (36.4-46.3); Red Blood Count 4.35 M/uL (4.7-6.1); White Blood Count 9.69 K/uL (4.8-10.8)
[2020-10-20 07:33] LABS: BUN Creatinine Ratio 15.9 (10-20); Calcium 8.1 mg/dl (8.5-10.1); Creatinine Clr Calc Pharmacy 132.9 ml/min; Est GFR (Non-African American) 107.9 ml/min; Potassium 3.8 mmol/L (3.5-5.1)
--- NOTE | 2020-10-20 07:48 | Hospitalist Progress Note ---
Date of Service October 20, 2020 Assessment & Plan (1) Osteomyelitis: (2) Diabetic foot ulcer: (3) Diabetes mellitus: This is a 50-year-old male with a history of diabetes, who presents with right great toe osteomyelitis. 1. Right great toe osteomyelitis and diabetic foot ulcer: Empirically started on vancomycin and meropenem as the patient is allergic to penicillins. Wound care and ortho consult. Gentle fluids and monitor in the medical floor. Orthopedics evaluated patient, MRI of right foot ordered - IMPRESSION: 1. Plantar soft tissue ulceration at the level the great toe 2. MRI evidence of osteomyelitis involving the proximal distal phalanges of the great toe 3. Suspected gas within the soft tissues 4. Diffuse edema within the foot musculature consistent with a myositis. 5. Area of decreased enhancement within the flexor pollicis brevis, possibly secondary to an area of myonecrosis 6. Pathologic fracture involving the distal phalanx the great toe Now s/p amputation right great toe/I&D metacarpal phalangeal abscess (10/17), w/ Dr. Rodas. Adjusted antibiotics with pharmacy - since the patient did not have any reaction to cefepime that he received in the ED, switched to Vanco and cefepime. Wound culture positive for group B strep. Ideally would obtain culture in the OR ->Unfortunately no cultx from OR Temp 37.7C - will repeat blood cultx (10/19) Per ortho - 10 day course of Abx d/t presence of abscess ID also consulted, cont. to monitor for fever spike and follow blood cultx 2. Diabetes mellitus type II, uncontrolled: Continue globin A1c 11.8% Hold his glimepiride and metformin. Blood sugars elevated on admission -Received a dose of 6 units of insulin in the ER. We will follow his blood sugars. Placed him on Lantus 5 units b.i.d., insulin sliding scale. Glycemic pharmacy consulted. 3. hyperlipidemia: Continue statin. 4. Obesity: Needs counseling. 5. Elevated bilirubin: Follow repeat labs in the a.m. 6. Acute kidney injury: On admission creatinine of 1.4. Baseline creatinine 0.9 in 2017. Getting fluids. Avoid nephrotoxic agents. Resolved - current Cr 0.8 DVT prophylaxis: Sequential compression devices, subq heparin Expect to discharge home and follow up w/ orthopedics and PCP Social service to help with discharge planning. Admission and Anticipated Discharge Date Admission Date: October 15, 2020 Subjective Patient seen in follow-up of osteomyelitis, hyperglycemia, uncontrolled diabetes mellitus Postop day 3 status post amputation right great toe/I&D metacarpal phalangeal abscess Currently is lying in bed, no acute distress denies any pain Also denies any fever chills chest pain shortness of breath Pain is currently well controlled Noted temp 37.7C - pt does not feel any different - discussed with ID over the weekend, obtained blood cltx, official consult pending Review of Systems Review of Systems: All systems reviewed & are unremarkable except as noted in HPI & below Constitutional: no chills Respiratory: no cough and no dyspnea Cardiovascular: no chest pain and no palpitations Gastrointestinal: no abdominal pain, no nausea and no vomiting Physical Exam Physical Exam: GENERAL: The patient is obese male, not in acute distress. HEENT: NC/AT, Pupils equal, round, reactive to light. Oral mucosa moist. NECK: No JVD. No neck masses. CARDIOVASCULAR: S1, S2 heard, regular rate and rhythm, no murmur, no gallop. RESPIRATORY : Normal AP diameter. No accessory muscle use. No wheezing, no crackles. ABDOMEN: Soft, bowel sounds present, nontender. No distention. NEURO: Alert and oriented x3, no facial asymmetry, speech fluent,moves extremities EXTREMITIES: s/p amputation right great toe, some erythema and mild drainage noted, packing to be removed by ortho today Results & Data Results & Data ([facility]) Vital Signs (Past 12 Hours) Vital Signs Temp Pulse Resp BP Pulse Ox 10/19/20 22:07 36.9 C 83 16 132/78 98 Laboratory Results 10/20/20 10/20/20 10/20/20 Range/Units 06:59 06:59 06:59 WBC 9.69 (4.8-10.8) K/uL RBC 4.35 L (4.7-6.1) M/uL Hgb 13.0 L (14.0-18.0) g/dL Hct 37.9 L (42-52) % MCV 87.1 (80-100) fL MCH 29.9 (25-34) pg MCHC 34.3 (32-36) g/dL RDW Std Deviation 39.9 (36.4-46.3) fL RDW Coeff of Gracie 12.4 (11.5-14.5) % Plt Count 348 (130-400) K/uL MPV 9.7 (7.4-10.4) fL Sodium 138 (136-145) mmol/L Potassium 3.8 (3.5-5.1) mmol/L Chloride 103 (98-107) mmol/L Carbon Dioxide 27 (21-32) mmol/L Anion Gap 8.0 (3-11) BUN 11 (7-18) mg/dl Creatinine 0.71 (0.6-1.4) mg/dl Est Cr Clr Drug Dosing 132.9 ml/min Est GFR ( Amer) 125.0 ml/min Est GFR (Non-Af Amer) 107.9 ml/min BUN/Creatinine Ratio 15.9 (10-20) Glucose 148 H (70-99) mg/dl POC Glucose (70-99) mg/dl Calcium 8.1 L (8.5-10.1) mg/dl Magnesium 2.0 (1.8-2.4) mg/dl Vancomycin Trough 24.2 (See Comment) mcg/ml 10/19/20 10/19/20 10/19/20 Range/Units 21:00 17:22 12:22 WBC (4.8-10.8) K/uL RBC (4.7-6.1) M/uL Hgb (14.0-18.0) g/dL Hct (42-52) % MCV (80-100) fL MCH (25-34) pg MCHC (32-36) g/dL RDW Std Deviation (36.4-46.3) fL RDW Coeff of Gracie (11.5-14.5) % Plt Count (130-400) K/uL MPV (7.4-10.4) fL Sodium (136-145) mmol/L Potassium (3.5-5.1) mmol/L Chloride (98-107) mmol/L Carbon Dioxide (21-32) mmol/L Anion Gap (3-11) BUN (7-18) mg/dl Creatinine (0.6-1.4) mg/dl Est Cr Clr Drug Dosing ml/min Est GFR ( Amer) ml/min Est GFR (Non-Af Amer) ml/min BUN/Creatinine Ratio (10-20) Glucose (70-99) mg/dl POC Glucose 224 H 161 H 172 H (70-99) mg/dl Calcium (8.5-10.1) mg/dl Magnesium (1.8-2.4) mg/dl Vancomycin Trough (See Comment) mcg/ml 10/19/20 Range/Units 08:16 WBC (4.8-10.8) K/uL RBC (4.7-6.1) M/uL Hgb (14.0-18.0) g/dL Hct (42-52) % MCV (80-100) fL MCH (25-34) pg MCHC (32-36) g/dL RDW Std Deviation (36.4-46.3) fL RDW Coeff of Gracie (11.5-14.5) % Plt Count (130-400) K/uL MPV (7.4-10.4) fL Sodium (136-145) mmol/L Potassium (3.5-5.1) mmol/L Chloride (98-107) mmol/L Carbon Dioxide (21-32) mmol/L Anion Gap (3-11) BUN (7-18) mg/dl Creatinine (0.6-1.4) mg/dl Est Cr Clr Drug Dosing ml/min Est GFR ( Amer) ml/min Est GFR (Non-Af Amer) ml/min BUN/Creatinine Ratio (10-20) Glucose (70-99) mg/dl POC Glucose 193 H (70-99) mg/dl Calcium (8.5-10.1) mg/dl Magnesium (1.8-2.4) mg/dl Vancomycin Trough (See Comment) mcg/ml Medications Administered Current Inpatient Medications Acetaminophen (Acetaminophen 325 Mg Tab) 650 mg PO Q4H PRN PRN Reason: pain/fever Stop: 11/14/20 21:56 Atorvastatin Calcium (Atorvastatin 20 Mg Tab) 20 mg PO DAILY MELE Stop: 11/15/20 08:59 Last Admin: 10/19/20 08:27 Dose: 20 mg Documented by: Bisacodyl (Bisacodyl 10 Mg Supp) 10 mg ID DAILY PRN PRN Reason: Constipation Stop: 11/16/20 17:25 Dextrose (Dextrose 50% 50 Ml Syringe) 25 - 50 ml IV UD PRN; Protocol PRN Reason: Hypoglycemia Protocol Stop: 11/14/20 22:29 Diphenhydramine HCl (Diphenhydramine Capsule 25 Mg Cap) 25 mg PO Q8H PRN PRN Reason: Itching Stop: 11/16/20 17:25 Docusate Sodium (Docusate Sodium 100 Mg Cap) 100 mg PO BID MELE Stop: 11/16/20 20:59 Last Admin: 10/19/20 22:28 Dose: 100 mg Documented by: Glucagon (Glucagon For Inj 1 Mg Vial) 1 mg IM UD PRN; Protocol PRN Reason: Hypoglycemia Protocol Stop: 11/14/20 22:29 Glucose (Glucose 40% Gel 15 Gm Tube) 15 - 30 gm PO UD PRN; Protocol PRN Reason: Hypoglycemia Protocol Stop: 11/14/20 22:29 Glucose (Glucose 10 Tabs/Tube) 4 - 8 tabs PO UD PRN; Protocol PRN Reason: Hypoglycemia Protocol Stop: 11/14/20 22:29 Heparin Sodium (Porcine) (Heparin Sod 5,000 Unit/0.5 Ml Vial) 5,000 units SQ Q12 MELE Stop: 11/17/20 20:59 Last Admin: 10/19/20 22:24 Dose: Not Given Documented by: Hydromorphone HCl (Hydromorphone Inj 0.5 Mg/0.5 Ml Syr) 0.5 mg IV Q2H PRN PRN Reason: Pain or Pre PT Stop: 10/31/20 17:25 Vancomycin HCl 1,500 mg/ (Sodium Chloride) 530 mls @ 200 mls/hr IV Q12H MELE; Protocol Stop: 11/27/20 17:59 Last Admin: 10/20/20 06:40 Dose: 200 mls/hr Documented by: Cefepime HCl 2,000 mg/ Syringe 20 mls @ 5 mls/min IV Q8H MELE; Protocol Stop: 11/28/20 17:59 Last Admin: 10/20/20 02:31 Dose: 5 mls/min Documented by: Insulin Aspart (Insulin Aspart 100 Units/Ml 3 Ml Pen) 0 units SC ACHS [facility] Stop: 11/16/20 20:59 Last Admin: 10/19/20 22:28 Dose: 5 units Documented by: Insulin Glargine (Insulin Glargine Solostar 100 Units/Ml 3 Ml Pen) 0 units SC BID MELE; Protocol Stop: 11/18/20 08:59 Last Admin: 06/13/21 22:28 Dose: 25 units Documented by: Magnesium Hydroxide (Magnesium Hydroxide Susp 30 Ml Udc) 30 ml PO Q6H PRN PRN Reason: Constipation Stop: 11/16/20 17:25 Metoclopramide HCl (Metoclopramide Hcl Inj 5 Mg/Ml 2 Ml Vial) 10 mg IV Q6H PRN PRN Reason: Nausea And Vomiting Stop: 11/16/20 17:25 Miscellaneous (Carbohydrates For Hypoglycemia ) 15 - 30 gm PO UD PRN PRN Reason: Hypoglycemia Treatment Stop: 11/14/20 22:29 Miscellaneous Information (Vancomycin Consult Active) 1 ea N/A UD PRN PRN Reason: Consult Stop: 11/14/20 18:34 Miscellaneous Information (Pharmacy Glycemic Mgmt Consult) 1 ea N/A UD PRN PRN Reason: Consult Stop: 11/15/20 08:05 Multivitamins (Multivitamin Tab) 1 tab PO QAM MELE Stop: 11/17/20 08:59 Last Admin: 10/19/20 08:27 Dose: 1 tab Documented by: Naloxone HCl (Naloxone Hcl 0.4 Mg/1 Ml Vial/Carp) 0.1 mg IV Q5M PRN PRN Reason: Oversedation/Resp Depression Stop: 11/16/20 17:25 Ondansetron HCl (Ondansetron Inj 2 Mg/Ml 2 Ml Vial) 4 mg IV Q6H PRN PRN Reason: Nausea And Vomiting Stop: 11/16/20 17:25 Oxycodone HCl (Oxycodone Hcl Ir 5 Mg Tab (Immediate Release)) 5 - 10 mg PO Q4H PRN PRN Reason: Pain or Pre PT Stop: 10/31/20 17:25 Polyethylene Glycol (Polyethylene (Miralax) 17 Gm Pack) 17 gm PO DAILY PRN PRN Reason: Constipation Stop: 11/14/20 21:56 Sennosides (Senna 8.6 Mg Tab) 17.2 mg PO HS [facility] Stop: 11/16/20 20:59 Last Admin: 10/19/20 22:28 Dose: 17.2 mg Documented by: (1) Diabetic foot ulcer Diabetes mellitus type: other specified (including ANEESH) Diabetic foot ulcer location: toe Laterality: unspecified laterality Non-pressure ulcer stage: unspecified non-pressure ulcer stage Qualified Code(s): E13.621 - Other specified diabetes mellitus with foot ulcer; L97.509 - Non-pressure chronic ulcer of other part of unspecified foot with unspecified severity (2) Osteomyelitis Laterality: unspecified laterality Osteomyelitis location: foot Ost eomyelitis type: other acute Qualified Code(s): M86.179 - Other acute osteomyelitis, unspecified ankle and foot
[2020-10-20] MEDS: HEPARIN SOD 5,000 UNIT/0.5 ML VIAL SQ SCH ×2 (08:17→21:56)
[2020-10-20] MEDS: MULTIVITAMIN TAB PO SCH (08:18)
[2020-10-20] MEDS: DOCUSATE SODIUM 100 MG CAP PO SCH ×2 (08:18→22:00)
[2020-10-20] MEDS: ATORVASTATIN 20 MG TAB PO SCH (08:18)
[2020-10-20] MEDS: INSULIN GLARGINE SOLOSTAR 100 UNITS/ML 3 ML PEN SC SCH ×2 (09:12→22:00)
[2020-10-20] MEDS: INSULIN ASPART 100 UNITS/ML 3 ML PEN SC SCH ×4 (09:12→22:00)
--- NOTE | 2020-10-20 09:18 | Pharmacy Report ---
Pharm Abx/Gly Prg Nt - Date of Service October 20, 2020 - Scope Pharmacy has been consulted to manage vancomycin and glycemic control for this patient as per the Pharmacy & Therapeutics Committee approved dosing protocols. - Objective Vital Signs (Past 12hrs): Vital Signs Temp Pulse Resp BP Pulse Ox 10/20/20 08:02 37.1 C 77 15 160/84 H 98 10/19/20 22:07 36.9 C 83 16 132/78 98 Lab Results: Laboratory Tests (24 Hours) 10/20/20 10/20/20 10/20/20 06:59 06:59 06:59 WBC 9.69 Creatinine 0.71 Est Cr Clr Drug Dosing 132.9 Vancomycin Trough 24.2 Micro Results: 10/19/20 11:58 Aerobic Blood Culture - Pending Blood Anaerobic Blood Culture - Pending 10/19/20 12:10 Aerobic Blood Culture - Pending Blood Anaerobic Blood Culture - Pending 10/15/20 18:44 Gram Stain - Final Foot,Right Wound Culture - Final Group B Beta Strep Svetlana albicans Accuchecks BSG (last 24 hours):: 10/19/20 10/19/20 10/19/20 12:22 17:22 21:00 Glucose POC Glucose 172 H 161 H 224 H 10/20/20 10/20/20 06:59 08:41 Glucose 148 H POC Glucose 156 H HbA1C: Hemoglobin A1c 11.8 % (4.5-5.6) H 10/16/20 06:15 - Outpatient Anti-Diabetic Regimen Recent Pertinent Medications: Outpatient Anti-diabetic Regimen: * N/A The patient is currently receiving: * Basal insulin: Lantus 25 units every 12 hours * Correctional Insulin: Novolog Correction per scale ACHS Goal Range: Low 110 mg/dL - High 140 mg/dL Correction Factor: 20 mg/dL/unit * Prandial insulin: Per carb ratio of 1 unit per 6 grams CHO consumed * Oral Agents: Risk Factors for Insulin Resistance: * Infection: vancomycin and cefepime * Recent Surgery: POD 3 * Diet: T2DM - Assessment & Plan Assessment: ID: * 50 year old M receiving vancomycin for treatment of diabetic foot infection * Day # 11/15? of antimicrobial therapy Glycemic: 10/20/20 * * Patient is currently receiving an average of 72 units of insulin per day * 50 units of basal insulin * 22 units of prandial/correctional insulin * BSGs ranging 161 224 over the past 24hrs * Risk factors for insulin resistance are constant over the past 24hrs * Infection is being adequately treated/Pt status improving * Now POD # 3 s/p surgery * Anticipating insulin regimen will need increased for the next 24hrs d/t : * AM Fasting BSG = 156 therefore Basal insulin will be continued. Patient's regimen is basal heavy currently but PO intake yesterday drastically reduced (eating ~20 grams of carbohydrates compared to ~40 grams per meal the other day). Expect requiring around 45-50 units of basal per day. Equates to weight-based stress of 3. * Total daily dose = 80-90 units/day which equates to 1 unit/kg. Appropriate for recent initiation of insulin. * Post-prandial BSGs are elevated/BSGs rise throughout the day therefore Tighten CR 10/19 * Pt has received 61 units of insulin over the past 24hrs * 30 units of basal with Lantus * 31 units of bolus with NovoLog * BSGs [phone] mg/dl * All BSGs above goal range despite doubling insulin doses yesterday. Will increase both basal and prandial insulin to achieve goal BSGs. * Goal is to maintain BSGs <200 mg/dl (ideally <150 mg/dl) to prevent post op complications * Also, recommend zinc, vitamin C and protein supplementation to promote wound healing in wound care patients Zinc: 50 mg elemental zinc (e.g., 220 mg zinc sulfate) PO three times per day until wound healed. Vitamin C: 500-3000mg/day depending on whether it causes soft stool, then back off Protein: may consult dietary for protein supplement recommendation. Could consider boost glucose control supplement 10/18 * Pt has received 30 units of insulin over the past 24hrs * 23 units of basal with Lantus * 7 units of bolus with NovoLog * BSGs [id number] mg/dl * All BSGs in range with current orders. No changes needed today * Regimen weighted towards basal insulin because pt with low PO intake yesterday secondary to surgery Plan: ANTIMICROBIAL THERAPY Vancomycin * Trough level of 24.2 mcg/mL is supratherapeutic HOWEVER drawn 20 minutes after vancomycin infusion started. * Continue dose of 1500 mg IV every 12 hours * Goal trough level: 15 to 20 mcg/mL * Trough level ordered for: 6/15/21 to obtain actual trough INPATIENT GLYCEMIC CONTROL * Continue to hold outpatient oral diabetes medications Basal Insulin * Lantus 20 units SQ BID (25 units if BSG > 160 mg/dL) Bolus Insulin * NovoLog per scale ACHS or Q6hrs while NPO * Goal Range: Low 110 mg/dL - High 140 mg/dL * Correction Factor: 20 mg/dL/unit * Nutritional / Prandial insulin per carb ratio of 1 unit per 5 grams CHO consumed Glycemic Control Discharge Recommendations: * HbA1c of 11.8% suggests very poor outpatient glycemic control * Goal HbA1c for this patient should be less than 7% * Since A1c is greater than or equal to 10%, should consider triple therapy with metformin + basal insulin + (GLP1-RA OR prandial insulin). * Suggest discontinuing glimepiride if insulin initiated to decrease likelihood of hypoglycemia * Will follow inpatient insulin needs and suggest appropriate dosing closer to time of discharge * Also suggest continuing to titrate metformin dosing upwards as recommended. * Dosage increases should be made in increments of 500 mg weekly, up to 2,000 mg/day PO, given in divided doses. * Suggest switching to XR formulation, as it is generally better tolerated * B12 supplementation may be necessary with intermission coordinator metformin Pharmacy will follow patient and adjust orders on a daily basis. Thank you for allowing us to participate in this patients care.
--- NOTE | 2020-10-20 10:03 | Orthopedic Progress Note ---
Date of Service October 20, 2020 Assessment & Plan (1) Diabetic foot ulcer: Postop day 3 status post amputation right great toe/I&D metacarpal phalangeal abscess PT/OT protocols. Weightbearing on the heel only. DVT prophylaxis-as per medical service. Okay to resume/start anticoags if needed. Continue SCDs. Pain management as written. Antibiotics as per medicine service. Await ID team input. Admission and Anticipated Discharge Date Admission Date: October 15, 2020 Subjective Postop day 3 Patient lying in bed this morning awake and alert. Dr. Dhillon is present and going over his care. She discussed that she is consult infectious disease team from [facility] who will be videoconferencing with the patient at 11:30 AM this morning. She states the patient has been having low-grade temps off and on. Blood cultures have been ordered. Patient states that he is feeling well and has no complaints. Pain is controlled. Physical Exam Physical Exam: Dressings removed. Mild to moderate drainage noted on the dressings themselves. No overt purulence noted. Wound is well approximated. Some noted eschars forming around the distal aspect of the wound itself. His erythema continues to improve as does his swelling. Remainder of packing removed from the dorsum of the foot. No purulence noted. On palpation, I cannot express any further drainage from the wound at this time. Wounds redressed. Results & Data ([facility]) Vital Signs (Past 12 Hours) Vital Signs Temp Pulse Resp BP Pulse Ox 10/20/20 08:02 37.1 C 77 15 160/84 H 98 10/19/20 22:07 36.9 C 83 16 132/78 98 (1) Diabetic foot ulcer Diabetes mellitus type: other specified (including ANEESH) Diabetic foot ulcer location: toe Laterality: unspecified laterality Non-pressure ulcer stage: unspecified non-pressure ulcer stage Qualified Code(s): E13.621 - Other specified diabetes mellitus with foot ulcer; L97.509 - Non-pressure chronic ulcer of other part of unspecified foot with unspecified severity
[2020-10-20] MEDS: SENNA 8.6 MG TAB PO SCH (22:00)
[2020-10-21] MEDS: CEFEPIME 2,000 MG in SYRINGE 0 ML IV SCH ×2 (03:09→08:49)
[2020-10-21] MEDS ORDERED: VANCOMYCIN TROUGH ONE (05:30)
[2020-10-21 05:49] LABS: Hematocrit (blood only) 36.1 % (42-52); Hemoglobin 12.4 g/dL (14.0-18.0); Mean Corpuscular Hemoglobin 29.9 pg (25-34); Mean Corpuscular Hgb Conc 34.3 g/dL (32-36); Mean Platelet Volume 9.5 fL (7.4-10.4); Platelet Count 367 K/uL (130-400); RDW Coefficient of Variation 12.4 % (11.5-14.5); RDW Standard Deviation 39.8 fL (36.4-46.3); Red Blood Count 4.15 M/uL (4.7-6.1); White Blood Count 12.04 K/uL (4.8-10.8)
[2020-10-21] MEDS: VANCOMYCIN HCL 1,500 MG in SODIUM CHLORIDE 0.9% 500 ML IV SCH (06:05)
[2020-10-21 06:21] LABS: BUN Creatinine Ratio 22.2 (10-20); Creatinine Clr Calc Pharmacy 157.3 ml/min; Est GFR (Non-African American) 115.6 ml/min; Potassium 3.7 mmol/L (3.5-5.1)
[2020-10-21] MEDS: DOCUSATE SODIUM 100 MG CAP PO SCH ×2 (07:57→22:16)
[2020-10-21] MEDS: MULTIVITAMIN TAB PO SCH (07:57)
[2020-10-21] MEDS: ATORVASTATIN 20 MG TAB PO SCH (07:57)
[2020-10-21] MEDS: HEPARIN SOD 5,000 UNIT/0.5 ML VIAL SQ SCH ×2 (08:45→22:08)
[2020-10-21] MEDS: INSULIN GLARGINE SOLOSTAR 100 UNITS/ML 3 ML PEN SC SCH ×2 (08:47→22:16)
[2020-10-21] MEDS: INSULIN ASPART 100 UNITS/ML 3 ML PEN SC SCH ×4 (08:47→22:16)
--- NOTE | 2020-10-21 09:41 | Hospitalist Progress Note ---
Date of Service October 21, 2020 Assessment & Plan (1) Osteomyelitis: (2) Diabetic foot ulcer: (3) Diabetes mellitus: This is a 50-year-old male with a history of diabetes, who presents with right great toe osteomyelitis. 1. Right great toe osteomyelitis and diabetic foot ulcer: Empirically started on vancomycin and meropenem as the patient is allergic to penicillins. Wound care and ortho consult. Gentle fluids and monitor in the medical floor. Orthopedics evaluated patient, MRI of right foot ordered - IMPRESSION: 1. Plantar soft tissue ulceration at the level the great toe 2. MRI evidence of osteomyelitis involving the proximal distal phalanges of the great toe 3. Suspected gas within the soft tissues 4. Diffuse edema within the foot musculature consistent with a myositis. 5. Area of decreased enhancement within the flexor pollicis brevis, possibly secondary to an area of myonecrosis 6. Pathologic fracture involving the distal phalanx the great toe Now s/p amputation right great toe/I&D metacarpal phalangeal abscess (10/17), w/ Dr. Rodas. Adjusted antibiotics with pharmacy - since the patient did not have any reaction to cefepime that he received in the ED, switched to Vanco and cefepime. Wound culture positive for group B strep. Ideally would obtain culture in the OR ->Unfortunately no cultx from OR Temp 37.7C - will repeat blood cultx (10/19) Per ortho - 10 day course of Abx d/t presence of abscess ID also consulted Recommend to switch to IV ceftriaxone 2 g daily and p.o. metronidazole 500 every 8 hours. Length of treatment will depend on orthopedics. If residual osteomyelitis is believed to still be present, then 6 weeks of therapy are indicated. If osteomyelitis is not present, length of treatment would be about 2 weeks. 2. Diabetes mellitus type II, uncontrolled: Continue globin A1c 11.8% Hold his glimepiride and metformin. Blood sugars elevated on admission -Received a dose of 6 units of insulin in the ER. We will follow his blood sugars. Placed him on Lantus 5 units b.i.d., insulin sliding scale. Glycemic pharmacy consulted. 3. hyperlipidemia: Continue statin. 4. Obesity: Needs counseling. 5. Elevated bilirubin: Follow repeat labs in the a.m. 6. Acute kidney injury: On admission creatinine of 1.4. Baseline creatinine 0.9 in 2017. Getting fluids. Avoid nephrotoxic agents. Resolved - current Cr 0.8 DVT prophylaxis: Sequential compression devices, subq heparin Expect to discharge home and follow up w/ orthopedics and PCP Social service to help with discharge planning. Admission and Anticipated Discharge Date Admission Date: October 15, 2020 Subjective Patient seen in follow-up of osteomyelitis, hyperglycemia, uncontrolled diabetes mellitus Now status post amputation right great toe/I&D metacarpal phalangeal abscess Currently is lying in bed, no acute distress denies any pain Also denies any fever chills chest pain shortness of breath Pain is currently well controlled ID consulted Review of Systems Review of Systems: All systems reviewed & are unremarkable except as noted in HPI & below Constitutional: no fever and no chills Respiratory: no cough and no dyspnea Cardiovascular: no chest pain and no palpitations Gastrointestinal: no abdominal pain, no nausea and no vomiting Physical Exam Physical Exam: GENERAL: The patient is obese male, not in acute distress. HEENT: NC/AT, Pupils equal, round, reactive to light. Oral mucosa moist. NECK: No JVD. No neck masses. CARDIOVASCULAR: S1, S2 heard, regular rate and rhythm, no murmur, no gallop. RESPIRATORY : Normal AP diameter. No accessory muscle use. No wheezing, no crackles. ABDOMEN: Soft, bowel sounds present, nontender. No distention. NEURO: Alert and oriented x3, no facial asymmetry, speech fluent,moves extremities EXTREMITIES: s/p amputation right great toe, some erythema and mild drainage noted, packing removed by ortho yesterday Results & Data Results & Data ([facility]) Vital Signs (Past 12 Hours) Vital Signs Temp Pulse Pulse Resp BP Pulse Ox 10/21/20 07:20 37.2 C 75 18 155/84 H 97 10/20/20 22:12 37.0 C 79 16 145/81 H 95 Laboratory Results 10/21/20 10/21/20 10/21/20 Range/Units 08:33 05:30 05:30 WBC 12.04 H (4.8-10.8) K/uL RBC 4.15 L (4.7-6.1) M/uL Hgb 12.4 L (14.0-18.0) g/dL Hct 36.1 L (42-52) % MCV 87.0 (80-100) fL MCH 29.9 (25-34) pg MCHC 34.3 (32-36) g/dL RDW Std Deviation 39.8 (36.4-46.3) fL RDW Coeff of Gracie 12.4 (11.5-14.5) % Plt Count 367 (130-400) K/uL MPV 9.5 (7.4-10.4) fL Sodium (136-145) mmol/L Potassium (3.5-5.1) mmol/L Chloride (98-107) mmol/L Carbon Dioxide (21-32) mmol/L Anion Gap (3-11) BUN (7-18) mg/dl Creatinine (0.6-1.4) mg/dl Est Cr Clr Drug Dosing ml/min Est GFR ( Amer) ml/min Est GFR (Non-Af Amer) ml/min BUN/Creatinine Ratio (10-20) Glucose (70-99) mg/dl POC Glucose 105 H (70-99) mg/dl Calcium (8.5-10.1) mg/dl Vancomycin Trough 15.7 (See Comment) mcg/ml 10/21/20 10/20/20 10/20/20 Range/Units 05:30 20:33 16:59 WBC (4.8-10.8) K/uL RBC (4.7-6.1) M/uL Hgb (14.0-18.0) g/dL Hct (42-52) % MCV (80-100) fL MCH (25-34) pg MCHC (32-36) g/dL RDW Std Deviation (36.4-46.3) fL RDW Coeff of Gracie (11.5-14.5) % Plt Count (130-400) K/uL MPV (7.4-10.4) fL Sodium 137 (136-145) mmol/L Potassium 3.7 (3.5-5.1) mmol/L Chloride 104 (98-107) mmol/L Carbon Dioxide 28 (21-32) mmol/L Anion Gap 5.0 (3-11) BUN 13 (7-18) mg/dl Creatinine 0.60 (0.6-1.4) mg/dl Est Cr Clr Drug Dosing 157.3 ml/min Est GFR ( Amer) 134.0 ml/min Est GFR (Non-Af Amer) 115.6 ml/min BUN/Creatinine Ratio 22.2 H (10-20) Glucose 105 H (70-99) mg/dl POC Glucose 176 H 191 H (70-99) mg/dl Calcium 8.0 L (8.5-10.1) mg/dl Vancomycin Trough (See Comment) mcg/ml 10/20/20 Range/Units 12:34 WBC (4.8-10.8) K/uL RBC (4.7-6.1) M/uL Hgb (14.0-18.0) g/dL Hct (42-52) % MCV (80-100) fL MCH (25-34) pg MCHC (32-36) g/dL RDW Std Deviation (36.4-46.3) fL RDW Coeff of Gracie (11.5-14.5) % Plt Count (130-400) K/uL MPV (7.4-10.4) fL Sodium (136-145) mmol/L Potassium (3.5-5.1) mmol/L Chloride (98-107) mmol/L Carbon Dioxide (21-32) mmol/L Anion Gap (3-11) BUN (7-18) mg/dl Creatinine (0.6-1.4) mg/dl Est Cr Clr Drug Dosing ml/min Est GFR ( Amer) ml/min Est GFR (Non-Af Amer) ml/min BUN/Creatinine Ratio (10-20) Glucose (70-99) mg/dl POC Glucose 165 H (70-99) mg/dl Calcium (8.5-10.1) mg/dl Vancomycin Trough (See Comment) mcg/ml Medications Administered Current Inpatient Medications Acetaminophen (Acetaminophen 325 Mg Tab) 650 mg PO Q4H PRN PRN Reason: pain/fever Stop: 11/14/20 21:56 Atorvastatin Calcium (Atorvastatin 20 Mg Tab) 20 mg PO DAILY MELE Stop: 11/15/20 08:59 Last Admin: 10/21/20 07:57 Dose: 20 mg Documented by: Bisacodyl (Bisacodyl 10 Mg Supp) 10 mg OK DAILY PRN PRN Reason: Constipation Stop: 11/16/20 17:25 Dextrose (Dextrose 50% 50 Ml Syringe) 25 - 50 ml IV UD PRN; Protocol PRN Reason: Hypoglycemia Protocol Stop: 11/14/20 22:29 Diphenhydramine HCl (Diphenhydramine Capsule 25 Mg Cap) 25 mg PO Q8H PRN PRN Reason: Itching Stop: 11/16/20 17:25 Docusate Sodium (Docusate Sodium 100 Mg Cap) 100 mg PO BID ON LICENSE OF [facility] Stop: 11/16/20 20:59 Last Admin: 10/21/20 07:57 Dose: 100 mg Documented by: Glucagon (Glucagon For Inj 1 Mg Vial) 1 mg IM UD PRN; Protocol PRN Reason: Hypoglycemia Protocol Stop: 11/14/20 22:29 Glucose (Glucose 40% Gel 15 Gm Tube) 15 - 30 gm PO UD PRN; Protocol PRN Reason: Hypoglycemia Protocol Stop: 11/14/20 22:29 Glucose (Glucose 10 Tabs/Tube) 4 - 8 tabs PO UD PRN; Protocol PRN Reason: Hypoglycemia Protocol Stop: 11/14/20 22:29 Heparin Sodium (Porcine) (Heparin Sod 5,000 Unit/0.5 Ml Vial) 5,000 units SQ Q12 MELE Stop: 11/17/20 20:59 Last Admin: 10/21/20 08:45 Dose: Not Given Documented by: Hydromorphone HCl (Hydromorphone Inj 0.5 Mg/0.5 Ml Syr) 0.5 mg IV Q2H PRN PRN Reason: Pain or Pre PT Stop: 10/31/20 17:25 Vancomycin HCl 1,500 mg/ (Sodium Chloride) 530 mls @ 200 mls/hr IV Q12H MELE; Protocol Stop: 11/27/20 17:59 Last Infusion: 10/21/20 08:52 Dose: Infused Documented by: Cefepime HCl 2,000 mg/ Syringe 20 mls @ 5 mls/min IV Q8H MELE; Protocol Stop: 11/28/20 17:59 Last Admin: 10/21/20 08:49 Dose: 5 mls/min Documented by: Insulin Aspart (Insulin Aspart 100 Units/Ml 3 Ml Pen) 0 units SC ACHS ON LICENSE OF [facility] Stop: 11/16/20 20:59 Last Admin: 10/21/20 08:47 Dose: 6 units Documented by: Insulin Glargine (Insulin Glargine Solostar 100 Units/Ml 3 Ml Pen) 0 units SC BID MELE; Protocol Stop: 11/18/20 08:59 Last Admin: 10/21/20 08:47 Dose: 20 units Documented by: Magnesium Hydroxide (Magnesium Hydroxide Susp 30 Ml Udc) 30 ml PO Q6H PRN PRN Reason: Constipation Stop: 11/16/20 17:25 Metoclopramide HCl (Metoclopramide Hcl Inj 5 Mg/Ml 2 Ml Vial) 10 mg IV Q6H PRN PRN Reason: Nausea And Vomiting Stop: 11/16/20 17:25 Miscellaneous (Carbohydrates For Hypoglycemia ) 15 - 30 gm PO UD PRN PRN Reason: Hypoglycemia Treatment Stop: 11/14/20 22:29 Miscellaneous Information (Vancomycin Consult Active) 1 ea N/A UD PRN PRN Reason: Consult Stop: 11/14/20 18:34 Miscellaneous Information (Pharmacy Glycemic Mgmt Consult) 1 ea N/A UD PRN PRN Reason: Consult Stop: 11/15/20 08:05 Multivitamins (Multivitamin Tab) 1 tab PO QAM MELE Stop: 11/17/20 08:59 Last Admin: 10/21/20 07:57 Dose: 1 tab Documented by: Naloxone HCl (Naloxone Hcl 0.4 Mg/1 Ml Vial/Carp) 0.1 mg IV Q5M PRN PRN Reason: Oversedation/Resp Depression Stop: 11/16/20 17:25 Ondansetron HCl (Ondansetron Inj 2 Mg/Ml 2 Ml Vial) 4 mg IV Q6H PRN PRN Reason: Nausea And Vomiting Stop: 11/16/20 17:25 Oxycodone HCl (Oxycodone Hcl Ir 5 Mg Tab (Immediate Release)) 5 - 10 mg PO Q4H PRN PRN Reason: Pain or Pre PT Stop: 10/31/20 17:25 Polyethylene Glycol (Polyethylene (Miralax) 17 Gm Pack) 17 gm PO DAILY PRN PRN Reason: Constipation Stop: 11/14/20 21:56 Sennosides (Senna 8.6 Mg Tab) 17.2 mg PO HS MELE Stop: 11/16/20 20:59 Last Admin: 10/20/20 22:00 Dose: 17.2 mg Documented by: (1) Diabetic foot ulcer Diabetes mellitus type: other specified (including ANEESH) Diabetic foot ulcer location: toe Laterality: unspecified laterality Non-pressure ulcer stage: unspecified non-pressure ulcer stage Qualified Code(s): E13.621 - Other specified diabetes mellitus with foot ulcer; L97.509 - Non-pressure chronic ulcer of other part of unspecified foot with unspecified severity (2) Osteomyelitis Laterality: unspecified laterality Osteomyelitis location: foot Osteomyelitis type: other acute Qualified Code(s): M86.179 - Other acute oste omyelitis, unspecified ankle and foot
[2020-10-21] MEDS ORDERED: POTASSIUM CHLORIDE CRTAB 20 MEQ TABCR PO STA (09:58)
[2020-10-21] MEDS: metroNIDAZOLE 500 MG TAB PO SCH ×2 (13:39→22:17)
--- NOTE | 2020-10-21 13:51 | Pharmacy Report ---
Pharmacy Glycemic Short Note 2 - Date of Service October 21, 2020 - Glycemic Short BSG Results (Last 24 hours): 10/20/20 10/20/20 10/21/20 16:59 20:33 05:30 Glucose 105 H POC Glucose 191 H 176 H 10/21/20 10/21/20 08:33 12:29 Glucose POC Glucose 105 H 149 H OUTPATIENT ANTIDIABETIC REGIMEN: * Metformin 500 mg PO BIDM * Glimepiride 2 mg PO daily * HbA1c: 11.8% (10/16/20) ASSESSMENT: 10/21: * Patient well controlled over the past 24 hours, receiving 68 total units of insulin (45 basal, 23 bolus) * Fasting BSG downtrended again today. Will decrease total basal insulin by ~10- 20% * Postprandial BSGs improved continue current novolog scale. Patient is tolerating a diet. 10/19 * Pt has received 61 units of insulin over the past 24hrs * 30 units of basal with Lantus * 31 units of bolus with NovoLog * BSGs [phone] mg/dl * All BSGs above goal range despite doubling insulin doses yesterday. Will increase both basal and prandial insulin to achieve goal BSGs. * Goal is to maintain BSGs <200 mg/dl (ideally <150 mg/dl) to prevent post op complications * Also, recommend zinc, vitamin C and protein supplementation to promote wound healing in wound care patients Zinc: 50 mg elemental zinc (e.g., 220 mg zinc sulfate) PO three times per day until wound healed. Vitamin C: 500-3000mg/day depending on whether it causes soft stool, then back off Protein: may consult dietary for protein supplement recommendation. Could consider boost glucose control supplement 10/18 * Pt has received 30 units of insulin over the past 24hrs * 23 units of basal with Lantus * 7 units of bolus with NovoLog * BSGs [phone] mg/dl * All BSGs in range with current orders. No changes needed today * Regimen weighted towards basal insulin because pt with low PO intake yesterday secondary to surgery 10/17: * BSGs yesterday of 229, 206, 195, and 172 mg/dL * NPO today for OR - possible I&D vs. amputation of right great toe * Fasting BSG of 158 mg/dL - will likely maintain current Lantus dosing * Antibiotics changed to vancomycin and cefepime 10/16: * DES is a 50 year old male admitted last evening for IV antibiotic treatment of diabetic foot ulcer and possible osteomyelitis * BSGs elevated last evening, 326 mg/dL on admission * Received 6 units IV insulin, 12 units of SC bolus, and 5 units of Lantus * Fasting BSG of 229 mg/dL this morning - pharmacy consulted for glycemic management at that time * Initially NPO for possible surgical intervention, ordered diet at lunchtime * BSG of 206 at lunchtime was obtained postprandially - will cover carbs only PLAN FOR INPATIENT GLYCEMIC CONTROL: * Hold outpatient oral diabetes medications * Basal insulin * Lantus scale to provide 15 or 20 units SC BID (see EHR for details) * Bolus insulin * NovoLog per scale ACHS or Q6hrs while NPO * Goal Range: Low 110 mg/dL - High 140 mg/dL * Correction Factor: 20 mg/dL/unit * Nutritional / Prandial insulin per carb ratio of 1 unit per 6 grams CHO consumed PLAN FOR DISCHARGE: * HbA1c of 11.8% suggests very poor outpatient glycemic control * Goal HbA1c for this patient should be less than 7% * Since A1c is greater than or equal to 10%, should consider triple therapy with metformin + basal insulin + (GLP1-RA OR prandial insulin). * Suggest discontinuing glimepiride if insulin initiated to decrease likelihood of hypoglycemia * Will follow inpatient insulin needs and suggest appropriate dosing closer to time of discharge * Also suggest continuing to titrate metformin dosing upwards as recommended. * Dosage increases should be made in increments of 500 mg weekly, up to 2,000 mg/day PO, given in divided doses. * Suggest switching to XR formulation, as it is generally better tolerated * B12 supplementation may be necessary with termination clerk metformin
--- NOTE | 2020-10-21 14:22 | Orthopedic Progress Note ---
Date of Service October 21, 2020 Assessment & Plan (1) Diabetic foot ulcer: Postop day 4 status post amputation right great toe/I&D metacarpal phalangeal abscess PT/OT protocols. Weightbearing on the heel only. DVT prophylaxis-as per medical service. Okay to resume/start anticoags if needed. Continue SCDs. Pain management as written. Antibiotics as per medicine service. Antibx changed to Rocephin and Flagyl. Will discuss wound with Dr. Rodas. Admission and Anticipated Discharge Date Admission Date: October 15, 2020 Subjective POD 4 Pt lying in bed. Awake, alert. No new complaints. Pain controlled. Pt spoke to ID team yesterday. Antibx changed. Physical Exam Physical Exam: Dressing removed. Drainage on the deeper section of dior wrap and on kerlix. Mostly noted over the distal incision area. Erythema continues to resolve over the foot. Some darker erythema remains at the 1st metatarsal region with swelling noted. No foul odor. Suture line intact. Soft. A very small area of likely purulent vs slough noted at the distal tip. I cannot express any fluid from the area. Redressed. Results & Data ([facility]) Vital Signs (Past 12 Hours) Vital Signs Temp Pulse Resp BP Pulse Ox 10/21/20 07:20 37.2 C 75 18 155/84 H 97 (1) Diabetic foot ulcer Diabetes mellitus type: other specified (including ANEESH) Diabetic foot ulcer location: toe Laterality: unspecified laterality Non-pressure ulcer stage: unspecified non-pressure ulcer stage Qualified Code(s): E13.621 - Other specified diabetes mellitus with foot ulcer; L97.509 - Non-pressure chronic ulcer of other part of unspecified foot with unspecified severity
[2020-10-21] MEDS: ADVANCED PROBIOTIC 1250 MG CAPSULE PO SCH (17:50)
[2020-10-21] MEDS: cefTRIAXone SODIUM 2,000 MG in DEXTROSE 5% 50 ML IV SCH (17:59)
[2020-10-21] MEDS: SENNA 8.6 MG TAB PO SCH (22:17)
[2020-10-22 06:16] LABS: Hematocrit (blood only) 36.6 % (42-52); Hemoglobin 12.6 g/dL (14.0-18.0); Mean Corpuscular Hgb Conc 34.4 g/dL (32-36); Mean Corpuscular Volume 87.1 fL (80-100); Mean Platelet Volume 9.5 fL (7.4-10.4); Nucleated RBC # (auto) 0.04 K/uL (0-0); Nucleated RBC % (auto) 0.3 %; Platelet Count 383 K/uL (130-400); RDW Coefficient of Variation 12.4 % (11.5-14.5); RDW Standard Deviation 39.6 fL (36.4-46.3); White Blood Count 11.38 K/uL (4.8-10.8)
[2020-10-22 06:38] LABS: BUN Creatinine Ratio 15.2 (10-20); Calcium 8.4 mg/dl (8.5-10.1); Creatinine Clr Calc Pharmacy 124.2 ml/min; Est GFR (African American) 121.6 ml/min; Est GFR (Non-African American) 104.9 ml/min; Potassium 3.9 mmol/L (3.5-5.1)
[2020-10-22] MEDS: ATORVASTATIN 20 MG TAB PO SCH (09:29)
[2020-10-22] MEDS: MULTIVITAMIN TAB PO SCH (09:29)
[2020-10-22] MEDS: metroNIDAZOLE 500 MG TAB PO SCH ×3 (09:29→20:05)
[2020-10-22] MEDS: ADVANCED PROBIOTIC 1250 MG CAPSULE PO SCH (09:29)
[2020-10-22] MEDS: DOCUSATE SODIUM 100 MG CAP PO SCH ×2 (09:29→20:04)
[2020-10-22] MEDS: HEPARIN SOD 5,000 UNIT/0.5 ML VIAL SQ SCH ×3 (09:30→20:04)
[2020-10-22] MEDS: INSULIN GLARGINE SOLOSTAR 100 UNITS/ML 3 ML PEN SC SCH ×2 (09:30→21:29)
[2020-10-22] MEDS: INSULIN ASPART 100 UNITS/ML 3 ML PEN SC SCH ×4 (09:33→21:27)
--- NOTE | 2020-10-22 10:39 | Pharmacy Report ---
Pharmacy Glycemic Short Note 2 - Date of Service October 22, 2020 - Glycemic Short BSG Results (Last 24 hours): 10/21/20 10/21/20 10/21/20 12:29 17:01 20:26 Glucose POC Glucose 149 H 183 H 184 H 10/22/20 10/22/20 05:48 08:13 Glucose 152 H POC Glucose 111 H OUTPATIENT ANTIDIABETIC REGIMEN: * Metformin 500 mg PO BIDM * Glimepiride 2 mg PO daily * HbA1c: 11.8% (10/16/20) ASSESSMENT: 10/22: * Patient's BSG yesterday 105, 149, 183, 184 mg/dL. * Patient received 69 units of insulin yesterday, 40 basal, 29 bolus * Will tighten novolog scale today looking at trend of higher post prandials at dinner and HS. CR may need to be tightened as well. * Continue current lantus scale. Patient requiring ~ 35-45 units of lantus a day. 10/21: * Patient well controlled over the past 24 hours, receiving 68 total units of insulin (45 basal, 23 bolus) * Fasting BSG downtrended again today. Will decrease total basal insulin by ~10- 20% * Postprandial BSGs improved continue current novolog scale. Patient is t olerating a diet. 10/19 * Pt has received 61 units of insulin over the past 24hrs * 30 units of basal with Lantus * 31 units of bolus with NovoLog * BSGs [phone] mg/dl * All BSGs above goal range despite doubling insulin doses yesterday. Will increase both basal and prandial insulin to achieve goal BSGs. * Goal is to maintain BSGs <200 mg/dl (ideally <150 mg/dl) to prevent post op complications * Also, recommend zinc, vitamin C and protein supplementation to promote wound healing in wound care patients Zinc: 50 mg elemental zinc (e.g., 220 mg zinc sulfate) PO three times per day until wound healed. Vitamin C: 500-3000mg/day depending on whether it causes soft stool, then back off Protein: may consult dietary for protein supplement recommendation. Could consider boost glucose control supplement 10/18 * Pt has received 30 units of insulin over the past 24hrs * 23 units of basal with Lantus * 7 units of bolus with NovoLog * BSGs [phone] mg/dl * All BSGs in range with current orders. No changes needed today * Regimen weighted towards basal insulin because pt with low PO intake yesterday secondary to surgery 10/17: * BSGs yesterday of 229, 206, 195, and 172 mg/dL * NPO today for OR - possible I&D vs. amputation of right great toe * Fasting BSG of 158 mg/dL - will likely maintain current Lantus dosing * Antibiotics changed to vancomycin and cefepime 10/16: * DES is a 50 year old male admitted last evening for IV antibiotic treatment of diabetic foot ulcer and possible osteomyelitis * BSGs elevated last evening, 326 mg/dL on admission * Received 6 units IV insulin, 12 units of SC bolus, and 5 units of Lantus * Fasting BSG of 229 mg/dL this morning - pharmacy consulted for glycemic management at that time * Initially NPO for possible surgical intervention, ordered diet at lunchtime * BSG of 206 at lunchtime was obtained postprandially - will cover carbs only PLAN FOR INPATIENT GLYCEMIC CONTROL: * Hold outpatient oral diabetes medications * Basal insulin * Lantus scale to provide 15 or 20 or 25 units SC BID (see EHR for details) * Bolus insulin * NovoLog per scale ACHS or Q6hrs while NPO * Goal Range: Low 110 mg/dL - High 140 mg/dL * Correction Factor: 15 mg/dL/unit * Nutritional / Prandial insulin per carb ratio of 1 unit per 5 grams CHO consumed PLAN FOR DISCHARGE: * HbA1c of 11.8% suggests very poor outpatient glycemic control * Goal HbA1c for this patient should be less than 7% * Since A1c is greater than or equal to 10%, should consider triple therapy with metformin + basal insulin + (GLP1-RA OR prandial insulin). * Suggest discontinuing glimepiride if insulin initiated to decrease likelihood of hypoglycemia * Will follow inpatient insulin needs and suggest appropriate dosing closer to time of discharge * Also suggest continuing to titrate metformin dosing upwards as recommended. * Dosage increases should be made in increments of 500 mg weekly, up to 2,000 mg/day PO, given in divided doses. * Suggest switching to XR formulation, as it is generally better tolerated * B12 supplementation may be necessary with intermediate metformin
--- NOTE | 2020-10-22 14:51 | Orthopedic Progress Note ---
Date of Service October 22, 2020 Assessment & Plan (1) Diabetic foot ulcer: Postop day 4 status post amputation right great toe/I&D metacarpal phalangeal abscess Daily dressing changes PT/OT protocols. Patient listed as nonweightbearing per original orders. Okay to put heel down for balance. DVT prophylaxis-as per medical service. Okay to resume/start anticoags if needed. Continue SCDs. Pain management as written. Antibiotics as per medicine service. Antibx changed to Rocephin and Flagyl. Will discuss wound with Dr. Rodas. No further surgery at this time. Orthopedics will sign off. Please call with any questions. Instructions placed in the discharge instructions section. Admission and Anticipated Discharge Date Admission Date: October 15, 2020 Subjective Postop day 5 Patient sitting in his chair at the bedside. No complaints today. Remaining comfortable. Denies pain. Physical Exam Physical Exam: Dressings removed. Much less drainage noted on the dressing today. The wound itself is looking better today. No overt purulence noted. No odor. The grayish areas around the wound edges at the distal portion are looking better today. Continues to have less erythema. Wound redressed with Aquacel Ag over the distal portion of the incision, 4 x 4's, Kerlix wrap and Justin wrap. Results & Data ([facility]) Vital Signs (Past 12 Hours) Vital Signs Temp Pulse Resp BP Pulse Ox 10/22/20 07:10 36.8 C 78 18 149/87 H 97 (1) Diabetic foot ulcer Diabetes mellitus type: other specified (including ANEESH) Diabetic foot ulcer location: toe Laterality: unspecified laterality Non-pressure ulcer stage: unspecified non-pressure ulcer stage Qualified Code(s): E13.621 - Other specified diabetes mellitus with foot ulcer; L97.509 - Non-pressure chronic ulcer of other part of unspecified foot with unspecified severity
[2020-10-22] MEDS: cefTRIAXone SODIUM 2,000 MG in DEXTROSE 5% 50 ML IV SCH (17:46)
--- NOTE | 2020-10-22 19:17 | Hospitalist Progress Note ---
Date of Service October 22, 2020 Assessment & Plan (1) Osteomyelitis: (2) Diabetic foot ulcer: (3) Diabetes mellitus: Patient is a 50 yr male with H/O diabetes, who presents with right great toe osteomyelitis. Right great toe osteomyelitis Diabetic foot ulcer -MRI R foot: Plantar soft tissue ulceration at the level the great toe. MRI evidence of osteomyelitis involving the proximal distal phalanges of the great toe. Suspected gas within the soft tissues. Diffuse edema within the foot mu sculature consistent with a myositis. Area of decreased enhancement within the flexor pollicis brevis, possibly secondary to an area of myonecrosis. Pathologic fracture involving the distal phalanx the great toe -S/P Right great toe amputation. Resection of flexor hallucis longus septic tendon. Tenosynovectomy of extensor hallucis longus tendon. Incision and drainage of abscess, first intermetatarsal space of the foot. Debridement of necrotic muscle, first intermetatarsal space. ON 10/18/[address]Barter Maloney foot Wound: B beta strep, Svetlana -Blood Cx: No growth -Empirically on vancomycin, meropenem>> transition to Rocephin, Flagyl -Appreciate ID/Ortho Input -Duration f Abx as per Ortho DM II uncontrolled Hb A1c 11.8% Hold glimepiride and metformin. Continue Insulin therapy Glycemic pharmacy consulted. Needs to be discharge don Insulin Hyperlipidemia: Continue statin Acute kidney injury: Cr back to baseline Monitor renal function Avoid nephrotoxic agents DVT Px: Heparin SQ Admission and Anticipated Discharge Date Admission Date: October 15, 2020 Subjective Patient is seen and examined bedside Denies any right foot pain Offers no complaints today Denies chest pain dyspnea, dizziness, nausea, abdominal pain Offers no complaints Review of Systems Review of Systems: All systems reviewed & are unremarkable except as noted in HPI & below Physical Exam Physical Exam: Physical Exam: Vitals signs as noted above General Appearance:Moderately built and nourished, no apparent distress Head: normocephalic, Atraumatic Eyes: normal inspection, EOMI Neck: supple, Trachea midline Respiratory/Chest: Normal breath sounds, CTA Cardiovascular: S1, S2, No murmur Abdomen/GI:Soft, Non tender, Bowel sounds present Extremities/Musculoskeletal:normal inspection, R foot in dressing Neurologic/Psych:AAOX3, grossly no focal neurological deficits Skin: normal color, warm Results & Data Results & Data ([facility]) Vital Signs (Past 12 Hours) Vital Signs Temp Pulse Pulse Resp BP Pulse Ox 10/22/20 15:38 37.0 C 83 22 111/71 96 10/22/20 07:10 36.8 C 78 18 149/87 H 97 Laboratory Results Short CBC 10/22/20 Range/Units 05:48 WBC 11.38 H (4.8-10.8) K/uL Hgb 12.6 L (14.0-18.0) g/dL Hct 36.6 L (42-52) % Plt Count 383 (130-400) K/uL BMP 10/22/20 05:48 Sodium 136 Potassium 3.9 Chloride 103 Carbon Dioxide 27 BUN 12 Creatinine 0.76 Glucose 152 H Calcium 8.4 L (1) Osteomyelitis Laterality: unspecified laterality Osteomyelitis location: foot Osteomyelitis type: other acute Qualified Code(s): M86.179 - Other acute osteomyelitis, unspecified ankle and foot (2) Diabetic foot ulcer Diabetes mellitus type: other specified (including ANEESH) Diabetic foot ulcer location: toe Laterality: unspecified laterality Non-pressure ulcer stage: unspecified non-pressure ulcer stage Qualified Code(s): E13.621 - Other specified diabetes mellitus with foot ulcer; L97.509 - Non-pressure chronic ulcer of other part of unspecified foot with unspecified severity
[2020-10-22] MEDS: SENNA 8.6 MG TAB PO SCH (20:04)
[2020-10-23 06:25] LABS: Hematocrit (blood only) 38.4 % (42-52); Hemoglobin 12.7 g/dL (14.0-18.0); Mean Corpuscular Hemoglobin 29.7 pg (25-34); Mean Corpuscular Hgb Conc 33.1 g/dL (32-36); Mean Corpuscular Volume 89.7 fL (80-100); Mean Platelet Volume 9.4 fL (7.4-10.4); Platelet Count 418 K/uL (130-400); RDW Coefficient of Variation 12.5 % (11.5-14.5); RDW Standard Deviation 40.6 fL (36.4-46.3); Red Blood Count 4.28 M/uL (4.7-6.1); White Blood Count 12.02 K/uL (4.8-10.8)
[2020-10-23 06:59] LABS: Basophils # (auto) 0.07 K/uL (0-0.2); Basophils % (auto) 0.6 %; Eosinophils # (auto) 0.37 K/uL (0-0.5); Eosinophils % (auto) 3.1 %; Immature Granulocytes # (auto) 0.61 K/uL (0.00-0.02); Immature Granulocytes % (auto) 5.1 %; Lymphocytes # (auto) 2.21 K/uL (1.2-3.4); Lymphocytes % (auto) 18.4 %; Monocytes # (auto) 0.99 K/uL (0.11-0.59); Monocytes % (auto) 8.2 %; Neutrophils # (auto) 7.77 K/uL (1.4-6.5); Neutrophils % (auto) 64.6 %
[2020-10-23 07:03] LABS: BUN Creatinine Ratio 18.1 (10-20); Calcium 8.2 mg/dl (8.5-10.1); Creatinine Clr Calc Pharmacy 129.3 ml/min; Est GFR (African American) 123.6 ml/min; Est GFR (Non-African American) 106.6 ml/min; Potassium 3.9 mmol/L (3.5-5.1)
[2020-10-23] MEDS: metroNIDAZOLE 500 MG TAB PO SCH ×2 (08:11→12:44)
[2020-10-23] MEDS: ADVANCED PROBIOTIC 1250 MG CAPSULE PO SCH (08:11)
[2020-10-23] MEDS: ATORVASTATIN 20 MG TAB PO SCH (08:11)
[2020-10-23] MEDS: DOCUSATE SODIUM 100 MG CAP PO SCH (08:11)
[2020-10-23] MEDS: MULTIVITAMIN TAB PO SCH (08:11)
[2020-10-23] MEDS: HEPARIN SOD 5,000 UNIT/0.5 ML VIAL SQ SCH (08:12)
[2020-10-23] MEDS: INSULIN ASPART 100 UNITS/ML 3 ML PEN SC SCH ×2 (08:42→12:45)
[2020-10-23] MEDS ORDERED: cefTRIAXone SODIUM 2,000 MG in DEXTROSE 5% 50 ML IV SCH (08:55)
[2020-10-23] MEDS ORDERED: INSULIN GLARGINE SOLOSTAR 100 UNITS/ML 3 ML PEN SC SCH ×2 (09:00→11:30)
--- NOTE | 2020-10-23 10:32 | Pharmacy Report ---
Pharmacy Glycemic Short Note 2 - Date of Service October 23, 2020 - Glycemic Short BSG Results (Last 24 hours): 10/22/20 10/22/20 10/22/20 11:57 16:58 20:30 Glucose POC Glucose 140 H 179 H 188 H 10/23/20 10/23/20 05:56 08:34 Glucose 118 H POC Glucose 145 H OUTPATIENT ANTIDIABETIC REGIMEN: * Metformin 500 mg PO BIDM * Glimepiride 2 mg PO daily * HbA1c: 11.8% (10/16/20) ASSESSMENT: 10/23: * Pt has received 62 units of insulin over the past 24hrs * 40 units of basal with Lantus * 22 units of bolus with NovoLog * BSGs well controlled with current regimen. * Pt will need to DC on insulin based on A1c. Approaching DC soon - will start working Lantus to once daily dosing for transition to outpatient. Daily dosing preferred to simplify outpatient regimen. 10/22: * Patient's BSG yesterday 105, 149, 183, 184 mg/dL. * Patient received 69 units of insulin yesterday, 40 basal, 29 bolus * Will tighten novolog scale today looking at trend of higher post prandials at dinner and HS. CR may need to be tightened as well. * Continue current lantus scale. Patient requiring ~ 35-45 units of lantus a day. 10/21: * Patient well controlled over the past 24 hours, receiving 68 total units of insulin (45 basal, 23 bolus) * Fasting BSG downtrended again today. Will decrease total basal insulin by ~10- 20% * Postprandial BSGs improved continue current novolog scale. Patient is tolerating a diet. 10/19 * Pt has received 61 units of insulin over the past 24hrs * 30 units of basal with Lantus * 31 units of bolus with NovoLog * BSGs [phone] mg/dl * All BSGs above goal range despite doubling insulin doses yesterday. Will increase both basal and prandial insulin to achieve goal BSGs. * Goal is to maintain BSGs <200 mg/dl (ideally <150 mg/dl) to prevent post op complications * Also, recommend zinc, vitamin C and protein supplementation to promote wound healing in wound care patients Zinc: 50 mg elemental zinc (e.g., 220 mg zinc sulfate) PO three times per day until wound healed. Vitamin C: 500-3000mg/day depending on whether it causes soft stool, then back off Protein: may consult dietary for protein supplement recommendation. Could consider boost glucose control supplement 10/17: * BSGs yesterday of 229, 206, 195, and 172 mg/dL * NPO today for OR - possible I&D vs. amputation of right great toe * Fasting BSG of 158 mg/dL - will likely maintain current Lantus dosing * Antibiotics changed to vancomycin and cefepime 10/16: * DES is a 50 year old male admitted last evening for IV antibiotic treatment of diabetic foot ulcer and possible osteomyelitis * BSGs elevated last evening, 326 mg/dL on admission * Received 6 units IV insulin, 12 units of SC bolus, and 5 units of Lantus * Fasting BSG of 229 mg/dL this morning - pharmacy consulted for glycemic m anagement at that time * Initially NPO for possible surgical intervention, ordered diet at lunchtime * BSG of 206 at lunchtime was obtained postprandially - will cover carbs only PLAN FOR INPATIENT GLYCEMIC CONTROL: * Outpatient oral diabetes medications * Resume Metformin as DC in 1-2 days in tolerating PO * Continue to hold glimepiride. * Basal insulin * Lantus 20 units SQ given this AM; Will give 15 units with Lunch and then start Lantus 35 units SQ daily in AM tomorrow. * Bolus insulin: no change * NovoLog per scale ACHS or Q6hrs while NPO * Goal Range: Low 110 mg/dL - High 140 mg/dL * Correction Factor: 15 mg/dL/unit * Nutritional / Prandial insulin per carb ratio of 1 unit per 5 grams CHO consumed PLAN FOR DISCHARGE: * HbA1c of 11.8% suggests very poor outpatient glycemic control * Goal HbA1c for this patient should be less than 7% * Since A1c is greater than or equal to 10%, should consider triple therapy with metformin + basal insulin + (GLP1-RA OR prandial insulin). * Suggest discontinuing glimepiride if insulin initiated to decrease likelihood of hypoglycemia * Recommend: Glargine (Basaglar) 35 units SQ daily in AM * NovoLog 8 units SQ TIDM * Also suggest continuing to titrate metformin dosing upwards as recommended. * Dosage increases should be made in increments of 500 mg weekly, up to 2,000 mg/day PO, given in divided doses. * Suggest switching to XR formulation, as it is generally better tolerated * B12 supplementation may be necessary with ocean transportation intermediary metformin
--- NOTE | 2020-10-23 13:35 | Hospitalist Progress Note ---
Date of Service October 23, 2020 Assessment & Plan (1) Osteomyelitis: (2) Diabetic foot ulcer: (3) Diabetes mellitus: Patient is a 50 yr male with H/O diabetes, who presents with right great toe osteomyelitis. Right great toe osteomyelitis Diabetic foot ulcer -MRI R foot: Plantar soft tissue ulceration at the level the great toe. MRI evidence of osteomyelitis involving the proximal distal phalanges of the great toe. Suspected gas within the soft tissues. Diffuse edema within the foot mu sculature consistent with a myositis. Area of decreased enhancement within the flexor pollicis brevis, possibly secondary to an area of myonecrosis. Pathologic fracture involving the distal phalanx the great toe -S/P Right great toe amputation. Resection of flexor hallucis longus septic tendon. Tenosynovectomy of extensor hallucis longus tendon. Incision and drainage of abscess, first intermetatarsal space of the foot. Debridement of necrotic muscle, first intermetatarsal space. ON 10/18/20 by -R foot Wound: B beta strep, Svetlana -Blood Cx: No growth -Empirically on vancomycin, meropenem>> transition to Rocephin, Flagyl to complete the course -Appreciate ID/Ortho Input Patient to follow up with [facility] for IV antibiotics Start on Aspirin 81mg BID for DVT prophylaxis Needs follow-up with orthopedics upon discharge DM II uncontrolled Hb A1c 11.8% Hold glimepiride and metformin. Continue Insulin therapy Glycemic pharmacy consulted. Needs to be discharge don Insulin Hyperlipidemia: Continue statin Acute kidney injury: Cr back to baseline Monitor renal function Avoid nephrotoxic agents DVT Px: Heparin SQ Admission and Anticipated Discharge Date Admission Date: October 15, 2020 Subjective Patient is seen and examined bedside States feeling well No new complaints Denies any foot pain Discussed with Orthopedics today Denies chest pain dyspnea, dizziness, nausea, abdominal pain Review of Systems Review of Systems: All systems reviewed & are unremarkable except as noted in HPI & below Physical Exam Physical Exam: Physical Exam: Vitals signs as noted above General Appearance:Moderately built and nourished, no apparent distress Head: normocephalic, Atraumatic Eyes: normal inspection, EOMI Neck: supple, Trachea midline Respiratory/Chest: Normal breath sounds, CTA Cardiovascular: S1, S2, No murmur Abdomen/GI:Soft, Non tender, Bowel sounds present Extremities/Musculoskeletal:normal inspection, R foot in dressing Neurologic/Psych:AAOX3, grossly no focal neurological deficits Skin: normal color, warm Results & Data Results & Data ([facility]) Vital Signs (Past 12 Hours) Vital Signs Temp Pulse Resp BP Pulse Ox 10/23/20 07:05 36.9 C 84 18 157/88 H 96 Laboratory Results Short CBC 10/23/20 Range/Units 05:56 WBC 12.02 H (4.8-10.8) K/uL Hgb 12.7 L (14.0-18.0) g/dL Hct 38.4 L (42-52) % Plt Count 418 H (130-400) K/uL BMP 10/23/20 05:56 Sodium 137 Potassium 3.9 Chloride 104 Carbon Dioxide 26 BUN 13 Creatinine 0.73 Glucose 118 H Calcium 8.2 L (1) Osteomyelitis Laterality: unspecified laterality Osteomyelitis location: foot Osteomyelitis type: other acute Qualified Code(s): M86.179 - Other acute osteomyelitis, unspecified ankle and foot (2) Diabetic foot ulcer Diabetes mellitus type: other specified (including ANEESH) Diabetic foot ulcer location: toe Laterality: unspecified laterality Non-pressure ulcer stage: unspecified non-pressure ulcer stage Qualified Code(s): E13.621 - Other specified diabetes mellitus with foot ulcer; L97.509 - Non-pressure chronic ulcer of other part of unspecified foot with unspecified severity
--- NOTE | 2020-10-23 14:07 | Discharge Summary ---
Date of Service October 23, 2020 Admission HPI Per Admitting Provider CHIEF COMPLAINT: Right great toe infection. HISTORY OF PRESENT ILLNESS: This is a 50-year-old male with past medical history significant for diabetes, hyperlipidemia, obesity, has been diabetic for 4 years. Comes because of right great toe infection. The patient says in August he noticed an hemorrhagic blister in his right great toe, it burst by itself. He did not care much about it, but later in the last 24-48 hours, it has got swollen and some discomfort and went to PCP and advised to come here and x-ray is showing osteomyelitis. Great toe is swollen, erythematous, and ulcer is seen in the dorsal aspect. The patient denies any pain except pressure. He says he is able to ambulate okay on the leg. Yesterday he had some fever, but today he has no fever. Denies any other complaints. Currently resting comfortably and hemodynamically stable. Denies any headache, no blurred vision, no earache, no runny nose, no sore throat, no cough. Appetite is okay. No chest pain, no shortness of breath. No nausea, no abdominal pain. Normal bowel and bladder movements. Admission Exam Per Admitting Provider PHYSICAL EXAMINATION: GENERAL: The patient is obese, not in acute distress. VITAL SIGNS: Temperature 36.9, pulse 102, respiratory rate 20, blood pressure 197/66, oxygen 99% on room air. HEENT: Pupils equal, round, reactive to light. Oral mucosa moist. NECK: No JVD. No neck masses. CARDIOVASCULAR: S1, S2 heard, regular rate and rhythm, no murmur, no gallop. RESPIRATORY SYSTEM: Normal AP diameter. No accessory muscle use. No wheezing, no crackles. ABDOMEN: Soft, bowel sounds present, nontender. No distention. CENTRAL NERVOUS SYSTEM: Cranial nerves II-XII grossly intact, nonfocal. EXTREMITIES: Right great toe is swollen, erythematous and ulcer seen on the dorsal aspect. Principal Diagnosis Right great toe osteomyelitis Diabetic foot ulcer Uncontrolled diabetes mellitus Acute kidney injury Discharge Data Allergies Allergy/AdvReac Type Severity Reaction Status Date / Time Penicillins Allergy Intermediate Hives Verified 10/17/20 14:25 Consultations 10/15/20 19:39 ED Decision to Admit Stat 10/16/20 08:00 Consult Orthopedic Surgery Routine 10/19/20 12:37 Consult Infectious Diseases Routine Procedures Performed Operation Date: 10/17/20 07:00 Actual Procedures p debridement muscle first metatarsal space, Incision and drainage of abcess first metatarsal space(Right) - DO layla Segovia Amputation of Right Great Toe, Resection flexer hallucis longus, Tenosynovectomy Extensor Hallucis Longus , (Right) - Ricco Rodas DO Ordered Studies 10/16/20 08:46 MR foot RT wo/w con Routine -MRI R foot: Plantar soft tissue ulceration at the level the great toe. MRI evidence of osteomyelitis involving the proximal distal phalanges of the great toe. Suspected gas within the soft tissues. Diffuse edema within the foot musculature consistent with a myositis. Area of decreased enhancement within the flexor pollicis brevis, possibly secondary to an area of myonecrosis. Pathologic fracture involving the distal phalanx the great toe Diabetes Follow up Diabetes Follow-up Needed for HgbA1c >9% Hospital Course (1) Osteomyelitis: (2) Diabetic foot ulcer: (3) Diabetes mellitus: Patient is a 50 yr male with H/O diabetes, who presents with right great toe osteomyelitis. Right great toe osteomyelitis Diabetic foot ulcer -MRI R foot: Plantar soft tissue ulceration at the level the great toe. MRI evidence of osteomyelitis involving the proximal distal phalanges of the great toe. Suspected gas within the soft tissues. Diffuse edema within the foot musculature consistent with a myositis. Area of decreased enhancement within the flexor pollicis brevis, possibly secondary to an area of myonecrosis. Pathologic fracture involving the distal phalanx the great toe -S/P Right great toe amputation. Resection of flexor hallucis longus septic tendon. Tenosynovectomy of extensor hallucis longus tendon. Incision and drainage of abscess, first intermetatarsal space of the foot. Debridement of necrotic muscle, first intermetatarsal space. ON 10/18/[address]Barter Maloney foot Wound: B beta strep, Svetlana -Blood Cx: No growth -Empirically on vancomycin, meropenem>> transition to Rocephin, Flagyl to complete the course -Appreciate ID/Ortho Input Patient to follow up with [facility] for IV antibiotics Start on Aspirin 81mg BID for DVT prophylaxis Needs follow-up with orthopedics upon discharge DM II uncontrolled Hb A1c 11.8% Hold glimepiride and metformin. Continue Insulin therapy Glycemic pharmacy consulted. Needs to be discharge don Insulin Hyperlipidemia: Continue statin Acute kidney injury: Cr back to baseline Monitor renal function Avoid nephrotoxic agents DVT Px: Heparin SQ Total Time Total Time Spent Total Time Spent (In Minutes): 45 minutes Total Time Includes: Examination of the Patient, Discharge Planning, Medication Reconciliation, Communication With Other Providers and Other Discharge Plan Discharge Items Patient Disposition: Home - Self-Care Reason For Visit: TOE INJURY/INFECTION Discharge Diagnosis: Right great toe osteomyelitis Diabetic foot ulcer Uncontrolled diabetes mellitus Acute kidney injury Condition on Discharge: Good Activity: Per Instructions section Exercise/Sports: Wait until after follow-up appointment Non-emergency contact: Primary Care Provider and Surgeon Call non-emergency contact if: you have any medication questions, your symptoms worsen, your pain is not controlled, your pain is concerning for you, you have a fever, your wound has increased redness, your wound has increased drainage and your wound pain has increased Follow-up/Referrals: Edwin Garcia MD [Primary Care Provider] - (Date & Time 10/30/2020 11:20 AM Provider Manuel Pa MD Department Family Medicine [facility] [address], [place] [address] 11/03 at 1:30 pm ) Diet: Carb Consistent or DM2 and Heart Healthy Add Attending Provider Instructions: Follow up with your Primary care physician in 1 week Follow-up with your orthopedic surgeon As recommended by your surgeon. Complete antibiotic course IV Rocephin, Flagyl as prescribed for 10 more days as prescribed. Take Aspirin 81mg twice a day for 4 weeks to prevent clots. Discussed with your physician for further adjustment of your diabetic medications for better control of your diabetes. Take Insulin regularly as prescribed. Seek immediate medical attention if your symptoms reoccur or worsen Please take all medications as instructed on discharge list below. Please call if you have any questions or problems. You can reach a [facility] hospitalist on duty at [facility] 24 hours a day by calling [phone] [facility] [employer] Provider Instructions: ACTIVITY RECOMMENDATIONS: Limitations: Nonweightbearing on the right foot at this time. Use crutches or walker for assistance. SPECIAL CARE INSTRUCTIONS: * Some drainage onto the dressing is normal and is no cause for alarm. * Some swelling is natural especially after walking. * When resting, keep your foot elevated above the level of your heart. * Call [facility] if you notice: -Increased drainage -Fever over 101 degrees F -Severe constant pain -Increased redness of the foot BANDAGE: * Daily dressing changes. .Use Aquacel AG on the incision at the tip of where the toe was. * Keep bandage/cast dry at all times. PIN CARE: * Leave pins alone. * If pins come loose or fall out, notify physician. FOLLOW UP VISIT WITH DR. RODAS If appointment is not already scheduled: Please call [facility] after you get home today to schedule a follow-up appointment for [address] Rodas at . Pending Studies at Discharge: No Stand-Alone Forms: My [facility] Press, Smoking Cessation Medications and DC Order Prescriptions: New polyethylene glycol 3350 [Miralax] 17 gram Powder In Packet 17 g PO DAILY PRN (Reason: constipation) Qty: 30 RF: 0 metronidazole 500 mg Tablet 500 mg PO TID Qty: 30 RF: 0 docusate sodium 100 mg Capsule 100 mg PO BID PRN (Reason: Constipation) Qty: 30 RF: 0 metformin 500 mg Tablet Extended Release 24 Hr 500 mg PO BIDM Qty: 60 RF: 0 Lantus Solostar U-100 Insulin 100 unit/mL (3 mL) Insulin Pen 35 unit SC DAILY 30 Days Qty: 10.5 RF: 1 aspirin 81 mg tablet,delayed release (DR/EC) 81 mg PO BID 28 Days Qty: 56 RF: 0 oxycodone 5 mg Tablet 5 mg PO Q8H PRN (Reason: pain) Qty: 10 RF: 0 insulin aspart U-100 [Novolog Flexpen U-100 Insulin] 100 unit/mL (3 mL) Insulin Pen 8 unit SC TIDM 30 Days Qty: 2.4 RF: 1 (DME) blood-glucose meter [OneTouch Verio Meter] Misc See Rx Instructions .ROUTE .MEDSUPPLY Qty: 1 RF: 0 (DME) lancets [OneTouch Delica Lancets] 33 gauge misc See Rx Instructions .ROUTE .MEDSUPPLY Qty: 100 RF: 1 (DME) pen needle, diabetic [Pen Needle] 32 gauge x 5/32" needle See Rx Instructions .ROUTE .MEDSUPPLY Qty: 50 RF: 1 ceftriaxone 2 gram recon soln 2 g IV DAILY 10 Days RF: 0 Continued atorvastatin 20 mg tablet 20 mg PO DAILY RF: 0 Discontinued metformin 500 mg tablet 500 mg PO BID RF: 0 glimepiride 2 mg tablet 2 mg PO DAILY RF: 0 Discharge Orders: Discharge Order (Routine); Ordered 10/23/20 Ordered By: Cuba Dutta/Other Patient Handouts: High Blood Sugar (Hyperglycemia), Hypoglycemia (Low Blood Sugar), Managing Type 2 Diabetes Admission Data Admit Date/Time: 10/15/20 20:31 Attending Provider: Cuba Cunningham Admit Provider: Yousfi Scott Primary Care Provider: Edwin Garcia Other Providers: Yousif Scott ; Ricco Rodas ; Osito Morales ; Raul Guerrero ; Gioavny Vazquez I. ; Magen Cabral II ; Trinidad Bryan ; Carlos Eason ; River Bazan [facility] Other Interventions: Discharge Summary Assessment (RN) Last Done: 10/23/20 14:28
[2020-10-23] MEDS ORDERED: metFORMIN HCL ER 500 MG TABCR PO SCH (17:00)
[2020-10-24] MEDS ORDERED: INSULIN GLARGINE SOLOSTAR 100 UNITS/ML 3 ML PEN SC SCH (09:00)
== END 2020-10-23 15:40 | disposition home or self-care (01) | DRG 617 ==
LOC: ED 16:42 → SUATTDRO 20:31 → 3N 20:31
DX: M84.477A Pathological fracture, right toe(s), initial encounter for fracture; L02.611 Cutaneous abscess of right foot; R17 Unspecified jaundice; E11.621 Type 2 diabetes mellitus with foot ulcer; Z79.84 Long term (current) use of oral hypoglycemic drugs; Z88.0 Allergy status to penicillin; Z79.899 Other long term (current) drug therapy; L97.519 Non-pressure chronic ulcer of other part of right foot with unspecified severity; M65.171 Other infective (teno)synovitis, right ankle and foot; I96 Gangrene, not elsewhere classified; B95.1 Streptococcus, group B, as the cause of diseases classified elsewhere; M60.076 Infective myositis, right toe(s); E11.65 Type 2 diabetes mellitus with hyperglycemia; M86.9 Osteomyelitis, unspecified; N17.9 Acute kidney failure, unspecified; E78.5 Hyperlipidemia, unspecified; Z68.32 Body mass index [BMI] 32.0-32.9, adult; E11.69 Type 2 diabetes mellitus with other specified complication; Z83.430 Family history of elevated lipoprotein(a); E66.9 Obesity, unspecified; B37.2 Candidiasis of skin and nail; E11.52 Type 2 diabetes mellitus with diabetic peripheral angiopathy with gangrene

== ENCOUNTER 2023-12-13 18:03 | Inpatient (IN) ==
--- NOTE | 2023-12-13 18:15 | ED Triage Note ---
Date of Service December 13, 2023 Provider in Triage Author: Florentino Bowen History of Present Illness This patient was briefly evaluated while in triage. An abbreviated physical exam was performed. This patient is a 53-year-old Male who presents to the ED for evaluation of ulcerated wound on foot. Now notes chills. [place] [employer] [facility] [place] No current antibiotics. Notes shakes, freezing, temp last temp was 101. No pain in foot but notes neuropathy. Wound he notes is open on right foot. Physical Exam GENERAL: 53 year old male. In no acute distress. SKIN: No lesions or rashes. R foot covered at this time. HEART: Regular rate and rhythm. LUNGS: Clear to auscultation. NEURO: Alert and oriented. No deficits. MUSCULOSKELETAL: Pt able to stand and ambulate PSYCH: Patient is pleasant and answers all questions appropriately. Initial orders for labs and / or imaging were placed and patient
--- NOTE | 2023-12-13 18:17 | Emergency Department Note ---
History of Present Illness General Chief complaint: Infection, Wound Stated complaint: WOUND ON RT FOOT, INFECTED Time Seen by Provider: 12/13/23 18:15 History of Present Illness This is a 53-year-old male with a history of diabetes, osteomyelitis, foot surgery/amputation as well as neuropathy that presents to the emergency department via private vehicle with complaints of "foot infection". The patient notes that yesterday he began with chills, shaking, and fever. He is worried now that there is some redness on the right foot that this may be an infection. He notes a history of osteomyelitis previously. The patient denies any pain but does note underlying neuropathy. Not currently on antibiotics. He follows with [facility] Dr. Fonseca. Home Medications Medication Instructions Recorded Confirmed Type atorvastatin 20 mg tablet 20 mg PO QAM 10/15/20 12/13/23 History cetirizine 10 mg tablet (Zyrtec) 10 mg PO HS PRN Allergy Symptoms 08/03/21 12/13/23 History diphenhydramine HCl 25 mg capsule 25 mg PO DAILY PRN Allergy Symptoms 08/03/21 12/13/23 History (Benadryl) blood sugar diagnostic (OneTouch #100 ea 06/20/22 09/13/23 Rx Ultra Test strips) lancets 33 gauge (OneTouch Delica #100 ea 06/20/22 09/13/23 Rx Lancets) blood-glucose meter,continuous #1 ea 09/21/22 09/13/23 Rx (Dexcom G7 Thermodynamics Teacher) aspirin 81 mg chewable tablet 81 mg PO DAILY 01/28/23 12/13/23 History metformin 500 mg tablet,extended 1,000 mg (2 x 500 mg) PO BIDM #360 02/25/23 12/13/23 Rx release 24 hr tabs pen needle, diabetic 32 gauge x #400 ea 03/08/23 09/13/23 Rx 5/32" (Pen Needle) lisinopril 2.5 mg tablet 2.5 mg PO DAILY #90 tabs 04/25/23 12/13/23 Rx empagliflozin 25 mg tablet 25 mg PO DAILY #30 tabs 07/20/23 12/13/23 Rx (Jardiance) Dexcom G7 Sensor (blood-glucose #3 ea 09/08/23 09/13/23 Rx sensor) semaglutide 1 mg/dose (4 mg/3 mL) 1 mg (0.75 mL) subcut ONCE #3 mL 09/13/23 12/13/23 Rx subcutaneous pen injector (Ozempic) insulin aspart U-100 100 unit/mL 7 - 8 unit subcut TID 12/13/23 12/13/23 History (3 mL) subcutaneous pen (Novolog FlexPen U-100 Insulin aspart) insulin glargine 100 unit/mL (3 24 - 26 unit subcut HS 12/13/23 12/13/23 History mL) subcutaneous pen (Basaglar KwikPen U-100 Insulin) levothyroxine 88 mcg tablet 88 mcg PO DAILYBB 12/13/23 12/13/23 History Allergies Allergy/AdvReac Type Severity Reaction Status Date / Time Penicillins Allergy Intermediate Hives Verified 12/13/23 20:01 Past Med/Surg History Problem List (Updated 12/14/23 @ 00:55 by Florentino Bowen PA-C) Hyponatremia (Acute) Leukocytosis (Acute) Fever (Acute) Diabetic foot infection (Acute) Hypertension History of amputation of toe (Acute) Persistent microalbuminuria associated with type 2 diabetes mellitus Proliferative diabetic retinopathy associated with type 2 diabetes mellitus Type 2 diabetes mellitus Subclinical hypothyroidism Acquired claw toe of right foot Toe osteomyelitis, right Osteomyelitis (Acute) Diabetic foot ulcer (Acute) Acute hyperglycemia (Acute) Diabetes mellitus Venous ulcer of left leg (Acute) Type II diabetes mellitus with complication, uncontrolled (Chronic) Chronic venous insufficiency (Chronic) Status post partial amputation of foot Type 2 diabetes mellitus, controlled Diabetic ulcer of right fifth toe (Acute) Encounter for pre-operative examination Diabetic peripheral neuropathy associated with type 2 diabetes mellitus Obesity Hyperlipidemia Medical History Osteomyelitis HX (No active issue/open wounds at present) Type 2 diabetes mellitus IDDM Surgical History History of foot surgery RIGHT TOE-04/2021 H/O vascular surgery LEFT GREAT SAPHENOUS VEIN RADIOFREQUENCY ABLATION History of colonoscopy 2020 [place] teeth removed History of tonsillectomy Amputation of right great toe Right great toe amputation (10/17/20): MAC at [facility] Family History Father Diabetes Dyslipidemia Mother Family history of reaction to anesthesia Social History Smoking Status: Never smoker Second Hand Exposure: No; Do You Dip or Chew Tobacco: No; Hx Alcohol Use: No Hx Substance Use: No Preferred Language: Swedish Communication Ability: Effective Occupational Therapist Assistant Required: No Beliefs That Will Affect Care: None Current Living Situation: Family Current Living Situation Comment: and son current occupation: [employer] Feels Safe at Home: Yes Safety Concerns: Feels Safe At This Time Assistive Devices: Cane and Glasses Review of Systems A total of 10 systems reviewed and were otherwise negative Physical Exam Vital Signs Vital Signs - 24 hr 12/13/23 18:09 12/13/23 19:06 12/13/23 19:21 Temperature 37.9 C H Temperature Source Oral Pulse Rate 127 H 113 H 112 H Pulse Rate from SpO2 Sensor 113 H 114 H Respiratory Rate 18 Respiratory Effort / Characteristics Non-Labored Spontaneous Respiratory Depth Normal Blood Pressure 106/68 Blood Pressure Mean 80 Blood Pressure Position Sitting Pulse Oximetry 97 97 96 Oxygen Delivery Method Room Air Sepsis Recent Fever Within 48 Hours No Sepsis New/Unexplained Change in Mental Status N/A Sepsis Action Taken by Nursing No Action Required 12/13/23 19:30 12/13/23 19:48 12/13/23 19:57 Temperature Temperature Source Pulse Rate 113 H 110 H 110 H Pulse Rate from SpO2 Sensor 113 H 110 H 109 H Respiratory Rate 18 Respiratory Effort / Characteristics Respiratory Depth Blood Pressure Blood Pressure Mean Blood Pressure Position Pulse Oximetry 96 95 96 Oxygen Delivery Method Sepsis Recent Fever Within 48 Hours Sepsis New/Unexplained Change in Mental Status Sepsis Action Taken by Nursing 12/13/23 20:06 12/13/23 20:15 12/13/23 20:21 Temperature Temperature Source Pulse Rate 111 H Pulse Rate from SpO2 Sensor 112 H 109 H 107 H Respiratory Rate Respiratory Effort / Characteristics Respiratory Depth Blood Pressure Blood Pressure Mean Blood Pressure Position Pulse Oximetry 96 96 96 Oxygen Delivery Method Sepsis Recent Fever Within 48 Hours Sepsis New/Unexplained Change in Mental Status Sepsis Action Taken by Nursing VITAL SIGNS - Vital signs and nursing notes were reviewed. Tachycardic, febrile. GENERAL -53-year-old male appearing his stated age who is in no acute distress. Communicates well with provider and answers questions appropriately. SKIN -amputations noted to the right foot area. Ulcerative wound with purulence noted to the plantar aspect of the right foot distally. Small wound to the second toe of the left foot as well, plantar aspect. HEAD - NC/AT. EYES - PERRL with EOMI bilaterally. Sclera anicteric. NOSE - Midline and without cyanosis. No epistaxis or purulent drainage noted. MOUTH/OROPHARYNX - Without perioral cyanosis. NECK - No nuchal rigidity. LUNGS - CTA CARDIAC - RRR EXTREMITIES - No clubbing or peripheral cyanosis. Skin as above. Erythema to the dorsal right foot and medial right foot tracking towards the ankle. +5/5 strength noted in UE/LE bilaterally. NEUROLOGIC -patient with underlying neuropathy to the bilateral feet and is without sensation at this time which is chronic. PSYCH -alert, oriented and pleasant on exam. Course Administered Medications Sodium Chloride (Nss) 1,000 mls @ 50 mls/hr IV .Q20H [facility] Stop: 01/12/24 20:29 Last Admin: 12/13/23 20:42 Dose: 50 mls/hr Documented By: PRASANNA Vancomycin HCl 1,750 mg/ (Sodium Chloride) 535 mls @ 200 mls/hr IV NOW ONE Stop: 12/14/23 01:55 Last Admin: 12/13/23 23:51 Dose: 200 mls/hr Documented By: GILMAR Insulin Aspart (Insulin Aspart Per Unit Charge) 0 units SC Q6 MELE Stop: 01/13/24 00:00 Last Admin: 12/13/23 23:51 Dose: Not Given Documented By: GILMAR Insulin Glargine (Lantus Per Unit Charge) 15 units SQ HS MELE Stop: 01/12/24 23:14 Last Admin: 12/13/23 23:22 Dose: 15 units Documented By: GILMAR Co-signed By: [facility] Ondansetron HCl (Ondansetron Inj 2 Mg/Ml 2 Ml Vial) 4 mg IV Q6H PRN PRN Reason: Nausea Stop: 01/12/24 22:52 Last Admin: 12/13/23 23:22 Dose: 4 mg Documented By: GILMAR Discontinued Medications Cefepime HCl (Maxipime) 2,000 mg in 20 mls @ 5 mls/min IV NOW STA; Protocol Stop: 12/13/23 18:25 Last Admin: 12/13/23 18:36 Dose: 5 mls/min Documented By: SUREKHA Sodium Chloride (Nss) 1,000 mls @ 999 mls/hr IV .Q1H1M MELE Stop: 12/13/23 19:30 Last Infusion: 12/13/23 19:41 Dose: Infused Documented By: Admin: 12/13/23 18:36 Dose: 999 mls/hr Documented By: SUREKHA Insulin Aspart (Insulin Aspart Per Unit Charge) 0 units SC ACHS MELE Stop: 01/12/24 22:52 Last Admin: 12/13/23 23:00 Dose: Not Given Documented By: GILMAR Medical Decision Making Laboratory Data 12/13/23 18:47 12/13/23 23:33 Lab Results 12/13/23 12/13/23 Range/Units 18:40 18:47 WBC 17.27 H (4.8-10.8) K/ul RBC 4.68 L (4.70-6.10) M/uL Hgb 13.8 L (14.0-18.0) g/dl Hct 40.7 L (42.0-52.0) % MCV 87.0 (80.0-100.0) fL MCH 29.5 (25.0-34.0) pg MCHC 33.9 (32.0-36.0) g/dL RDW Std Deviation 42.1 (36.4-46.3) fL RDW Coeff of Gracie 13.2 (11.5-14.5) % Plt Count 378 (130-400) K/uL MPV 9.3 L (9.4-12.4) fL Immature Gran % (Auto) 2.8 % Neut % (Auto) 84.3 % Lymph % (Auto) 6.4 % Harlan % (Auto) 5.8 % Eos % (Auto) 0.1 % Baso % (Auto) 0.6 % Neut # (Auto) 14.55 H (1.40-6.50) K/uL Lymph # (Auto) 1.11 L (1.20-3.40) K/uL Harlan # (Auto) 1.01 H (0.11-0.59) K/uL Eos # (Auto) 0.01 (0.00-0.50) K/uL Baso # (Auto) 0.10 (0.00-0.20) K/uL Immature Gran # (Auto) 0.49 H (0.01-0.20) K/uL PT 13.7 H (9.0-12.0) Seconds INR 1.3 H (0.9-1.1) APTT 30 (21-31) Seconds PTT Ratio 1.1 Sodium 125 L (136-145) mmol/L Potassium 5.1 (3.5-5.1) mmol/L Chloride 95 L (98-107) mmol/L Carbon Dioxide 19 L (21-32) mmol/L Anion Gap 11 (3-11) BUN 26 H (6-23) mg/dl Creatinine 1.23 (0.6-1.4) mg/dl Est Cr Clr Drug Dosing 72.8 ml/min Est GFR ( Amer) 76.1 ml/min Est GFR (Non-Af Amer) 65.7 ml/min BUN/Creatinine Ratio 21.1 H (10-20) Glucose 160 H (70-99(Fasting)) mg/dl Lactate 1.7 (0.4-2.0) mmol/L Calcium 8.2 L (8.6-10.3) mg/dl Total Bilirubin 1.1 H (0.2-1.0) mg/dl AST 29 (13-39) U/L ALT 39 (7-52) U/L Alkaline Phosphatase 163 H (34-104) U/L Total Protein 8.2 (6.0-8.3) gm/dl Albumin 2.7 L (3.4-5.0) gm/dl Globulin 5.5 H (2.5-4.0) gm/dl Albumin/Globulin Ratio 0.5 L (0.9-2) Procalcitonin 0.70 H (0-0.5) ng/ml Adenovirus (PCR) Not Detected (NotDetected) B. pertussis DNA (PCR) Not Detected (NotDetected) B.parapertussis DNA PCR Not Detected (NotDetected) C. pneumoniae DNA (PCR) Not Detected (NotDetected) Coronavirus OC43 (PCR) Not Detected (NotDetected) Coronavirus HKU1 (PCR) Not Detected (NotDetected) Coronavirus 229E (PCR) Not Detected (NotDetected) SARS-CoV-2 (PCR) DETECTED A (NotDetected) Coronavirus NL63 (PCR) Not Detected (NotDetected) Human Metapneumovir PCR Not Detected (NotDetected) Influenza Type A (PCR) Not Detected (NotDetected) Influenza Type B (PCR) Not Detected (NotDetected) M. pneumoniae (PCR) Not Detected (NotDetected) Parainfluenza 1 (PCR) Not Detected (NotDetected) Parainfluenza 2 (PCR) Not Detected (NotDetected) Parainfluenza 3 (PCR) Not Detected (NotDetected) Parainfluenza 4 (PCR) Not Detected (NotDetected) RSV (PCR) Not Detected (NotDetected) Entero/Rhino (PCR) Not Detected (NotDetected) Imaging Data My Impression: Right foottoes 3 and 4 present, remainder previously amputated. Ulceration/area seen noted distal to second metatarsal. Left footdegenerative changes noted, no fracture or dislocation. MDM Narrative Patient was seen and evaluated as above in room C02. Review was performed of triage nursing notes and vital signs. I did review pertinent previous visits and patient history. After obtaining a thorough history and physical examination the above work up was performed. Patient presents to us today for assessment of progressive erythema and edema to the right foot with ulceration noted. He has a history of osteomyelitis. Patient presentation is concerning for that of SIRS/sepsis noting tachycardic, febrile state 37.9 with evidence of infection to the foot. Patient was immediately evaluated upon arrival to triage and then also in room C2. Options of care were discussed with the patient. IV access with established. Labs were drawn. I did obtain a culture of the foot wound prior to IV antibiotic initiation. Blood culture also ordered. IV cefepime was ordered, I did confirm noting penicillin allergy he has had this before and per review of the EMR he has without issue. IV fluids also ordered. Patient is not hypotensive. Lactate is not above 4 therefore will trend heart rate with IV the IV hydration. Leukocytosis 17.27. Mild anemia. There is hyponatremia 125. BUN 26. Glucose 160. Lactate normal at 1.7. X-rays were performed of the bilateral feet. Per my interpretation Right foottoes 3 and 4 present, remainder previously amputated. Ulceration/area seen noted distal to second metatarsal. Left footdegenerative changes noted, no fracture or dislocation. Formal radiology report will be available in the a.m. Procalcitonin returned slightly elevated at 0.70. Bio fire returned positive with COVID-19. At this time I do believe that further evaluation and management is warranted in the inpatient setting. Case discussed with the hospitalist service. Please refer to further documentation regarding his stay. GCS: 15 In the evaluation and treatment of this patient the following differential diagnoses were entertained: Fracture, dislocation, subluxation, contusion, osteomyelitis, cellulitis, abscess, among others. Impression & Plan Diabetic foot ulcer, History of amputation of toe, Diabetic foot infection, Fever, Leukocytosis, Hyponatremia Discharge Plan Visit Data Chief Complaint: Infection, Wound Stated Complaint: WOUND ON RT FOOT, INFECTED ED Provider: Andreas Miller ED Midlevel Provider: Florentino Bowen Discharge Problem: Diabetic foot ulcer, History of amputation of toe, Diabetic foot infection, Fever, Leukocytosis, Hyponatremia Patient Disposition: Admitted As Inpatient Condition: Good Discharge Instructions Interventions: ED Discharge Assessment Last Done: 12/13/23 23:56
[2023-12-13] MEDS: CEFEPIME 2,000 MG/20 ML VIAL IV STA (18:36)
[2023-12-13] MEDS: SODIUM CHLORIDE 0.9% 1,000 ML IV SCH ×2 (18:36→20:42)
[2023-12-13 19:05] LABS: Basophils % (auto) 0.6 %; Eosinophils # (auto) 0.01 K/uL (0.00-0.50); Eosinophils % (auto) 0.1 %; Hematocrit (blood only) 40.7 % (42.0-52.0); Hemoglobin 13.8 g/dl (14.0-18.0); Immature Granulocytes # (auto) 0.49 K/uL (0.01-0.20); Immature Granulocytes % (auto) 2.8 %; Lymphocytes # (auto) 1.11 K/uL (1.20-3.40); Lymphocytes % (auto) 6.4 %; Mean Corpuscular Hemoglobin 29.5 pg (25.0-34.0); Mean Corpuscular Hgb Conc 33.9 g/dL (32.0-36.0); Mean Platelet Volume 9.3 fL (9.4-12.4); Monocytes # (auto) 1.01 K/uL (0.11-0.59); Monocytes % (auto) 5.8 %; Neutrophils # (auto) 14.55 K/uL (1.40-6.50); Neutrophils % (auto) 84.3 %; Platelet Count 378 K/uL (130-400); RDW Coefficient of Variation 13.2 % (11.5-14.5); RDW Standard Deviation 42.1 fL (36.4-46.3); Red Blood Count 4.68 M/uL (4.70-6.10); White Blood Count 17.27 K/ul (4.8-10.8)
[2023-12-13 19:19] LABS: Albumin Globulin Ratio 0.5 (0.9-2); Albumin Level 2.7 gm/dl (3.4-5.0); BUN Creatinine Ratio 21.1 (10-20); Bilirubin,Total 1.1 mg/dl (0.2-1.0); Calcium 8.2 mg/dl (8.6-10.3); Creatinine Clr Calc Pharmacy 72.8 ml/min; Est GFR (African American) 76.1 ml/min; Est GFR (Non-African American) 65.7 ml/min; Globulin 5.5 gm/dl (2.5-4.0); Potassium 5.1 mmol/L (3.5-5.1); Total Protein 8.2 gm/dl (6.0-8.3)
[2023-12-13 19:29] LABS: INR 1.3 (0.9-1.1); Partial Thromboplastin Ratio 1.1; Partial Thromboplastin Time 30 Seconds (21-31); Prothrombin Time 13.7 Seconds (9.0-12.0)
[2023-12-13 19:51] LABS: Adenovirus PCR Not Detected (NotDetected); Bordetella parapertussis PCR Not Detected (NotDetected); Bordetella pertussis PCR Not Detected (NotDetected); Chlamydia pneumoniae PCR Not Detected (NotDetected); Coronavirus 229E PCR Not Detected (NotDetected); Coronavirus CoV-2 (COVID19)PCR DETECTED (NotDetected); Coronavirus HKU1 PCR Not Detected (NotDetected); Coronavirus NL63 PCR Not Detected (NotDetected); Coronavirus OC43PCR Not Detected (NotDetected); Human Metapneumovirus PCR Not Detected (NotDetected); Influenza A PCR Not Detected (NotDetected); Influenza B PCR Not Detected (NotDetected); Mycoplasma pneumoniae PCR Not Detected (NotDetected); Parainfluenza Virus 1 PCR Not Detected (NotDetected); Parainfluenza Virus 2 PCR Not Detected (NotDetected); Parainfluenza Virus 3 PCR Not Detected (NotDetected); Parainfluenza Virus 4 PCR Not Detected (NotDetected); Respiratory Syncytial VirusPCR Not Detected (NotDetected); Rhinovirus/Enterovirus PCR Not Detected (NotDetected)
--- NOTE | 2023-12-13 20:58 | History & Physical Report ---
Date of Service December 13, 2023 Assessment & Plan (1) Diabetic foot infection: Plan: 53-year-old male with past medical history significant for type 2 diabetes, diabetic peripheral neuropathy, hyperlipidemia, hypothyroidism, right toe amputation, bilateral optic nerve atrophy comes Because of Infection in the Right Foot and Also in the Left Great Toe. Patient Noticed Some Hole in His Right Foot Plantar Aspect and Also Callus in Left Big Toe on the Plantar A spect. He Is Wiping and Cleaning Them Dry. For Last 2 Days He Is Developing Fevers and Rigors and Not Feeling Well. Poor Appetite. Somewhat Nauseous. Denies Any Pain in the Foot. Able to Ambulate with the Boots on. Regularly Follows with Orthopedics. Denies Any Headache. No Runny Nose or Sore Throat. No Cough. No Chest Pain or Shortness of Breath. No Abdominal Pain. Normal Bowel and Bladder Movements. Resting Comfortably. Diabetic foot infection Possible early sepsis with fevers, tachycardia and leukocytosis Cellulitis of right foot Infected callus on the posterior aspect of the right foot and also on the posterior aspect of left big toe Empiric Vanco and cefepime N.p.o. after midnight Ortho consult in a.m. Close monitor COVID-positive Seems asymptomatic COVID precautions Close monitor Hyponatremia Sodium 125 Will check serum osmolality urine osmolality and urine sodium levels Getting gentle fluids BMP every 6 hours Slow correction Nephro consult in a.m. Hyperlipidemia On statin Diabetes Hold Jardiance and Ozempic Continue home Lantus and will reduced dose if continue to be n.p.o. Sliding scale Glycemic pharmacy consult Will follow HbA1c levels and blood sugars Hypertension Holding lisinopril for now Will monitor Hypothyroidism Continue Synthyroid DVT prophylaxis SCDs for now If no procedures planned Will place him on Lovenox Disposition Med/telemetry Full code. History of Present Illness Primary Care Provider: NO PCP 53-year-old male with past medical history significant for type 2 diabetes, diabetic peripheral neuropathy, hyperlipidemia, hypothyroidism, right toe amputation, bilateral optic nerve atrophy comes Because of Infection in the R ight Foot and Also in the Left Great Toe. Patient Noticed Some Hole in His Right Foot Plantar Aspect and Also Callus in Left Big Toe on the Plantar Aspect. He Is Wiping and Cleaning Them Dry. For Last 2 Days He Is Developing Fevers and Rigors and Not Feeling Well. Poor Appetite. Somewhat Nauseous. Denies Any Pain in the Foot. Able to Ambulate with the Boots on. Regularly Follows with Orthopedics. Denies Any Headache. No Runny Nose or Sore Throat. No Cough. No Chest Pain or Shortness of Breath. No Abdominal Pain. Normal Bowel and Bladder Movements. Resting Comfortably. Past medical history. As mentioned above Past surgical history. Amputation of the right big toe for osteomyelitis, amputation of right little toe. Colonoscopy. Dental surgery. Family family history. Father had high triglycerides. Social history. . No smoking. Alcohol rarely. No drug use. Allergies Allergy/AdvReac Type Severity Reaction Status Date / Time Penicillins Allergy Intermediate Hives Verified 12/13/23 20:01 Home Medications Medication Instructions Recorded Confirmed Type atorvastatin 20 mg tablet 20 mg PO QAM 10/15/20 12/13/23 History cetirizine 10 mg tablet (Zyrtec) 10 mg PO HS PRN Allergy Symptoms 08/03/21 12/13/23 History diphenhydramine HCl 25 mg capsule 25 mg PO DAILY PRN Allergy Symptoms 08/03/21 12/13/23 History (Benadryl) blood sugar diagnostic ([email or web address] #100 ea 06/20/22 09/13/23 Rx Ultra Test strips) lancets 33 gauge ([email or web address]comTouch Delica #100 ea 06/20/22 09/13/23 Rx Lancets) blood-glucose meter,continuous #1 ea 09/21/22 09/13/23 Rx (Dexcom G7 Career Technical Education Instructor) aspirin 81 mg chewable tablet 81 mg PO DAILY 01/28/23 12/13/23 History metformin 500 mg tablet,extended 1,000 mg (2 x 500 mg) PO BIDM #360 02/25/23 12/13/23 Rx release 24 hr tabs pen needle, diabetic 32 gauge x #400 ea 03/08/23 09/13/23 Rx 5/32" (Pen Needle) lisinopril 2.5 mg tablet 2.5 mg PO DAILY #90 tabs 04/25/23 12/13/23 Rx empagliflozin 25 mg tablet 25 mg PO DAILY #30 tabs 07/20/23 12/13/23 Rx (Jardiance) Dexcom G7 Sensor (blood-glucose #3 ea 09/08/23 09/13/23 Rx sensor) semaglutide 1 mg/dose (4 mg/3 mL) 1 mg (0.75 mL) subcut ONCE #3 mL 09/13/23 12/13/23 Rx subcutaneous pen injector (Ozempic) insulin aspart U-100 100 unit/mL 7 - 8 unit subcut TID 12/13/23 12/13/23 History (3 mL) subcutaneous pen (Novolog FlexPen U-100 Insulin aspart) insulin glargine 100 unit/mL (3 24 - 26 unit subcut HS 12/13/23 12/13/23 History mL) subcutaneous pen (Basaglar KwikPen U-100 Insulin) levothyroxine 88 mcg tablet 88 mcg PO DAILYBB 12/13/23 12/13/23 History Past Med/Surg History Problem List (Updated 12/14/23 @ 00:55 by Florentino Bowen PA-C) Hyponatremia (Acute) Leukocytosis (Acute) Fever (Acute) Diabetic foot infection (Acute) Hypertension History of amputation of toe (Acute) Persistent microalbuminuria associated with type 2 diabetes mellitus Proliferative diabetic retinopathy associated with type 2 diabetes mellitus Type 2 diabetes mellitus Subclinical hypothyroidism Acquired claw toe of right foot Toe osteomyelitis, right Osteomyelitis (Acute) Diabetic foot ulcer (Acute) Acute hyperglycemia (Acute) Diabetes mellitus Venous ulcer of left leg (Acute) Type II diabetes mellitus with complication, uncontrolled (Chronic) Chronic venous insufficiency (Chronic) Status post partial amputation of foot Type 2 diabetes mellitus, controlled Diabetic ulcer of right fifth toe (Acute) Encounter for pre-operative examination Diabetic peripheral neuropathy associated with type 2 diabetes mellitus Obesity Hyperlipidemia Medical History Osteomyelitis HX (No active issue/open wounds at present) Type 2 diabetes mellitus IDDM Surgical History History of foot surgery RIGHT TOE-04/2021 H/O vascular surgery LEFT GREAT SAPHENOUS VEIN RADIOFREQUENCY ABLATION History of colonoscopy 2020 [place] teeth removed History of tonsillectomy Amputation of right great toe Right great toe amputation (10/17/20): MAC at [facility] Family History Father Diabetes Dyslipidemia Mother Family history of reaction to anesthesia Social History Smoking Status: Never smoker Second Hand Exposure: No; Do You Dip or Chew Tobacco: No; Hx Alcohol Use: No Hx Substance Use: No Preferred Language: French Communication Ability: Effective Heating Mechanic Required: No Beliefs That Will Affect Care: None Current Living Situation: Family Current Living Situation Comment: and son current occupation: IT [employer] Feels Safe at Home: Yes Safety Concerns: Feels Safe At This Time Assistive Devices: Cane and Glasses Review of Systems Review of Systems: All systems reviewed & are unremarkable except as noted in HPI & below Physical Exam Physical Exam: General- Not in distress Head- atraumatic Eyes- PERRL. ENT- oropharynx clear Neck- supple, no JVD. Lungs- clear to auscultation no wheezing or crackles Heart- regular rhythm; no murmur, no gallop. Abdomen- normal bowel sounds, soft, nontender, no distension Extremities- s/p amputation of right big and small toe. Right foot erythematous and infected callus seen on plantar aspect. Infected callus seen on Left big toe posterior aspect. Neuro- alert, oriented ; PERRL, no facial palsy; no dysarthria; moves extremities. Results & Data Results & Data Vital Signs (Past 12 Hours) Vital Signs Temp Pulse Resp BP Pulse Ox O2 Del Method 12/13/23 18:09 37.9 C H 127 H 18 106/68 97 Room Air Diagnostic Findings Laboratory Results WBC 17.27 K/ul (4.8-10.8) H 12/13/23 18:47 RBC 4.68 M/uL (4.70-6.10) L 12/13/23 18:47 Hgb 13.8 g/dl (14.0-18.0) L 12/13/23 18:47 Hct 40.7 % (42.0-52.0) L 12/13/23 18:47 MCV 87.0 fL (80.0-100.0) 12/13/23 18:47 MCH 29.5 pg (25.0-34.0) 12/13/23 18:47 MCHC 33.9 g/dL (32.0-36.0) 12/13/23 18:47 RDW Std Deviation 42.1 fL (36.4-46.3) 12/13/23 18:47 RDW Coeff of Gracie 13.2 % (11.5-14.5) 12/13/23 18:47 Plt Count 378 K/uL (130-400) 12/13/23 18:47 MPV 9.3 fL (9.4-12.4) L 12/13/23 18:47 Immature Gran % (Auto) 2.8 % 12/13/23 18:47 Neut % (Auto) 84.3 % 12/13/23 18:47 Lymph % (Auto) 6.4 % 12/13/23 18:47 [place] % (Auto) 5.8 % 12/13/23 18:47 Eos % (Auto) 0.1 % 12/13/23 18:47 Baso % (Auto) 0.6 % 12/13/23 18:47 Neut # (Auto) 14.55 K/uL (1.40-6.50) H 12/13/23 18:47 Lymph # (Auto) 1.11 K/uL (1.20-3.40) L 12/13/23 18:47 [place] # (Auto) 1.01 K/uL (0.11-0.59) H 12/13/23 18:47 Eos # (Auto) 0.01 K/uL (0.00-0.50) 12/13/23 18:47 Baso # (Auto) 0.10 K/uL (0.00-0.20) 12/13/23 18:47 Immature Gran # (Auto) 0.49 K/uL (0.01-0.20) H 12/13/23 18:47 PT 13.7 Seconds (9.0-12.0) H 12/13/23 18:47 INR 1.3 (0.9-1.1) H 12/13/23 18:47 APTT 30 Seconds (21-31) 12/13/23 18:47 PTT Ratio 1.1 12/13/23 18:47 Sodium 125 mmol/L (136-145) L 12/13/23 18:47 Potassium 5.1 mmol/L (3.5-5.1) 12/13/23 18:47 Chloride 95 mmol/L (98-107) L 12/13/23 18:47 Carbon Dioxide 19 mmol/L (21-32) L 12/13/23 18:47 Anion Gap 11 (3-11) 12/13/23 18:47 BUN 26 mg/dl (6-23) H 12/13/23 18:47 Creatinine 1.23 mg/dl (0.6-1.4) 12/13/23 18:47 Est Cr Clr Drug Dosing 72.8 ml/min 12/13/23 18:47 Est GFR ( Amer) 76.1 ml/min 12/13/23 18:47 Est GFR (Non-Af Amer) 65.7 ml/min 12/13/23 18:47 BUN/Creatinine Ratio 21.1 (10-20) H 12/13/23 18:47 Glucose 160 mg/dl (70-99(Fasting)) H 12/13/23 18:47 Lactate 1.7 mmol/L (0.4-2.0) 12/13/23 18:47 Calcium 8.2 mg/dl (8.6-10.3) L 12/13/23 18:47 Total Bilirubin 1.1 mg/dl (0.2-1.0) H 12/13/23 18:47 AST 29 U/L (13-39) 12/13/23 18:47 ALT 39 U/L (7-52) 12/13/23 18:47 Alkaline Phosphatase 163 U/L (34-104) H 12/13/23 18:47 Total Protein 8.2 gm/dl (6.0-8.3) 12/13/23 18:47 Albumin 2.7 gm/dl (3.4-5.0) L 12/13/23 18:47 Globulin 5.5 gm/dl (2.5-4.0) H 12/13/23 18:47 Albumin/Globulin Ratio 0.5 (0.9-2) L 12/13/23 18:47 Procalcitonin 0.70 ng/ml (0-0.5) H 12/13/23 18:47 Adenovirus (PCR) Not Detected (NotDetected) 12/13/23 18:40 B. pertussis DNA (PCR) Not Detected (NotDetected) 12/13/23 18:40 B.parapertussis DNA PCR Not Detected (NotDetected) 12/13/23 18:40 C. pneumoniae DNA (PCR) Not Detected (NotDetected) 12/13/23 18:40 Coronavirus OC43 (PCR) Not Detected (NotDetected) 12/13/23 18:40 Coronavirus HKU1 (PCR) Not Detected (NotDetected) 12/13/23 18:40 Coronavirus 229E (PCR) Not Detected (NotDetected) 12/13/23 18:40 SARS-CoV-2 (PCR) DETECTED (NotDetected) A 12/13/23 18:40 Coronavirus NL63 (PCR) Not Detected (NotDetected) 12/13/23 18:40 Human Metapneumovir PCR Not Detected (NotDetected) 12/13/23 18:40 Influenza Type A (PCR) Not Detected (NotDetected) 12/13/23 18:40 Influenza Type B (PCR) Not Detected (NotDetected) 12/13/23 18:40 M. pneumoniae (PCR) Not Detected (NotDetected) 12/13/23 18:40 Parainfluenza 1 (PCR) Not Detected (NotDetected) 12/13/23 18:40 Parainfluenza 2 (PCR) Not Detected (NotDetected) 12/13/23 18:40 Parainfluenza 3 (PCR) Not Detected (NotDetected) 12/13/23 18:40 Parainfluenza 4 (PCR) Not Detected (NotDetected) 12/13/23 18:40 RSV (PCR) Not Detected (NotDetected) 12/13/23 18:40 Entero/Rhino (PCR) Not Detected (NotDetected) 12/13/23 18:40 ECG Additional Comments: ECG. Sinus tach at a rate of 112. No significant changes found. Code Status & VTE Plan VTE Prophylaxis Plan VTE Prophylaxis will be ordered: Yes
[2023-12-13] MEDS ORDERED: GLUCOSE 10 TAB/TUBE PO PRN (22:53)
[2023-12-13] MEDS ORDERED: VANCOMYCIN HCL 1,000 MG in SODIUM CHLORIDE 0.9% 250 ML IV SCH (22:53)
[2023-12-13] MEDS ORDERED: PHARMACY GLYCEMIC MGMT CONSULT PRN (22:53)
[2023-12-13] MEDS ORDERED: GLUCOSE 40% GEL 15 GM TUBE PO PRN (22:53)
[2023-12-13] MEDS ORDERED: VANCOMYCIN CONSULT ACTIVE PRN (22:53)
[2023-12-13] MEDS ORDERED: NITROGLYCERIN SL 0.4 MG/TAB TAB SL PRN (22:53)
[2023-12-13] MEDS ORDERED: GLUCAGON FOR INJ 1 MG VIAL SQ PRN (22:53)
[2023-12-13] MEDS ORDERED: DEXTROSE 50% 50 ML SYRINGE IV PRN (22:53)
[2023-12-13] MEDS ORDERED: CARBOHYDRATES FOR HYPOGLYCEMIA PO PRN (22:53)
[2023-12-13] MEDS ORDERED: POLYETHYLENE (MIRALAX) 17 GM PACK PO PRN (22:53)
[2023-12-13] MEDS: INSULIN ASPART PER UNIT CHARGE SC SCH ×2 (23:00→23:51)
[2023-12-13] MEDS ORDERED: LANTUS PER UNIT CHARGE SQ SCH (23:00)
[2023-12-13] MEDS: LANTUS PER UNIT CHARGE SQ SCH (23:22)
[2023-12-13] MEDS: ONDANSETRON INJ 2 MG/ML 2 ML VIAL IV PRN (23:22)
[2023-12-13] MEDS: VANCOMYCIN HCL 1,750 MG in SODIUM CHLORIDE 0.9% 500 ML IV ONE (23:51)
[2023-12-14 00:03] LABS: Appearance Urine Clear (Clear); Bacteria Urine Automated None Seen (None Seen); Bilirubin Urine Negative (Negative); Blood Urine Negative (Negative); Color Urine Yellow; Glucose Urine UA 3+ (Negative); Ketones Urine 3+ (Negative); Leukocyte Esterase Urine Negative (Negative); Nitrite Urine Negative (Negative); Protein Urine Trace (Negative); RBC Urine Automated 0-2 /hpf (0-2); Specific Gravity Urine 1.034 (1.000-1.030); Urobilinogen Urine Negative (Negative); WBC Urine Automated 0-5 /hpf (0-5); pH Urine 5.5 (4.5-7.5)
--- OUTSIDE RECORDS SUMMARY | 2023-12-14 01:38 | External Medical Summary | Summary of Care ---
Author Name Unknown Organization [facility] Address [address] [place] [address] Phone [phone] Care Team Providers Care Motor Grader Rough Grade Name Role Phone Unavailable Primary Care Provider Unavailabl e Reason for Visit * Reason Onset Date Comments Appointment 11/30/2023 Colonoscopy Encounter Details Date Type Department Care Team ([facility] st Contact Info) Description 11/30/2023 Telephone Family Medicine [address] [phone] Manuel Pa MD [address] [place] [address] [place] [address] Appointment (Colonoscopy ) Allergies Active Allergy Reactions Criticality Noted Date Comments Penicillins Rash 04/29/2003 documented as of this encounter (statuses as of 12/01/2023) Medications Medication Sig Dispensed Refills Start Date End Date Status metFORMIN HCl ER 500 MG Oral Tablet Extended Release 24 Hour (Glucophage XR) Take 1 Tab by mouth 2 times a day. At hospital discharge 90 Tab 1 11/25/2020 Active Additional Information Patient taking differently: 1,000 mgOral BID (.AM/PM),At hospital discharge, Reported on 07/27/2022 OneTouch Verio In Vitro StripIndications:Typ e 2 diabetes mellitus with hemoglobin A1c goal of less than 7.0% ([facility]) Test 3-4 times a day Dx: E11.9 100 Strip 5 12/12/2020 Active OneTouch Delica Lancets 30GIndications:Type 2 diabetes mellitus with hemoglobin A1c goal of less than 7.0% (HCC) Test BS 3-4 times a day DX: E11.9 100 Each 5 12/12/2020 Active NovoLOG FlexPen 100 UNIT/ML Subcutaneous Solution Pen-injector Three times a day with meals 3 Each 5 01/14/2021 Active Additional Information Patient taking differently: 8 units Three times a day with meals, Reported on 01/19/2021 BD Pen Needle Isa 2nd Gen 32G X 4 MMIndications:Type 2 diabetes mellitus with hemoglobin A1c goal of less than 7.0% (HCC) Use with Basaglar once a day and Novolog 3 times a day Dx: E11.9 120 Each 01/16/2021 Active Basaglar KwikPen 100 UNIT/ML Subcutaneous Solution Pen-injector INJECT 35 UNITS UNDER THE SKIN DAILY. 10 Each 10/06/2021 Active Additional Information Patient taking differently: Indications: currenlty at 27 units, Reported on 04/06/2022 Lisinopril 2.5 MG Oral Tablet (Prinivil) Take 1 Tablet by mouth in the morning. 01/19/2022 Active Aspirin 81 MG Oral Tablet Delayed Release Take 1 Tablet by mouth in the morning. Active Atorvastatin Calcium 20 MG Oral Tablet (Lipitor)Indications :Hyperlipidemia with target LDL less than 100 take one pill by mouth at bedtime 90 Tablet 1 09/19/2023 Active Jardiance 25 MG Oral Tablet Take 1 Tablet by mouth in the morning. 11/13/2023 Active Levothyroxine Sodium 88 MCG Oral Tablet (Levoxyl) Take 1 Tablet by mouth daily first thing in the morning. 10/16/2023 Active Dexcom G7 Sensor Use 1 Device as directed every 10 days. 11/20/2023 Active Cetirizine HCl 10 MG Oral Tablet (ZyrTEC) Take 1 Tablet by mouth in the morning. 08/03/2021 Active documented as of this encounter (statuses as of 12/01/2023) Active Problems Problem Noted Date Diagnosed Date Diabetic peripheral neuropathy 11/30/2023 Acquired hypothyroidism 11/30/2023 Bilateral optic nerve atrophy 08/11/2022 Overview: Cr Amputated toe, right 10/30/2020 Type 2 diabetes mellitus wit h hemoglobin A1c goal of less than 7.0% 03/03/2015 Overview: glucose 304 ICD-10 update of inactive term Hyperlipidemia with target LDL less than 100 Overview: TRIG 436, CHOL 198, HDL 34, HON HDL 164, LDL 111 ICD-10 update of inactive term ADVANCE DIRECTIVE INFORMATION 04/12/2005 Overview: Yes, Patient instructed to provide copy of advance directive for provider to review and to be scanned into Electronic Medical Record documented as of this encounter (statuses as of 12/01/2023) Resolved Problems Problem Noted Date Diagnosed Date Resolved Date Ulcer of right foot, limited to breakdown of skin 04/06/2022 07/27/2022 Acquired absence of other right toe(s) 01/19/2021 01/19/2021 Osteomyelitis of right foot 10/30/2020 01/19/2021 Diabetic ulcer of toe of rig ht foot associated with type 2 diabetes mellitus 10/30/2020 01/19/2021 BMI 33.0-33.9,adult 06/13/2019 04/06/20 22 BMI 31.0-31.9,adult 11/13/19 16 documented as of this encounter (statuses as of 12/01/2023) Immunizations Name Administration Dates Next Due COVID-19 mRNA, LNP-s, No Pre serve, 2-Dose Series ([employer]) 04/23/2021,08/16/2020,07/26/2020 Pneumococcal Conjugate Vacci ne, 20-valent ([id number]) 07/27/2022 Seasonal Influenza, PF, 6 M & above, IM , (FluLaval or Fluzone) 01/27/2023,01/27/2022,01/19/2021 TDAP (age 10 and older)(Boostrix) 12/07/2017 TDAP, Age 7 and older, IM (Adacel) 12/07/2017 Zoster Vaccine Recombinant (Shingrix) 07/18/2023 ,05/19/2023 documented as of this encounter Social History Tobacco Use Types Packs/Day Years Used Date Smoking Tobacco: Never Smokeless Tobacco: Never Alcohol Use Standard Drinks/Week Comments Yes 0 (1 standard drink = 0.6 oz pur e alcohol) rare PHQ-2 Answer Date Recorded PHQ Adult Total Score 0 07/27/2022 Hunger Vital Sign Answer Date Recorded Within the past 12 months, y ou worried that your food would run out before you got the money to buy more. Patient declined Within the past 12 months, t he food you bought just didn't last and you didn't have money to get more. Patient declined Utilities Answer Date Recorded Do you have trouble paying y our heating, water, or electric bill? (Adult - for ages 18 years and over) Not on file 10/25/2023 Is your family able to pay t he heat, water, or electric bill? (Household - for ages 0-17 years) Not on file 10/25/2023 Does your family have access to good internet? (Household - for ages 0-17 years) Not on file 10/25/2023 Social Connections Answer Date Recorded How often do you feel lonely or isolated from those around you? (Adult - for ages 18 years and over) Not on file 10/25/2023 Sex and Gender Information Value Date Recorded Sex Assigned at Not on file Gender Identity Not on file Sexual Orientation Not on file Job Start Date Occupation Industry Not on file Not on file Not on file documented as of this encounter Miscellaneous Notes * Telephone Encounter - Zenaida Cole OSA - 12/01/2023 11:41 AM EDT Called patient to set up colonoscopy. Lmm * Telephone Encounter - Victoria Pino OSA - 11/30/2023 3:15 PM EDT [place] bolivar scheduled for colonoscopy for: Screen for colon cancer [Z12.11] documented in this encounter Plan of Treatment Upcoming Encounters Date Type Department Care Team (Late st Contact Info) Description 08/13/2024 2:00 PM EDT Office Visit Family Medicine [address] [place] [phone] Manuel Pa MD [address] [place] [address] [place] [phone] Scheduled Procedures Name Priority Associated Diagnoses Date/Ti me COLONOSCOPY FLEXIBLE PROXIMAL DIAGNOSTIC Recall History of colon polyps Health Maintenance Due Date Last Done Comments HIV Screening 08/31/1983 Hepatitis C Screening 1986 TSH 1986 Hepatitis B Vaccine (1 of 3 - 19+ 3-dose series) 08/31/1987 Cologuard 2013 Fecal Occult Blood Test 2013 Sigmoidoscopy 2013 B-12 11/18/2017 11/18/2016 Albumin/Creatinine Ratio 11/19/2017 11/19/2016, 03/10 Colonoscopy 09/10/2021 09/10/2020, 09/10/2020 Colorectal Cancer Screening 09/10/2021 Diabetic Foot Exam 10/15/2021 10/15/2020, 0 12/04/2018, 11/21/2017, Additional history exists HbA1c 06/03/2022 12/01/2021, 10/07, 11/18/2016, Additional history exists COVID-19 Vaccine ( season) 2023 04/23/2021, 04/08/2021, 08/16/2020, Additional history exists GFR 07/20/2023 07/19/2022, 10/08, 10/23/2020, Additional history exists Depression Screening 07/28/2023 07/27/2022 Influenza Vaccine (FLU shot) (#1) 2024 01/27/2023, 01/27/2022, 01/19/2021, Additional history exists Diabetic Eye Exam 10/04/2024 10/05/2023, , 02/10/2023, Additional history exists Lipid Panel 07/20/2027 07/19/2022, 10/08, 11/18/2016, Additional history exists DTaP,Tdap,and Td Vaccines (3 - Td or Tdap) 12/08/2027 12/07/2017, 12/07/2017 RETIRED - COLONOSCOPY-ANNUAL AGES 18-100 Discontinued 09/10/2020, 09/10/2020 Pneumococcal Vaccine: Pediatrics (0 to 5 Years) and At-Risk Patients (6 to 64 Years) Completed 07/27/2022 Zoster Vaccines Completed 07/18/2023, 05/19/2023 HPV (Gardasil) Vaccine Aged Out No lo nger eligible based on patient's age to complete this topic MENINGOCOCCAL (MENACTRA/MENVEO) Aged Out No longer eligible based on patient's age to complete this topic documented as of this encounter Medical Devices Not on filedocumented as of this encounter
--- OUTSIDE RECORDS SUMMARY | 2023-12-14 01:39 | External Medical Summary | Summary of Care ---
Author Name Unknown Organization [facility] Address [address] [place] [address] Phone [phone] Care Team Providers Care Transmission Mechanic Name Role Phone Unavailable Primary Care Provider Unavailabl e Reason for Visit * Reason Onset Date Comments Appointment 11/30/2023 Colonoscopy Encounter Details Date Type Department Care Team ([facility] st Contact Info) Description 11/30/2023 Telephone Family Medicine [address] [phone] Manuel Pa MD [address] [place] [address] [place] [address] Appointment (Colonoscopy ) Allergies Active Allergy Reactions Criticality Noted Date Comments Penicillins Rash 04/29/2003 documented as of this encounter (statuses as of 11/30/2023) Medications Medication Sig Dispensed Refills Start Date [...] hemoglobin A1c goal of less than 7.0% ([facility]) Test 3-4 times a day Dx: E11.9 [...] as of this encounter (statuses as of 11/30/2023) Active Problems Problem Noted Date Diagnosed Date [...] as of this encounter (statuses as of 11/30/2023) Resolved Problems Problem Noted Date Diagnosed Date [...] as of this encounter (statuses as of 11/30/2023) Immunizations Name Administration Dates Next Due COVID-19 mRNA, LNP-s, No Pre serve, 2-Dose Series ([employer]) 04/23/2021,08/16/2020,07/26/2020 Pneumococcal Conjugate Vacci ne, 20-valent ([id number]) 07/27/2022 Seasonal Influenza, PF, 6 M & [...] encounter Miscellaneous Notes * Telephone Encounter - Victoria Pino OSA - 11/30/2023 3:15 PM EDT Cale bolivar scheduled for colonoscopy for: Screen for colon cancer [Z12.11] documented in this encounter Plan of Treatment Upcoming Encounters Date Type Department Care Team (Late st Contact Info) Description 08/13/2024 2:00 PM EDT Office Visit Family Medicine [address] [place] [phone] Manuel Pa MD [address] [place] [address] [place] [id number] Scheduled Procedures Name Priority Associated Diagnoses Date/Ti [...] 10/07, 11/18/2016, Additional history exists COVID-19 Vaccine (2022- season) 2023 04/23/2021, 04/08/2021, 08/16/2020, Additional history [...]
--- OUTSIDE RECORDS SUMMARY | 2023-12-14 01:39 | External Medical Summary | Summary of Care ---
Author Name Unknown Organization [facility] Address [address] [place] [address] Phone [phone] Care Team Providers Care Aged Or Disabled Carer Name Role Phone Unavailable Primary Care Provider Unavailabl e Reason for Referral * Ancillary Services (Within 30 days (routine)) - Authorized Specialty Diagnoses / Procedures Referred By Shameka damon Referred To Contact Gastroenterology Diagnoses Screen for colon cancer Manuel Pa MD [address] [place] [address] [place] [phone] Referral ID Status Reason Start Date Expiration Date Visits Requested Visits Authorized [id number] Authorized Ancillary Services Required 11/30/2023 999 999 Question Answer Referral Priority Within 30 days (routine) Where should this appointment be scheduled? [facility] Comments ALERT: Do not order for pediatric patients (18 years or younger). Cancel off screen and order PEDS GASTROENTEROLOGY CONSULT (Type: 1 visit only-Evaluate and Treat) The following Pt. Instructions are available: - Gastro Colonoscopy Prep Instructions [[id number]] - Gastro Colonoscopy Prep Instructions (French Version) [[id number]] Go to the Pt. Instructions section within the Visit Navigator to access. Colonoscopy ASGE Guidelines: Average risk screening (begin at age 50, 10 year intervals) ADDITIONAL INFORMATION 1. Is the patient on Coumadin? No 2. Is the patient on Pradaxa? No Reason for Visit * Reason Comments Re-Check 6 mo Encounter Details Date Type Department Care Team (Latest Contact Info) Description 11/30/2023 3:00 PM EDT Office Visit Family Medicine [address] [place] [phone] Manuel Pa MD [address] [place] [address] [place] [phone] Type 2 diabetes mellitus with hemoglobin A1c goal of less than 7.0% ([facility])*; Hyperlipidemia with target LDL less than 100; History of amputation of toe (HCC); Screen for colon cancer; Screening for depression; Diabetic peripheral neuropathy (HCC); Acquired hypothyroidism Allergies Active Allergy Reactions Criticality Noted Date [...] Reported on 07/27/2022 OneTouch Verio In Vitro StripIndications:T ype 2 diabetes mellitus with hemoglobin A1c goal of less than 7.0% (HCC) Test 3-4 times a day Dx: E11.9 100 Strip 5 12/12/2020 Active OneTouch Delica Lancets 30GIndications:Typ e 2 diabetes mellitus with hemoglobin A1c [...] times a day Dx: E11.9 120 Each 5 01/16/2021 Active Basaglar KwikPen 100 UNIT/ML Subcutaneous Solution Pen-injector INJECT 35 UNITS UNDER THE SKIN DAILY. 10 Each 5 10/06/2021 Active Additional Information Patient taking differently: Indications: currenlty at 27 units, Reported on 04/06/2022 Lisinopril 2.5 MG Oral Tablet (Prinivil) Take 1 Tablet by mouth in the morning. 01/19/2022 Active Aspirin 81 MG Oral Tablet Delayed Release Take 1 Tablet by mouth in the morning. Active Atorvastatin Calcium 20 MG Oral Tablet (Lipitor)Indicatio ns:Hyperlipidemia with target LDL less than 100 take [...] by mouth in the morning. 08/03/2021 Active Ozempic (0.25 or 0.5 MG/DOSE) 2 MG/1.5ML Solution Pen-injector (Semaglutide(0.25 or 0.5MG/DOS)) Inject 0.5 mg under the skin. 4 Discontinue d(Medicatio n List Clean Up) documented as of this encounter (statuses as of 11/30/2023) Active Problems Problem Noted Date Diagnosed Date Diabetic peripheral neuropathy 11/30/2023 Acquired hypothyroidism 11/30/2023 Bilateral optic nerve atrophy 08/11/2022 Overview: [place] Amputated toe, right 10/30/2020 Type 2 diabetes [...] mRNA, LNP-s, No Pre serve, 2-Dose Series (TopChalks) 04/23/2021,08/16/2020,07/26/2020 Pneumococcal Conjugate Vacci ne, 20-valent ([id number]) 07/27/2022 Seasonal Influenza, PF, 6 M & [...] on file documented as of this encounter Last Filed Vital Signs Vital Sign Reading Time Taken Comments Blood Pressure 110/70 11/30/2023 2:41 PM EDT Pulse 86 11/30/2023 2:41 PM EDT Temperature 36.4 C (97.5 F) 11/30/2023 2:41 PM ED T Respiratory Rate - - Oxygen Saturation 96% 11/30/2023 2:41 PM EDT Inhaled Oxygen Concentration - - Weight 98.3 kg (216 lb 12.8 oz) 11/30/2023 2:41 PM EDT Height - - Body Mass Index 33.45 05/19/2023 4:01 PM EST documented in this encounter Progress Notes * Manuel Pa MD - 11/30/2023 2:56 PM EDT Subjective: HPI: Cale Stephens is a 53 year old male with hx of DMII, HLD, Hypothyroidism, Seasonal allergy, R foot toes amputation (2/2 ulcers), neuropathy, retinopathy seen for DMII: - Metformin ER 1000mg BID, Jardiance 25mg daily, Basaglar usually 24 units qhs (but adjusted it depending on the glucose), novolog SS - not taking ozempic ---- due to extreme constipation - follows up with excavating machine operator Pt does not want to do any labs with jaswanter Per pt he gets lab done at [facility] -- all the labs were normal even the hgb --- last A1C per pt was in the 6 Patient Active Problem List Diagnosis ADVANCE DIRECTIVE INFORMATION Type 2 diabetes mellitus with hemoglobin A1c goal of less than 7.0% (HCC) Hyperlipidemia with target LDL less than 100 Amputated toe, right (HCC) Bilateral optic nerve atrophy Diabetic peripheral neuropathy (HCC) Acquired hypothyroidism Current Outpatient Medications Medication Sig Dispense Refill metFORMIN HCl ER 500 MG Oral Tablet Extended Release 24 Hour (Glucophage XR) Take 1 Tab by mouth 2 times a day. At hospital discharge (Patient taking differently: Take 2 Tablets by mouth in the morning and 2 Tablets before bedtime. At hospital discharge.) 90 Tab 1 OneTouch Verio In Vitro Strip Test 3-4 times a day Dx: E11.9 100 Strip 5 OneTouch Delica Lancets 30G Test BS 3-4 times a day DX: E11.9 100 Each 5 NovoLOG FlexPen 100 UNIT/ML Subcutaneous Solution Pen-injector Three times a day with meals (Patient taking differently: 8 units Three times a day with meals) 3 Each 5 BD Pen Needle Isa 2nd Gen 32G X 4 MM Use with Basaglar once a day and Novolog 3 times a day Dx: E11.9 120 Each 5 Basaglar KwikPen 100 UNIT/ML Subcutaneous Solution Pen-injector INJECT 35 UNITS UNDER THE SKIN DAILY. (Patient taking differently: No sig reported) 10 Each 5 Lisinopril 2.5 MG Oral Tablet (Prinivil) Take 1 Tablet by mouth in the morning. Aspirin 81 MG Oral Tablet Delayed Release Take 1 Tablet by mouth in the morning. Atorvastatin Calcium 20 MG Oral Tablet (Lipitor) take one pill by mouth at bedtime 90 Tablet 1 Jardiance 25 MG Oral Tablet Take 1 Tablet by mouth in the morning. Levothyroxine Sodium 88 MCG Oral Tablet (Levoxyl) Take 1 Tablet by mouth daily first thing in the morning. Dexcom G7 Sensor Use 1 Device as directed every 10 days. Cetirizine HCl 10 MG Oral Tablet (ZyrTEC) Take 1 Tablet by mouth in the morning. No current facility-administered medications for this visit. Past Medical History: Diagnosis Date Bilateral optic nerve atrophy 08/11/2022 Cr BMI 34.0-34.9,adult Closed dislocation of shoulder 1990 Disp fx of base of fifth metacarpal bone of right hand w/routine heal 12/2017 DM type 2, goal A1c below 7 03/03/2015 glucose 304 Fracture of radial head, left, closed 12/2017 [facility] Hyperlipidemia LDL goal < 100 03/03/2015 TRIG 436, CHOL 198, HDL 34, HON HDL 164, LDL 111 Subacute osteomyelitis of right foot (HCC) 10/30/2020 Varicella without complication Past Surgical History: Procedure Laterality Date AMPUTATION OF TOE Right 10/17/2020 right big toe for osteomyelitis AMPUTATION OF TOE Right 04/10/2021 amputation right little toe, Dr Rodas AMPUTATION OF TOE Right 08/14/[address] Luna COLONOSCOPY, DIAGNOSTIC (RECTUM) 09/10/2020 2 polyps ascending, 7 mm sigmoid polyp diverticulosis, repeat 1 yr / COLONOSCOPY FLEXIBLE PROXIMAL DIAGNOSTIC performed by Hipolito Mcleod MD at ENDOSCOPY [facility] DENTAL SURGERY PROCEDURE NEC Review of patient's allergies indicates: Allergen Reactions Penicillins Rash Family History Problem Relation Name Age of Onset Endocrine Disorder Father high triglycerides Social History Tobacco Use Smoking status: Never Smokeless tobacco: Never Substance Use Topics Alcohol use: Yes Comment: rare Vaping/E-Cigarette Use Vaping/E-Cigarette Use Never User Vaping/E-Cigarette Substances Vaping/E-Cigarette Devices ROS: -Per HPI OBJECTIVE: BP 110/70 | Pulse 86 | Temp 36.4 C (97.5 F) | Wt 98.3 kg (216 lb 12.8 oz) | SpO2 96% | BMI 33.45 kg/m | BSA 2.16 m PHYSICAL EXAM: Vitals are reviewed General:. NAD, well developed HEENT:. Normal Conjunctiva, EOMI Cardiac:. Normal S1, S2, no murmur Lungs:. CTA, no wheezing or crackles Abd:. soft, ND, NT MSK:. Walks with cane Psych:. AAOx3, normal affect ASSESSMENT/PLAN: I recommended labs but pt refused - stated that he does not want to do any labs here he only wants to do lab with claudia barreto Type 2 diabetes mellitus with hemoglobin A1c goal of less than 7.0% ([facility]) (Primary) - follows up with endo Hyperlipidemia with target LDL less than 100 - on statin - pt refused lipid panel History of amputation of toe (HCC) - wears diabetic shoes Screen for colon cancer - COLONOSCOPY, GI REFERRAL OP Screening for depression - DEPRESSION SCREENING PERFORMED Diabetic peripheral neuropathy (HCC) - stable Acquired hypothyroidism - on levothyroxine Follow Up: Return in about 6 months (around 06/01/2024). Manuel Pa MD Family medicine, [place] [phone] * Deborah Lawson CMA - 11/30/2023 2:44 PM EDT Patient has been verbally educated on the need or importance of Diabetic Foot Exam and Immunizations: covid, hepb and has declined topic(s).Patient is under the care of an orthopedic surgeon for his feet due to previous podiatric issues. documented in this encounter Nursing Notes * Deborah Lawson CMA - 11/30/2023 2:38 PM EDT He is here for a 6 mo recheck today. He was a patient of Dr. Garcia and he is establishing with Dr. Tejada. He is doing well. He did stop his ozempic; he has been having constipation since he's on it. He gets this from endocrinology and plans on discussing this with them. documented in this encounter Plan of Treatment Upcoming Encounters Date Type Department Care Team (Late st Contact Info) Description 08/13/2024 2:00 PM EDT Office Visit Family Medicine [address] [place] [phone] Manuel Pa MD [address] [place] [address] [place] [phone] Scheduled Procedures Name Priority Associated Diagnoses Date/Ti me COLONOSCOPY FLEXIBLE PROXIMAL DIAGNOSTIC Recall History of colon polyps Scheduled Referrals Name Type Priority Associated Diagnoses Orde r Schedule COLONOSCOPY, GI REFERRAL OP Referral Within 30 days (routine) Screen for colon cancer Ordered: 11/30/2023 Health Maintenance Due Date Last Done Comments [...] Not on filedocumented as of this encounter Visit Diagnoses Diagnosis Type 2 diabetes mellitus with hemoglobin A1c goal of less than 7.0% (HCC)- Primary Hyperlipidemia with target LDL less than 100 Other and unspecified hyperlipidemia History of amputation of toe (HCC) Screen for colon cancer Special screening for malignant neoplasms, colon Screening for depression Diabetic peripheral neuropathy (HCC) Type II or unspecified type diabetes mellitus with neurological manifestations, not stated as uncontrolled Acquired hypothyroidism Unspecified hypothyroidism documented in this encounter"
--- OUTSIDE RECORDS SUMMARY | 2023-12-14 01:39 | External Medical Summary | Summary of Care ---
Author Name Unknown Organization [facility] Address [address] [place] [address] Phone [phone] Care Team Providers Care Structural Designer Name Role Phone Unavailable Primary Care Provider Unavailabl e Reason for Visit * Reason Onset Date Comments Medication Refill 09/16/2023 Encounter Details Date Type Department Care Team (Late st Contact Info) Description 09/16/2023 Refill Family Medicine [address] [phone] Manuel Pa MD [address] [place] [address] [place] [address] Hyperlipidemia with target LDL less than 100 Allergies Active Allergy Reactions Criticality Noted Date Comments Penicillins Rash 04/29/2003 documented as of this encounter (statuses as of 09/19/2023) Medications Medication Sig Dispensed Refills Start Date End Date Status metFORMIN HCl ER 500 MG Oral Tablet Extended Release 24 Hour (Glucophage XR) Take 1 Tab by mouth 2 times a day. At hospital discharge 90 Tab 1 11/25/2020 Active Additional Information Patient taking differently: 1,000 mgOral BID (.AM/PM),At hospital discharge, Reported on 07/27/2022 Florence Wyman In Vitro StripIndications:T ype 2 diabetes mellitus with hemoglobin A1c goal of less than 7.0% ([facility]) Test 3-4 times a day Dx: E11.9 100 Strip 5 12/12/2020 Active OneTouch Delica Lancets 30GIndications:Typ e 2 diabetes mellitus with hemoglobin A1c goal of less than 7.0% ([facility]) Test BS 3-4 times a day DX: [...] hemoglobin A1c goal of less than 7.0% ([facility]) Use with Basaglar once a day and Novolog 3 times a day Dx: E11.9 120 Each 01/16/2021 Active Ozempic (0.25 or 0.5 MG/DOSE) 2 MG/1.5ML Solution Pen-injector (Semaglutide(0.25 or 0.5MG/DOS)) Inject 0.5 mg under the skin. 0 Active Basaglar KwikPen 100 UNIT/ML Subcutaneous Solution Pen-injector INJECT 35 UNITS UNDER THE SKIN DAILY. 10 Each 5 10/06/2021 Active Additional Information Patient taking differently: Indications: currenlty at 27 units, Reported on 04/06/2022 Lisinopril 2.5 MG Oral Tablet (Prinivil) Take 1 Tablet by mouth in the morning. 0 01/19/2022 Active Aspirin 81 MG Oral Tablet Delayed Release Take 1 Tablet by mouth in the morning. 0 Active Atorvastatin Calcium 20 MG Oral Tablet (Lipitor)Indicatio ns:Hyperlipidemia with target LDL less than 100 take one pill by mouth at bedtime 90 Tablet 1 09/19/2023 Active Atorvastatin Calcium 20 MG Oral Tablet (Lipitor)Indicatio ns:Hyperlipidemia with target LDL less than 100 TAKE ONE PILL BY MOUTH AT BEDTIME 90 Tablet 1 07/25/2023 Discontinue d(Refill) documented as of this encounter (statuses as of 09/19/2023) Active Problems Problem Noted Date Diagnosed Date Bilateral optic nerve atrophy 08/11/2022 Overview: Cr [...] as of this encounter (statuses as of 09/19/2023) Resolved Problems Problem Noted Date Diagnosed Date [...] as of this encounter (statuses as of 09/19/2023) Immunizations Name Administration Dates Next Due COVID-19 mRNA, LNP-s, No Pre serve, 2-Dose Series (Pfizer) 04/23/2021,08/16/2020,07/26/2020 Pneumococcal Conjugate Vacci ne, 20-valent ([id number]) 07/27/2022 Seasonal Influenza, PF, 6 M & above, IM , (FluLaval or Fluzone) 01/27/2023,01/27/2022,01/19/2021 TDAP (age 10 and older)(Boostrix) 12/07/2017 TDAP (age 11 and older)(Adacel) 12/07/2017 Zoster Vaccine Recombinant (Shingrix) 07/18/2023 ,05/19/2023 [...] have money to get more. Patient declined Sex and Gender Information Value Date Recorded Sex Assigned at Not on file Gender Identity Not on file Sexual Orientation Not on file Job Start Date Occupation Industry Not on file Not on file Not on file documented as of this encounter Miscellaneous Notes * Telephone Encounter - Roney Law, MIKEL - 09/16/2023 10:02 AM EDT Pending Prescriptions: Disp Refills Atorvastatin Calcium 20 MG Oral Tablet (L*90 Tab*1 Sig: take one pill by mouth at bedtime Last Visit: 05/19/2023 (in office), Visit date not found (telemedicine) Next Visit: 11/30/2023 Last date the medication was ordered: [id number] Patient Active Problem List Diagnosis Code ADVANCE DIRECTIVE INFORMATION Type 2 diabetes mellitus with hemoglobin A1c goal of less than 7.0% ([facility]) E11.9 Hyperlipidemia with target LDL less than 100 E78.5 Amputated toe, right ([facility]) S98.131A Bilateral optic nerve atrophy H47.20 Labs: Lab Results Component Value Date/Time CREATININE - [facility] 1.0 10/30/2020 11:59 AM CREATININE - [facility] 0.9 11/18/2016 04:00 PM CREATININE, RANDOM URINE - [facility] 54 11/19/2016 10:41 AM CREATININE-OUTSIDE LAB 1.12 07/19/2022 12:00 AM Lab Results Component Value Date/Time POTASSIUM - [facility] 4.7 10/30/2020 11:59 AM POTASSIUM - [facility] 4.5 11/18/2016 04:00 PM POTASSIUM-OUTSIDE LAB 4.3 07/19/2022 12:00 AM No results found for: "TSH" Lab Results Component Value Date/Time LDL (DIRECT MEASURE)-OUTSIDE LAB 80 07/19/2022 12:00 AM LDL CHOLESTEROL (CALCULATED) - [facility] 42 10/30/2020 11:59 AM LDL CHOLESTEROL (CALCULATED) - [facility] UNINTERPRETABLE RESULT 11/18/2016 04:00 PM LDL CHOLESTEROL (CALCULATED) - [facility] 65 11/15/2015 09:10 AM LDL CHOLESTEROL (DIRECT MEASURE) - [facility] 83 11/18/2016 04:00 PM LDL CHOLESTEROL (DIRECT MEASURE) - [facility] NOT APPLICABLE 11/15/2015 09:10 AM No results found for: "ALT" Hemoglobin AIC Results: Lab Results Component Value Date/Time HEMOGLOBIN A1C - [facility] 9.6 (H) 11/18/2016 04:00 PM HEMOGLOBIN A1C - [facility] 8.7 (H) 11/15/2015 09:10 AM HEMOGLOBIN A1C - [facility] 7.0 (H) 07/26/2015 08:21 AM please refill this med documented in this encounter Plan of Treatment Upcoming Encounters Date Type Department Care Team (Late st Contact Info) Description 11/30/2023 3:00 PM EDT Office Visit Family Medicine [address] [place] [phone] Manuel Pa MD [address] [place] [address] [place] [phone] Scheduled Procedures Name Priority Associated Diagnoses Date/Ti me COLONOSCOPY FLEXIBLE PROXIMAL DIAGNOSTIC Recall History of colon polyps Health Maintenance Due Date Last Done Comments HIV Screening 08/31/1983 Hepatitis C Screening 1986 Hepatitis B (1 of 3 - 19+ 3-dose series) 08/31/1987 Cologuard 2013 Fecal Occult Blood Test 2013 Sigmoidoscopy 2013 B-12 11/18/2017 11/18/2016 Albumin/Creatinine Ratio 11/19/2017 11/19/2016, 03/10 Colonoscopy 09/10/2021 09/10/2020, 09/10/2020 Colorectal Cancer Screening 09/10/2021 Diabetic Foot Exam 10/15/2021 10/15/2020, 0 12/04/2018, 11/21/2017, Additional history exists HbA1c 06/03/2022 12/01/2021, 10/07, 11/18/2016, Additional history exists COVID-19 Vaccine ( - 2022-24 season) 2023 04/23/2021, 04/08/2021, 08/16/2020, Additional history exists GFR 07/20/2023 07/19/2022, 10/08, 10/23/2020, Additional history exists Depression Screening 07/28/2023 07/27/2022 Diabetic Eye Exam 05/11/2024 05/11/2023, , 10/26/2022, Additional history exists Lipid Panel 07/20/2027 07/19/2022, 10/08, 11/18/2016, Additional history exists DTaP,Tdap,and Td Vaccines (3 - Td or Tdap) 12/08/2027 12/07/2017, 12/07/2017 RETIRED - COLONOSCOPY-ANNUAL AGES 18-100 Discontinued 09/10/2020, 09/10/2020 Pneumococcal Vaccine: Pediatrics (0 to 5 Years) and At-Risk Patients (6 to 64 Years) Completed 07/27/2022 Influenza Vaccine (FLU shot) Completed 01/27/2023, 01/27/2022, 01/19/2021, Additional history exists Zoster Vaccines Completed 07/18/2023, 05/19/2023 GARDASIL-HPV IMMUNIZATION SERIES Aged Out No longer eligible based on patient's age to complete this topic MENINGOCOCCAL (MENACTRA/MENVEO) Aged Out No longer eligible based on patient's age to complete this topic documented as of this encounter Medical Devices Not on filedocumented as of this encounter Visit Diagnoses Diagnosis Hyperlipidemia with target LDL less than 100 Other and unspecified hyperlipidemia documented in this encounter
--- OUTSIDE RECORDS SUMMARY | 2023-12-14 01:39 | External Medical Summary | Summary of Care ---
Author Name Unknown Organization [facility] Address [address] [place] [address] Phone [phone] Care Team Providers Care Security Director Name Role Phone Unavailable Primary Care Provider Unavailabl e Encounter Details Date Type Department Care Team (Late st Contact Info) Description 10/07/2023 Orders Only Family Medicine [address] [phone] Manuel Pa MD [address] [place] [address] [place] [address] Allergies Active Allergy Reactions Criticality Noted Date Comments Penicillins Rash 04/29/2003 documented as of this encounter (statuses as of 10/07/2023) Medications Medication Sig Dispensed Refills Start Date End Date Status metFORMIN HCl ER 500 MG Oral Tablet Extended Release 24 Hour (Glucophage XR) Take 1 Tab by mouth 2 times a day. At hospital discharge 90 Tab 1 11/25/2020 Active Additional Information Patient taking differently: 1,000 mgOral BID (.AM/PM),At hospital discharge, Reported on 07/27/2022 Florence Wyman In Vitro StripIndications:Typ e 2 diabetes mellitus with hemoglobin A1c goal of less than 7.0% ([facility]) Test 3-4 times a day Dx: E11.9 100 Strip 5 12/12/2020 Active BrentonTouch [place] Lancets 30GIndications:Type 2 diabetes mellitus with hemoglobin A1c goal of less than 7.0% (HCC) Test BS 3-4 times a day DX: E11.9 100 Each 5 12/12/2020 Active NovoLOG FlexPen 100 UNIT/ML Subcutaneous Solution Pen-injector Three times a day with meals 3 Each 01/14/2021 Active Additional Information Patient taking differently: [...] 0.5MG/DOS)) Inject 0.5 mg under the skin. Active Basaglar KwikPen 100 UNIT/ML Subcutaneous Solution [...] at bedtime 90 Tablet 1 09/19/2023 Active documented as of this encounter (statuses as of 10/07/2023) Active Problems Problem Noted Date Diagnosed Date Bilateral optic nerve atrophy 08/11/2022 Overview: [place] Amputated toe, right 10/30/2020 Type 2 diabetes [...] as of this encounter (statuses as of 10/07/2023) Resolved Problems Problem Noted Date Diagnosed Date [...] as of this encounter (statuses as of 10/07/2023) Immunizations Name Administration Dates Next Due COVID-19 mRNA, LNP-s, No Pre serve, 2-Dose Series (Pfizer) 04/23/2021,08/16/2020,07/26/2020 Pneumococcal Conjugate Vacci ne, 20-valent ([id number]) 07/27/2022 Seasonal Influenza, PF, 6 M & [...] on file documented as of this encounter Plan of Treatment Upcoming Encounters Date Type Department Care Team (Late st Contact Info) Description 11/30/2023 3:00 PM EDT Office Visit Family Medicine [address] [place] [phone] Manuel Pa MD [address] [place] [address] [place] [phone] Scheduled Procedures Name Priority Associated Diagnoses Date/Ti [...] Depression Screening 07/28/2023 07/27/2022 Diabetic Eye Exam 10/06/2024 10/05/2023, , 02/10/2023, Additional history exists Lipid Panel 07/20/2027 07/19/2022, 06/08/2020, 11/18/2016, Additional history exists DTaP,Tdap,and Td Vaccines [...] Not on filedocumented as of this encounter Procedures Procedure Name Priority Date/Time Associated Diagnosis Comments DIABETIC EYE EXAM Routine 10/05/2023 documented in this encounter Results * DIABETIC EYE EXAM (10/05/2023) 10/05/2023 History Per Patient OTHER OUTSIDE LAB (SEE SCANNED REPORT) documented in this encounter
[2023-12-14] MEDS: CEFEPIME 2,000 MG in SYRINGE 0 ML IV SCH (05:49)
[2023-12-14] MEDS: LEVOTHYROXINE SODIUM 88 MCG TABLET PO SCH (05:49)
[2023-12-14 06:04] LABS: Basophils # (auto) 0.12 K/uL (0.00-0.20); Basophils % (auto) 0.7 %; Eosinophils # (auto) 0.03 K/uL (0.00-0.50); Eosinophils % (auto) 0.2 %; Hemoglobin 12.2 g/dl (14.0-18.0); Immature Granulocytes # (auto) 0.59 K/uL (0.01-0.20); Immature Granulocytes % (auto) 3.4 %; Lymphocytes # (auto) 1.74 K/uL (1.20-3.40); Lymphocytes % (auto) 9.9 %; Mean Corpuscular Hemoglobin 29.2 pg (25.0-34.0); Mean Corpuscular Volume 88.5 fL (80.0-100.0); Mean Platelet Volume 9.3 fL (9.4-12.4); Monocytes # (auto) 1.43 K/uL (0.11-0.59); Monocytes % (auto) 8.2 %; Neutrophils # (auto) 13.59 K/uL (1.40-6.50); Neutrophils % (auto) 77.6 %; Platelet Count 355 K/uL (130-400); RDW Coefficient of Variation 13.2 % (11.5-14.5); RDW Standard Deviation 43.3 fL (36.4-46.3); Red Blood Count 4.18 M/uL (4.70-6.10)
[2023-12-14 06:12] LABS: BUN Creatinine Ratio 21.4 (10-20); Calcium 7.6 mg/dl (8.6-10.3); Creatinine Clr Calc Pharmacy 78.3 ml/min; Est GFR (African American) 80.9 ml/min; Est GFR (Non-African American) 69.8 ml/min; Magnesium 1.9 mg/dl (1.7-2.4); Potassium 4.6 mmol/L (3.5-5.1)
--- NOTE | 2023-12-14 07:12 | XRay Report ---
XR foot LT min 3V routine CLINICAL HISTORY: Left great toe wound. COMPARISON: None FINDINGS: Lateral view demonstrates a soft tissue defect consistent with wound overlying the plantar aspect of the interphalangeal joint of the left great toe. There is no bony erosion within the left foot to suggest acute osteomyelitis. Moderate vascular calcification is present. There are no acute f ractures. IMPRESSION: Left first toe wound. No radiographic evidence for acute osteomyelitis. ACT 112: Negative or not required by law. Electronically signed by: Dale Galarza M.D. 12/14/2023 7:10 AM
[2023-12-14 07:24] LABS: Estimated Average Glucose 131 mg/dl; Hemoglobin A1C 6.2 % (4.5-5.6)
--- NOTE | 2023-12-14 07:37 | XRay Report ---
XR foot RT min 3V routine CLINICAL HISTORY: R distal foot wound TECHNIQUE: 3 views of the right foot were obtained. Comparison: Comparison is made to foot radiographs 02/18/2021 FINDINGS: Postsurgical changes of first digit amputation is seen. There is questionable erosion of the second d igit metatarsal head. Degenerative changes are seen. Subcutaneous emphysema and soft tissue swelling are seen. IMPRESSION: Soft tissue swelling subcutaneous emphysema with possible erosion in the second metatarsal head. MRI is a more sensitive modality given lack of recent comparisons. ACT 112: Negative or not required by law. Electronically signed by: Bennett Horn M.D. 12/14/2023 7:35 AM
[2023-12-14] MEDS: ATORVASTATIN 20 MG TAB PO SCH (08:19)
[2023-12-14] MEDS: ASPIRIN 81 MG CHEW PO SCH (08:19)
--- NOTE | 2023-12-14 08:19 | Hospitalist Progress Note ---
Date of Service December 14, 2023 Assessment & Plan (1) Diabetic foot infection: Plan: Pt is a 53-year-old male with past medical history significant for type 2 diabetes, diabetic peripheral neuropathy, hyperlipidemia, hypothyroidism, right toe amputation, bilateral optic nerve atrophy presenting with concern for infection in the Right Foot and in the Left Great Toe. Sepsis Cellulitis on Left great toe Cellulitis of right foot Chronic Wound Diabetic foot infection Sepsis with tachycardia and leukocytosis, infectious source foot wound Lactate 1.7 Bilateral foot xrays noting Left toe wound and right foot cellulitis vs. osteomyelitis MRI both feet pending Right foot Cx pending Blood Cx x1 set pending Podiatry consulted, appreciate recs -planning for transmetatarsal amputation of the right foot and wound debridement of the left foot on 12/14 Continue Vanco and cefepime Continue to monitor COVID Infection Pt testing positive for covid Appears asymptomatic COVID precautions Closely monitor Hyponatremia Sodium 125 on admission Serum osmolality 281, urine osmolality 749 and urine sodium 32 Gentle IV hydration Avoid overcorrection Nephrology consulted, appreciate recs. Recommended/advised the following: -Mild hyponatremia likely related with true NA deficit. -Na is rising at correct rate. -Given this continue NS at 50 ml hr. -keep glucose less than 200 -None of the current meds are likely to cause low Na--can continue all current meds. -NO need of FFR, salt tab or urea. -Daily BMP is enough. Continue to monitor Improving Hyperlipidemia On statin DMII hgba1c of 6.2, well controlled Hold home Jardiance and Ozempic Continue home Lantus and will reduce dose if continue to be n.p.o. Sliding scale Glycemic pharmacy consult Hypertension Holding lisinopril for now in pre-op setting Will monitor Hypothyroidism Continue Synthroid Diet: DMII, NPO after midnight DVT prophylaxis: SCDs pre-op Dispo: will need PT/OT for further recs post-op Admission and Anticipated Discharge Date Admission Date: December 13, 2023 Subjective pt was seen laying in bed, resting comfortably. Denied fevers, chills or night sweats. Review of Systems Review of Systems: All systems reviewed & are unremarkable except as noted in Subjective Physical Exam Physical Exam: General: Alert, oriented. No acute distress Skin: noted open wounds on plantar surface of both feet bilaterally Psych: Appropriate mood and affect Neuro: difficulty with movements in the bed HEENT: NC/AT CV: RRR Resp: Breath sounds clear bilaterally, no increased effort of breathing Abdomen: Soft, nontender Extremities: noted open wounds on plantar surface of both feet bilaterally, note d toe amputations on right foot Results & Data Results & Data Vital Signs (Past 12 Hours) Vital Signs Temp Pulse Pulse Resp BP Pulse Ox O2 Del Method 12/14/23 07:48 37.3 C 92 H 18 111/68 96 Room Air 12/14/23 03:03 37.4 C 101 H 18 112/69 96 Room Air 12/13/23 23:00 37.5 C 104 H 19 118/76 98 Room Air 12/13/23 22:53 100 H 12/13/23 22:40 Room Air 12/13/23 22:16 37.2 C 144/85 H 12/13/23 22:12 102 H 26 H 94 Room Air 12/13/23 22:06 111 H 22 93 12/13/23 21:51 105 H 94 12/13/23 21:42 95 12/13/23 21:36 96 12/13/23 21:21 103 H 24 94 12/13/23 21:00 109 H 96 12/13/23 20:51 108 H 18 98 12/13/23 20:42 107 H 97 12/13/23 20:21 96 Diagnostic Findings Foot X-Ray 12/13/23 18:25 XR foot LT min 3V routine CLINICAL HISTORY: Left great toe wound. COMPARISON: None FINDINGS: Lateral view demonstrates a soft tissue defect consistent with wound overlying the plantar aspect of the interphalangeal joint of the left great toe. There is no bony erosion within the left foot to suggest acute osteomyelitis. Moderate vascular calcification is present. There are no acute fractures. IMPRESSION: Left first toe wound. No radiographic evidence for acute osteomyelitis. ACT 112: Negative or not required by law. Electronically signed by: Dale Galarza M.D. 12/14/2023 7:10 AM Foot X-Ray 12/13/23 18:25 XR foot RT min 3V routine CLINICAL HISTORY: R distal foot wound TECHNIQUE: 3 views of the right foot were obtained. Comparison: Comparison is made to foot radiographs 02/18/2021 FINDINGS: Postsurgical changes of first digit amputation is seen. There is questionable erosion of the second digit metatarsal head. Degenerative changes are seen. Subcutaneous emphysema and soft tissue swelling are seen. IMPRESSION: Soft tissue swelling subcutaneous emphysema with possible erosion in the second metatarsal head. MRI is a more sensitive modality given lack of recent comparisons. ACT 112: Negative or not required by law. Electronically signed by: Bennett Horn M.D. 12/14/2023 7:35 AM
[2023-12-14] MEDS: CETIRIZINE HCL 10 MG TABLET PO PRN (08:20)
--- NOTE | 2023-12-14 08:33 | Pharmacy Report ---
Pharmacy PK ABX Note - Date of Service December 14, 2023 - Assessment and Plan Assessment 53 year old M receiving vancomycin and cefepime for treatment of diabetic foot infection. Blood and foot cultures pending. Renal function stable. Day #2 of antimicrobial therapy. Plan Vancomycin * Loading dose: 1750 mg IV x 1 * Maintenance dose: 1000 mg IV every 12 hours * Regimen is predicted to achieve target AUC/ANA of 400-600 mg/L.hr * Random level tomorrow AM. Pharmacy will continue to follow and will adjust dose/frequency as necessary. Thank you. Pharmacy has transitioned to AUC monitoring for vancomycin. AUC/ANA is the preferred PK/PD target and is associated with decreased risk of nephrotoxicity compared to traditional trough targets.
--- NOTE | 2023-12-14 08:59 | Electrocardiogram Report ---
Test Reason : Blood Pressure : */* mmHG Vent. Rate : 112 BPM Atrial Rate : 112 BPM P-R Int : 138 ms QRS Dur : 92 ms QT Int : 342 ms P-R-T Axes : 28 -17 38 degrees QTcB Int : 466 ms Sinus tachycardia Otherwise normal ECG When compared with ECG of 10-Apr-2021 06:42, No significant change was found Confirmed by Jason Balderrama ([id number]) on 12/14/2023 8:59:27 AM Referred By: NO PCP Confirmed By: Jason aBlderrama
--- NOTE | 2023-12-14 09:44 | Nephrology Consultation ---
Date of Consultation December 14, 2023 Assessment & Plan (1) Hyponatremia: Mild hyponatremia likely related with true NA deficit. Na is rising at correct rate. Given this continue NS at 50 ml hr. keep glucose less than 200 None of the current meds are likely to cause low Na--can continue all current meds. NO need of FFR, salt tab or urea. Daily BMP is enough. (2) Diabetic foot infection: Has long standing h/o this. on Abx currently . monitor drug level closely [place] vancomiccin. . History of Present Illness Reason for Consultation: Hyponatremia Attending Physician: Nanette Lawler MD History of Present Illness 53/M with long standing type 2 diabetes, diabetic peripheral neuropathy, hyperlipidemia, hypothyroidism, right toe amputation, bilateral optic nerve atrophy came to hospital because of Infection in the Right Foot and Also in the Left Great Toe. Wound is wet and draining. For Last 2 Days had Fevers and Rigors and Not Feeling Well. Notes Poor Appetite. Somewhat Nauseous. Denies Any Pain in the Foot. No Runny Nose or Sore Throat. No Cough. No Chest Pain or Shortness of Breath. No Abdominal Pain. Normal Bowel and Bladder Movements. na was 125 on admission. getting NS and now na is 128. Vital signs seems stable. has h/o Slightly low na in past. Not on Thiazides as outpt. ROS--see HPI. 12 systems otherwise negative Physical Exam Physical Exam: General- Not in distress ENT- oropharynx clear Neck- supple, no JVD. Lungs- clear to auscultation no wheezing or crackles Heart- regular rhythm; no murmur, no gallop. Abdomen- normal bowel sounds, soft, nontender, no distension Extremities- s/p amputation of right big and small toe. Right foot erythematous and infected callus seen on plantar aspect. Infected callus seen on Left big toe posterior aspect. Neuro- alert, oriented ; PERRL, no facial palsy; no dysarthria; moves ext remities. Allergies Allergy/AdvReac Type Severity Reaction Status Date / Time Penicillins Allergy Intermediate Hives Verified 12/13/23 20:01 Home Medications Medication Instructions Recorded Confirmed Type atorvastatin 20 mg tablet 20 mg PO QAM 10/15/20 12/13/23 History cetirizine 10 mg tablet (Zyrtec) 10 mg PO HS PRN Allergy Symptoms 08/03/21 12/13/23 History diphenhydramine HCl 25 mg capsule 25 mg PO DAILY PRN Allergy Symptoms 08/03/21 12/13/23 History (Benadryl) blood sugar diagnostic (OneTouch #100 ea 06/20/22 09/13/23 Rx Ultra Test strips) lancets 33 gauge (OneTouch Delica #100 ea 06/20/22 09/13/23 Rx Lancets) blood-glucose meter,continuous #1 ea 09/21/22 09/13/23 Rx (Dexcom G7 Employment Clerk) aspirin 81 mg chewable tablet 81 mg PO DAILY 01/28/23 12/13/23 History metformin 500 mg tablet,extended 1,000 mg (2 x 500 mg) PO BIDM #360 02/25/23 12/13/23 Rx release 24 hr tabs pen needle, diabetic 32 gauge x #400 ea 03/08/23 09/13/23 Rx 5/32" (Pen Needle) lisinopril 2.5 mg tablet 2.5 mg PO DAILY #90 tabs 04/25/23 12/13/23 Rx empagliflozin 25 mg tablet 25 mg PO DAILY #30 tabs 07/20/23 12/13/23 Rx (Jardiance) Dexcom G7 Sensor (blood-glucose #3 ea 09/08/23 09/13/23 Rx sensor) semaglutide 1 mg/dose (4 mg/3 mL) 1 mg (0.75 mL) subcut ONCE #3 mL 09/13/23 12/13/23 Rx subcutaneous pen injector (Ozempic) insulin aspart U-100 100 unit/mL 7 - 8 unit subcut TID 12/13/23 12/13/23 History (3 mL) subcutaneous pen (Novolog FlexPen U-100 Insulin aspart) insulin glargine 100 unit/mL (3 24 - 26 unit subcut HS 12/13/23 12/13/23 History mL) subcutaneous pen (Basaglar KwikPen U-100 Insulin) levothyroxine 88 mcg tablet 88 mcg PO DAILYBB 12/13/23 12/13/23 History Patient History Medical History Osteomyelitis HX (No active issue/open wounds at present) Type 2 diabetes mellitus IDDM Surgical History History of foot surgery RIGHT TOE-04/2021 H/O vascular surgery LEFT GREAT SAPHENOUS VEIN RADIOFREQUENCY ABLATION History of colonoscopy 2020 [place] teeth removed History of tonsillectomy Amputation of right great toe Right great toe amputation (10/17/20): MAC at [facility] Family History Father Diabetes Dyslipidemia Mother Family history of reaction to anesthesia NAUSEA Social History Smoking Status: Never smoker Second Hand Exposure: No; Do You Dip or Chew Tobacco: No; Hx Alcohol Use: No Hx Substance Use: No Preferred Language: Occitan Communication Ability: Effective Grader Patrol Required: No Beliefs That Will Affect Care: None Current Living Situation: Family Current Living Situation Comment: and son 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 WBC is high from infection. renal panel--normal creat. But na low 125 and now rising slowly. urine na 32. UA is very active. PG Care Time/CCT Total # of Minutes Spent Total Time Spent with Patient: Total time spent is greater than 50% in coordination of care (as documented) at patient's floor/unit and/or counseling patient: Coding Level of Care Code 47190 INT INP/OBS CARE 3/75MIN Diagnoses Hyponatremia E87.1 Diabetic foot infection E11.628; L08.9
[2023-12-14] MEDS: VANCOMYCIN HCL 1,000 MG in SODIUM CHLORIDE 0.9% 250 ML IV SCH (10:19)
--- NOTE | 2023-12-14 11:48 | Pharmacy Report ---
Pharmacy Glycemic Short Note 2 - Date of Service December 14, 2023 - Glycemic Short BSG Results (Last 24 hours): 12/13/23 12/13/23 12/14/23 18:47 23:00 05:26 Glucose 160 H 120 H POC Glucose 133 H 109 H 12/14/23 11:21 Glucose POC Glucose 132 H OUTPATIENT ANTIDIABETIC REGIMEN: * empagliflozin 25mg PO daily * Novolog 7-8 units SQ TID * Basaglar 24-26 units SQ HS * metformin 1gm PO BIDM * semaglutide 2mg SQ weekly HbA1C: 6.2% (12/14/23) ASSESSMENT: * Pt is a 53 year old male with a history of DM2 admitted with a diabetic foot infection. On multiple antihyperglycemic agents at home, including insulin. Pharmacy consulted to assist with inpatient glycemic management. BSGs [phone]/dL since admission. Received 15 units of Lantus last night and no bolus insulin since admitted. * Has been NPO- diet ordered this afternoon for lunch. Receiving IV antibiotics. Noted plan for OR tomorrow, 12/14 and NPO @ [place]. * Continue basal/bolus insulin and moderate stress Novolog scale. Reduce basal to 10 units tonight given minimal PO intake and plan for NPO again tonight. PLAN FOR INPATIENT GLYCEMIC CONTROL: * Hold outpatient oral diabetes medications * Basal insulin * Lantus 10 units SQ HS * Bolus insulin * NovoLog per scale ACHS or Q6hrs while NPO * Goal Range: Low 110 mg/dL - High 140 mg/dL * Correction Factor: 25 mg/dL/unit * Nutritional / Prandial insulin per carb ratio of 1 unit per 8 grams CHO consumed
[2023-12-14 11:52] LABS: Calcium 7.6 mg/dl (8.6-10.3); Potassium 4.9 mmol/L (3.5-5.1)
[2023-12-14 11:57] LABS: BUN Creatinine Ratio 20.9 (10-20); Creatinine Clr Calc Pharmacy 83.3 ml/min; Est GFR (African American) 87.1 ml/min; Est GFR (Non-African American) 75.2 ml/min
[2023-12-14] MEDS: INSULIN ASPART PER UNIT CHARGE SC SCH (12:36)
[2023-12-14] MEDS: GADOBUTROL 65ML VIAL IV ONE (18:21)
--- NOTE | 2023-12-14 20:12 | Magnetic Resonance Report ---
Exam(s): MRI RIGHT FOOT W/WO Contrast IV Amt: 9cc gadavist EXAM: MR Right Lower Extremity Without and With Intravenous Contrast, Foot CLINICAL HISTORY: Reason for exam: r/o osteomyelitis. TECHNIQUE: Multiplanar magnetic resonance images of the right foot without and with intravenous contrast. CONTRAST: Patient received 9cc gadavist of IV contrast COMPARISON: Right foot radiographs 12/13/23 FINDINGS: Patient is status post resection of toes 1, 2, and 5. There is a soft tissue ulcer plantar to the first metatarsal head which appears chronic in nature, without surrounding soft tissue edema. First metatarsal head appears to have been partially resected. There is mild reactive edema within the transected margin of the first metatarsal bone without evidence of acute osteomyelitis. There is soft tissue ulceration distal to the second metatarsal head with gas-containing and fluid-containing sinus tract extending to bone. Surrounding soft tissue edema and enhancement is consistent with cellulitis. No drainable soft tissue abscess is visualized in this location. There is T2 hyperintense, T1 hypointense bone marrow signal abnormality within the distal 50% of the second metatarsal bone consistent with acute osteomyelitis. No other foci of osteomyelitis are visualized. There is a rim-enhancing 2.8 x 2.1 x 1.0 cm fluid collection dorsal to the second/third tarsometatarsal joints (series 28, image 24; series 5, image 16), concerning for soft tissue abscess. There is tenosynovitis of the extensor digitorum longus tendon. There are microangiopathic changes within the intrinsic muscles of the foot. There are polyarticular midfoot degenerative changes with mild polyostotic marrow edema within the tarsal bones, likely on a degenerative basis. There is no evidence of acute fracture or dislocation. IMPRESSION: 1. Soft tissue ulcer distal to the second metatarsal head with fluid-and- gas-filled sinus tract extending to bone. 2. Acute osteomyelitis involving the distal 50% of the second metatarsal bone. 3. Soft tissue abscess dorsal to the third tarsometatarsal joint measuring 2.8 x 2.1 x 1.0 cm. 4. Tenosynovitis of the extensor digitorum longus tendon. Electronically signed by: Rodriguez Luong M.D. 12/14/23 20:11 PM
[2023-12-14 20:14] LABS: BUN Creatinine Ratio 20.8 (10-20); Calcium 7.7 mg/dl (8.6-10.3); Creatinine Clr Calc Pharmacy 76.4 ml/min; Est GFR (African American) 78.4 ml/min; Est GFR (Non-African American) 67.7 ml/min; Potassium 4.5 mmol/L (3.5-5.1)
--- NOTE | 2023-12-14 20:17 | Magnetic Resonance Report ---
Exam(s): MRI LEFT FOOT W/WO Contrast IV Amt: 9cc gadavist EXAM: MR Left Lower Extremity Without and With Intravenous Contrast, Foot CLINICAL HISTORY: Reason for exam: r/o osteomeylitus. TECHNIQUE: Multiplanar magnetic resonance images of the left foot without and with intravenous contrast. CONTRAST: Patient received 9cc gadavist of IV contrast COMPARISON: Left foot radiographs 12/13/23 FINDINGS: There is a plantar soft tissue ulcer subjacent to the distal phalanx of the great toe with regional cellulitis. No drainable soft tissue abscess is visible. There is T2 hyperintense bone marrow edema within the first distal phalanx. There is mild non-confluent corresponding T1 signal hypointensity. Bone marrow signal is otherwise within normal limits. There is no fracture or dislocation. There are microangiopathic changes in the intrinsic muscles of the foot. IMPRESSION: 1. Soft tissue ulcer plantar to the first distal phalanx. 2. Marrow signal changes within the first distal phalanx favoring reactive edema over acute osteomyelitis. Clinical correlation and imaging follow-up advised. Electronically signed by: Rodriguez Luong M.D. 12/14/23 20:16 PM
[2023-12-14] MEDS: LANTUS PER UNIT CHARGE SQ SCH (21:10)
--- NOTE | 2023-12-14 22:50 | Podiatry Consultation ---
Date of Consultation December 14, 2023 Assessment & Plan (1) Diabetic foot infection: (2) History of amputation of toe: (3) Osteomyelitis: Laterality: right Osteomyelitis location: foot Osteomyelitis type: other acute Qualified Code(s): M86.171 - Other acute osteomyelitis, right ankle and foot (4) Diabetic foot ulcer: Diabetic foot ulcer location: toe Diabetes mellitus type: type 2 Laterality: right Non-pressure ulcer stage: with necrosis of bone Qualified Code(s): E11.621 - Type 2 diabetes mellitus with foot ulcer; L97.514 - Non- pressure chronic ulcer of other part of right foot with necrosis of bone Plan Patient was examined and evaluated. We discussed at length the etiology and treatment of his bilateral ulcerations. The right is drastically worse than the left and with his history of right digital amputations, at this time, he would benefit more from a transmetatarsal limitation. He is amenable to this. Work on getting this on the schedule for tomorrow. At the same time, the left hallux ulcer is not as bad but does still need sharp debridement. This can be performed at the same time. For now, he can avoid a left hallux amputation though he may still require this if the ulcer fails to heal in the future. We will plan on following up with him prior to surgery for obtaining consent and discussing the procedure answering more questions as needed. Until then, continue with IV antibiotics and local wound care. Thank you for tthe consult, we look forward to helping out with Mr. flores while he remains hospitalized. History of Present Illness Reason for Consultation: Bilateral diabetic foot infections Attending Physician: Nanette Lawler MD Allergies Allergy/AdvReac Type Severity Reaction Status Date / Time Penicillins Allergy Intermediate Hives Verified 12/13/23 20:01 Home Medications Medication Instructions Recorded Confirmed Type atorvastatin 20 mg tablet 20 mg PO QAM 10/15/20 12/13/23 History cetirizine 10 mg tablet (Zyrtec) 10 mg PO HS PRN Allergy Symptoms 08/03/21 12/13/23 History diphenhydramine HCl 25 mg capsule 25 mg PO DAILY PRN Allergy Symptoms 08/03/21 12/13/23 History (Benadryl) blood sugar diagnostic (Five minutesuch #100 ea 06/20/22 09/13/23 Rx Ultra Test strips) lancets 33 gauge (OneTouch Delica #100 ea 06/20/22 09/13/23 Rx Lancets) blood-glucose meter,continuous #1 ea 09/21/22 09/13/23 Rx (Dexcom G7 Abalone Fisherman) aspirin 81 mg chewable tablet 81 mg PO DAILY 01/28/23 12/13/23 History metformin 500 mg tablet,extended 1,000 mg (2 x 500 mg) PO BIDM #360 02/25/23 12/13/23 Rx release 24 hr tabs pen needle, diabetic 32 gauge x #400 ea 03/08/23 09/13/23 Rx 5/32" (Pen Needle) lisinopril 2.5 mg tablet 2.5 mg PO DAILY #90 tabs 04/25/23 12/13/23 Rx empagliflozin 25 mg tablet 25 mg PO DAILY #30 tabs 07/20/23 12/13/23 Rx (Jardiance) Dexcom G7 Sensor (blood-glucose #3 ea 09/08/23 09/13/23 Rx sensor) semaglutide 1 mg/dose (4 mg/3 mL) 1 mg (0.75 mL) subcut ONCE #3 mL 09/13/23 12/13/23 Rx subcutaneous pen injector (Ozempic) insulin aspart U-100 100 unit/mL 7 - 8 unit subcut TID 12/13/23 12/13/23 History (3 mL) subcutaneous pen (Novolog FlexPen U-100 Insulin aspart) insulin glargine 100 unit/mL (3 24 - 26 unit subcut HS 12/13/23 12/13/23 History mL) subcutaneous pen (Basaglar KwikPen U-100 Insulin) levothyroxine 88 mcg tablet 88 mcg PO DAILYBB 12/13/23 12/13/23 History Patient History Medical History Osteomyelitis HX (No active issue/open wounds at present) Type 2 diabetes mellitus IDDM Surgical History History of foot surgery RIGHT TOE-04/2021 H/O vascular surgery LEFT GREAT SAPHENOUS VEIN RADIOFREQUENCY ABLATION History of colonoscopy 2020 [place] teeth removed History of tonsillectomy Amputation of right great toe Right great toe amputation (10/17/20): MAC at 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 Safe at Home: Yes Safety Concerns: Feels Safe At This Time Assistive Devices: Cane Review of Systems Review of Systems: All systems reviewed & are unremarkable except as noted in HPI & below Constitutional: + fever and + fatigue; no chills Eyes: no problem reported Ear, Nose, Mouth, Throat: no problem reported Respiratory: no problem reported Cardiovascular: + edema; no problem reported Gastrointestinal: no nausea, no vomiting and no problem reported Musculoskeletal: no problem reported Integumentary: + skin ulcer, + wounds and + erythema Neurologic: + loss of sensation, + numbness and + pa resthesia; no generalized weakness Psychiatric: no problem reported Physical Exam Physical Exam: Lower extremity focused exam: DP/PT pulses 2/4 bilaterally. CFT is brisk to the digits. Amputations are noted to the first, second, and fifth toes of the right foot. Open ulceration is noted subsecond metatarsal with cellulitis of the foot appreciated. There is edema and erythema of the foot globally. There is malodor noted bilaterally. The left foot has an ulceration underlying the left hallux, at the level of the IPJ. This does not extend to the bone but is dry and well circumscribed. There is no underlying abscess formation palpable to either foot. Both wound beds are 100% fibrotic. Constitutional: WD/WN, vitals as above + ill appearing and + obese Eyes: PERRL, conjunctivae normal, anicteric sclerae ENMT: external ear and nose normal, oropharynx normal Neck: trachea midline, no thyromegaly normal visual inspection Respiratory: normal respiratory effort; no respiratory distress Cardiovascular: Rate/Rhythm: regular rate and regular rhythm Chest (Breasts): Chest: normal inspection of chest Gastrointestinal (Abdomen): Inspection/Auscultation: abdomen normal to inspection Percussion/Palpation: + abdomen tender and abdomen soft Musculoskeletal: no cyanosis or clubbing, extremities motor strength 5/5 Head/Neck/Chest: normocephalic and head atraumatic Extremities: extremities normal to inspection Skin: + ulcer, + induration, + dry skin and + erythema Neurologic: awake; no focal motor deficits Psychiatric: A+Ox3, euthymic affect Results & Data Vital Signs (Past 12 Hours) Vital Signs Temp Pulse Pulse Resp BP Pulse Ox O2 Del Method 12/14/23 22:35 91 H 12/14/23 19:37 36.7 C 92 H 18 135/76 97 Room Air 12/14/23 15:37 37.3 C 85 18 100/61 96 Room Air 12/14/23 14:00 88 12/14/23 11:39 37.5 C 88 20 118/73 95 Room Air Diagnostic Findings Radiographs obtained and 3 views of the bilateral foot reveal soft tissue gas of the right second metatarsal and likely reactive changes consistent with osteomyelitis of the second metatarsal ulceration. The left hallux reveals no associated bone changes on plain film imaging. MRI was pending at the time of this exam.
[2023-12-15 06:08] LABS: Basophils # (auto) 0.12 K/uL (0.00-0.20); Basophils % (auto) 0.7 %; Eosinophils # (auto) 0.14 K/uL (0.00-0.50); Eosinophils % (auto) 0.8 %; Hematocrit (blood only) 36.1 % (42.0-52.0); Hemoglobin 11.9 g/dl (14.0-18.0); Immature Granulocytes # (auto) 0.58 K/uL (0.01-0.20); Immature Granulocytes % (auto) 3.5 %; Lymphocytes # (auto) 1.62 K/uL (1.20-3.40); Lymphocytes % (auto) 9.8 %; Mean Corpuscular Hemoglobin 29.3 pg (25.0-34.0); Mean Corpuscular Volume 88.9 fL (80.0-100.0); Mean Platelet Volume 9.4 fL (9.4-12.4); Monocytes # (auto) 1.57 K/uL (0.11-0.59); Monocytes % (auto) 9.5 %; Neutrophils # (auto) 12.46 K/uL (1.40-6.50); Neutrophils % (auto) 75.7 %; Platelet Count 351 K/uL (130-400); RDW Coefficient of Variation 13.6 % (11.5-14.5); RDW Standard Deviation 44.5 fL (36.4-46.3); Red Blood Count 4.06 M/uL (4.70-6.10); White Blood Count 16.49 K/ul (4.8-10.8)
[2023-12-15 09:22] LABS: Albumin Level 2.2 gm/dl (3.4-5.0); Bilirubin,Total 0.7 mg/dl (0.2-1.0); Calcium 7.5 mg/dl (8.6-10.3); Magnesium 1.9 mg/dl (1.7-2.4); Potassium 4.3 mmol/L (3.5-5.1)
[2023-12-15 09:28] LABS: Albumin Globulin Ratio 0.5 (0.9-2); BUN Creatinine Ratio 21.2 (10-20); Creatinine Clr Calc Pharmacy 88.4 ml/min; Est GFR (African American) 93.2 ml/min; Est GFR (Non-African American) 80.5 ml/min; Globulin 4.7 gm/dl (2.5-4.0); Phosphorus 3.3 mg/dl (2.5-4.9); Total Protein 6.9 gm/dl (6.0-8.3)
--- NOTE | 2023-12-15 09:50 | Pharmacy Report ---
Pharmacy PK ABX Note - Date of Service December 15, 2023 - Assessment and Plan Assessment 12/14 * Random level this AM 14.8 mcg/mL- predicts 470 mg/L.hr at steady state with 85% probability. MRI shows acute osteomyelitis. Foot culture with [place] growth, reincubating. Given osteo will target > 500-600 mg/L.hr range to ensure adequate treatment. Will increase dose today. 12/13 53 year old M receiving vancomycin and cefepime for treatment of diabetic foot infection. Blood and foot cultures pending. Renal function stable. Day #2 of antimicrobial therapy. Plan Vancomycin * Loading dose: 1750 mg IV x 1 * Maintenance dose: 1000 mg IV every 12 hours * Adjust dose to: 1250 mg IV every 12 hours * Regimen is predicted to achieve target AUC/ANA of 400-600 mg/L.hr * Random level 12/16 with AM labs Pharmacy will continue to follow and will adjust dose/frequency as necessary. Thank you. Pharmacy has transitioned to AUC monitoring for vancomycin. AUC/ANA is the preferred PK/PD target and is associated with decreased risk of nephrotoxicity compared to traditional trough targets.
--- NOTE | 2023-12-15 10:19 | Nephrology Progress Note ---
Date of Service December 15, 2023 Assessment & Plan Admission and Anticipated Discharge Date Admission Date: December 13, 2023 Subjective Assessment & Plan (1) Hyponatremia: Mild hyponatremia likely related with true NA deficit. Na is rising at correct rate but seems like stuck in 129 now. Check urine osm and urine na. start FFR 1500 ml per day keep glucose less than 200 None of the current meds are likely to cause low Na--can continue all current meds. (2) Diabetic foot infection: Has long standing h/o this. on Abx currently . monitor drug level closely [place] vancomycin. . S--no new issues. vital signs are fine. eating fine Physical Exam Physical Exam: General- Not in distress ENT- oropharynx clear Neck- supple, no JVD. Lungs- clear to auscultation no wheezing or crackles Heart- regular rhythm; no murmur, no gallop. Abdomen- normal bowel sounds, soft, nontender, no distension Extremities- s/p amputation of right big and small toe. Right foot erythematous and infected callus seen on plantar aspect. Infected callus seen on Left big toe posterior aspect. Neuro- alert, oriented ; PERRL, no facial palsy; no dysarthria; moves extremities. Results & Data Vital Signs (Past 12 Hours) Vital Signs Temp Pulse Pulse Resp BP Pulse Ox O2 Del Method 12/15/23 08:00 79 12/15/23 07:47 37.8 C H 84 18 112/70 94 Room Air 12/15/23 03:45 37.5 C 92 H 18 120/69 95 Room Air 12/14/23 23:08 36.5 C 101 H 18 109/60 95 Room Air 12/14/23 22:35 91 H
[2023-12-15] MEDS: D5W AND NSS 1,000 ML IV SCH (10:33)
[2023-12-15] MEDS: LACTATED RINGER'S 1,000 ML IV SCH (11:23)
[2023-12-15] MEDS: CALCIUM GLUCONATE 1,000 MG/60 ML BAG IV SCH (11:32)
--- NOTE | 2023-12-15 11:32 | Anesthesiology Consultation ---
Date of Service December 15, 2023 Assessment & Plan (1) Diabetic peripheral neuropathy associated with type 2 diabetes mellitus: Chart Review Chart Review: Acceptable Risk for Surgery History Surgery Operation Date: 12/15/23 12:00 Proposed Procedures p Right Foot Transmetatarsal Amputation - Dmitry Hartman DPM s Left Foot Wound Debridement - Dmitry Hartman DPM Height/Weight Height: 5 ft 7 in Weight: 95.6 kg Allergies Allergy/AdvReac Type Severity Reaction Status Date / Time Penicillins Allergy Intermediate Hives Verified 12/13/23 20:01 Medications Home Medications Medication Instructions Recorded Confirmed Last Taken atorvastatin 20 mg tablet 20 mg PO QAM 10/15/20 12/13/23 12/12/23 cetirizine 10 mg tablet (Zyrtec) 10 mg PO HS PRN Allergy Symptoms 08/03/21 12/13/23 08/13/21 19:00 diphenhydramine HCl 25 mg capsule 25 mg PO DAILY PRN Allergy Symptoms 08/03/21 12/13/23 08/10/21 (Benadryl) blood sugar diagnostic (OneTouch #100 ea 06/20/22 09/13/23 Unknown Ultra Test strips) lancets 33 gauge (OneTouch Delica #100 ea 06/20/22 09/13/23 Unknown Lancets) blood-glucose meter,continuous #1 ea 09/21/22 09/13/23 Unknown (Dexcom G7 Salad Maker) aspirin 81 mg chewable tablet 81 mg PO DAILY 01/28/23 12/13/23 12/12/23 metformin 500 mg tablet,extended 1,000 mg (2 x 500 mg) PO BIDM #360 02/25/23 12/13/23 12/12/23 release 24 hr tabs pen needle, diabetic 32 gauge x #400 ea 03/08/23 09/13/23 Unknown 32" (Pen Needle) lisinopril 2.5 mg tablet 2.5 mg PO DAILY #90 tabs 04/25/23 12/13/23 12/12/23 empagliflozin 25 mg tablet 25 mg PO DAILY #30 tabs 07/20/23 12/13/23 12/12/23 (Jardiance) Dexcom G7 Sensor (blood-glucose #3 ea 09/08/23 09/13/23 Unknown sensor) semaglutide 1 mg/dose (4 mg/3 mL) 1 mg (0.75 mL) subcut ONCE #3 mL 09/13/23 12/13/23 Unknown subcutaneous pen injector (Ozempic) insulin aspart U-100 100 unit/mL 7 - 8 unit subcut TID 12/13/23 12/13/23 12/12/23 (3 mL) subcutaneous pen (Novolog FlexPen U-100 Insulin aspart) insulin glargine 100 unit/mL (3 24 - 26 unit subcut HS 12/13/23 12/13/23 12/12/23 mL) subcutaneous pen (Basaglar KwikPen U-100 Insulin) levothyroxine 88 mcg tablet 88 mcg PO DAILYBB 12/13/23 12/13/23 12/12/23 Active Medications Generic Name Dose Route Start Last Admin Trade Name Freq PRN Reason Stop Dose Admin Aspirin 81 mg 12/14/23 09:00 12/15/23 10:43 Aspirin 81 Mg Chew PO 01/13/24 08:59 Not Given DAILY MELE Atorvastatin Calcium 20 mg 12/14/23 09:00 12/15/23 10:43 Atorvastatin 20 Mg Tab PO 01/13/24 08:59 Not Given QAM MELE Cetirizine HCl 10 mg 12/13/23 22:53 12/14/23 08:20 Cetirizine Hcl 10 Mg Tablet PO 01/12/24 22:52 10 mg HS PRN Administration Allergy Symptoms Cefepime HCl 2,000 mg/ Syringe 20 mls @ 5 mls/min 12/14/23 06:00 12/15/23 06:21 IV 12/21/23 05:59 5 mls/min Q12H MELE Administration Protocol Vancomycin HCl 1,000 mg/ 270 mls @ 200 mls/hr 12/14/23 10:00 12/15/23 10:32 Sodium Chloride IV 12/15/23 13:00 200 mls/hr Q12H MELE Administration Dextrose/Sodium Chloride 1,000 mls @ 80 mls/hr 12/15/23 10:15 12/15/23 11:27 D5w And Nss IV 01/14/24 10:14 0 mls/hr .[id number] MELE Infusion Lactated Ringer's 1,000 mls @ 15 mls/hr 12/15/23 11:00 12/15/23 11:23 Lr IV 01/14/24 10:59 15 mls/hr .Q24H MELE Administration Insulin Aspart 0 units 12/14/23 11:30 12/15/23 07:55 Insulin Aspart Per Unit Charge SC 01/13/24 11:29 Not Given ACHS MELE Insulin Glargine 10 units 12/14/23 21:00 12/14/23 21:10 Lantus Per Unit Charge SQ 01/12/24 23:14 10 units HS MELE Administration Levothyroxine Sodium 88 mcg 12/14/23 06:30 12/15/23 06:20 Levothyroxine Sodium 88 Mcg Tablet PO 01/13/24 06:29 88 mcg DAILYBB MELE Administration Ondansetron HCl 4 mg 12/13/23 22:53 12/13/23 23:22 Ondansetron Inj 2 Mg/Ml 2 Ml Vial IV 01/12/24 22:52 4 mg Q6H PRN Administration Nausea NPO Date Last Intake of Fluids: 12/15/23 Time Last Intake of Fluids: 06:00 Date Last Intake of Solids: 12/14/23 Time Last Intake of Solids: 19:00 Past Medical History Medical History (Updated 12/15/23 @ 11:30 by Chace Farnsworth MD) Hyponatremia Persistent microalbuminuria associated with type 2 diabetes mellitus Proliferative diabetic retinopathy associated with type 2 diabetes mellitus Toe osteomyelitis, right Diabetic foot ulcer Type 2 diabetes mellitus IDDM Past Family History Family History Father Diabetes Dyslipidemia Mother Family history of reaction to anesthesia NAUSEA Past Surgical History Surgical History Status post partial amputation of foot History of foot surgery RIGHT TOE-04/2021 H/O vascular surgery LEFT GREAT SAPHENOUS VEIN RADIOFREQUENCY ABLATION History of colonoscopy 2020 [place] teeth removed History of tonsillectomy Amputation of right great toe Right great toe amputation (10/17/20): MAC at [facility] Social History Smoking Status: Never smoker Do You Dip or Chew Tobacco: No Hx Alcohol Use: No Hx Substance Use: No substance use type: does not use Physical Exam Vital Signs Last Vital Signs Temp 37.8 C H 12/15/23 11:13 Pulse 84 12/15/23 11:13 Resp 20 12/15/23 11:13 BP 110/63 12/15/23 11:13 Pulse Ox 96 12/15/23 11:13 O2 Del Method Room Air 12/15/23 11:13 Testing Laboratory Results 12/15/23 05:17 12/15/23 05:17 PT 13.7 Seconds (9.0-12.0) H 12/13/23 18:47 INR 1.3 (0.9-1.1) H 12/13/23 18:47 APTT 30 Seconds (21-31) 12/13/23 18:47 Hemoglobin A1c 6.2 % (4.5-5.6) H 12/14/23 05:26 Urine Color Yellow 12/13/23 23:30 Urine Appearance Clear (Clear) 12/13/23 23:30 Urine pH 5.5 (4.5-7.5) 12/13/23 23:30 Ur Specific Orange 1.034 (1.000-1.030) H 12/13/23 23:30 Urine Protein Trace (Negative) H 12/13/23 23:30 Urine Glucose (UA) 3+ (Negative) H 12/13/23 23:30 Urine Ketones 3+ (Negative) H 12/13/23 23:30 Urine Nitrite Negative (Negative) 12/13/23 23:30 Ur Leukocyte Esterase Negative (Negative) 12/13/23 23:30 Urine WBC (Auto) 0-5 /hpf (0-5) 12/13/23 23:30 Urine RBC (Auto) 0-2 /hpf (0-2) 12/13/23 23:30 U Hyaline Cast (Auto) 3-5 /lpf (0-2) H 12/13/23 23:30 U Epithel Cells (Auto) 3-5 /hpf (0-2) H 12/13/23 23:30 Urine Bacteria (Auto) None Seen (None Seen) 12/13/23 23:30 12/13/23 18:35 Aerobic Blood Culture - Preliminary Blood No growth in Aerobic bottle after 24 hours. Anaerobic Blood Culture - Final 12/13/23 18:22 Gram Stain - Final Foot,Right Aerobic and Anaerobic Culture - Preliminary Pin-point growth present, reincubating. 12/15/23 12/15/23 12/15/23 11:15 09:57 06:24 POC Glucose 90 72 76 covid positive Electrocardiogram Date: 12/13/23 Findings: + ST @ (112)
--- NOTE | 2023-12-15 11:41 | History & Physical Bridge Note ---
Date of Service December 15, 2023 History & Physical Bridge Note I have examined the patient, reviewed the History & Physical and in the interval since the performance of the History & Physical I have noted the following changes of clinical significance: no changes noted. MRI confirms bone involvement to right foot and likely no OM to left hallux. Plan unchanged; Right TMA, left wound debridement. All questions answered. Consent obtained
[2023-12-15] MEDS ORDERED: LIDOCAINE 2% 2 ML VIAL/AMP(20MG/ML) INFIL ONE (11:58)
[2023-12-15] MEDS ORDERED: PROPOFOL IV EMULSION 10 MG/ML 20 ML VIAL IV ONE ×2 (11:58→13:14)
[2023-12-15] MEDS ORDERED: fentaNYL citrate PF 100 MCG/2 ML VIAL ONE (11:59)
[2023-12-15] MEDS ORDERED: MIDAZOLAM HCL 1 MG/ML 2ML VIAL ONE (11:59)
[2023-12-15] MEDS ORDERED: ONDANSETRON INJ 2 MG/ML 2 ML VIAL IV PRN (12:16)
[2023-12-15] MEDS ORDERED: fentaNYL citrate PF 100 MCG/2 ML VIAL IV PRN (12:16)
[2023-12-15] MEDS ORDERED: ATROPINE SULFATE 0.1 MG/ML 10ML SYR IV PRN (12:16)
[2023-12-15] MEDS ORDERED: KETOROLAC 30 MG/ML VIAL IV PRN (12:16)
[2023-12-15] MEDS: BUPIVACAINE 0.5 % 5 MG/1 ML MPF 30ML VIAL ONE (12:41)
--- NOTE | 2023-12-15 12:51 | Hospitalist Progress Note ---
Date of Service December 15, 2023 Assessment & Plan (1) Diabetic foot infection: Plan: Pt is a 53-year-old male with past medical history significant for type 2 diabetes, diabetic peripheral neuropathy, hyperlipidemia, hypothyroidism, right toe amputation, bilateral optic nerve atrophy presenting with concern for infection in the Right Foot and in the Left Great Toe. Sepsis Cellulitis on Left great toe Cellulitis of right foot Chronic Wound Diabetic foot infection Sepsis with tachycardia and leukocytosis, infectious source foot wound Lactate 1.7 Bilateral foot xrays noting Left toe wound and right foot cellulitis vs. osteomyelitis MRI both feet ordered -MRI right foot with osteomyelitis, abscess, tenosynovitis -MRI left foot noting soft tissue ulcer plantar to the first distal phalanx. Possible reactive edema vs. acute osteomyelitis. Right foot Cx NGTD Blood Cx x1 set NGTD Podiatry consulted, appreciate recs -planning for transmetatarsal amputation of the right foot and wound debridement of the left foot on 12/14 Continue Vanco and cefepime Continue to monitor COVID Infection Pt testing positive for covid Appears asymptomatic COVID precautions Closely monitor Hyponatremia Sodium 125 on admission Serum osmolality 281, urine osmolality 749 and urine sodium 32 Gentle IV hydration Avoid overcorrection Nephrology consulted, appreciate recs. Recommended/advised the following: "Na is rising at correct rate but seems like stuck in 129 now. Check urine osm and urine na. start FFR 1500 ml per day keep glucose less than 200 None of the current meds are likely to cause low Na--can continue all current meds." Continue to monitor Improving Hypocalcemia Replete as needed Hyperlipidemia On statin DMII hgba1c of 6.2, well controlled Hold home Jardiance and Ozempic Continue home Lantus and will reduce dose if continue to be n.p.o. Sliding scale Glycemic pharmacy consult Hypertension Holding lisinopril for now in pre-op setting Will monitor Hypothyroidism Continue Synthroid Diet: DMII, NPO after midnight DVT prophylaxis: SCDs pre-op Dispo: will need PT/OT for further recs post-op Admission and Anticipated Discharge Date Admission Date: December 13, 2023 Subjective pt was seen before his surgery. Denied acute concerns. Discussion of MRI results and right foot noting osteomyelitis and abscess. States he understands that he will be having a right transmetatarsal amputation and what that means. Agreeable. Review of Systems Review of Systems: All systems reviewed & are unremarkable except as noted in Subjective Physical Exam Physical Exam: General: Alert, oriented. No acute distress Skin: noted open wounds on plantar surface of both feet bilaterally Psych: Appropriate mood and affect Neuro: difficulty with movements in the bed HEENT: NC/AT CV: RRR Resp: Breath sounds clear bilaterally, no increased effort of breathing Abdomen: Soft, nontender Extremities: noted open wounds on plantar surface of both feet bilaterally, noted toe amputations on right foot Results & Data Results & Data Vital Signs (Past 12 Hours) Vital Signs Temp Pulse Pulse Resp BP Pulse Ox O2 Del Method 12/15/23 11:13 37.8 C H 84 20 110/63 96 Room Air 12/15/23 08:00 79 12/15/23 07:47 37.8 C H 84 18 112/70 94 Room Air 12/15/23 03:45 37.5 C 92 H 18 120/69 95 Room Air Diagnostic Findings Foot X-Ray 12/13/23 18:25 XR foot LT min 3V routine CLINICAL HISTORY: Left great toe wound. COMPARISON: None FINDINGS: Lateral view demonstrates a soft tissue defect consistent with wound overlying the plantar aspect of the interphalangeal joint of the left great toe. There is no bony erosion within the left foot to suggest acute osteomyelitis. Moderate vascular calcification is present. There are no acute fractures. IMPRESSION: Left first toe wound. No radiographic evidence for acute osteomyelitis. ACT 112: Negative or not required by law. Electronically signed by: Dale Galarza M.D. 12/14/2023 7:10 AM Foot X-Ray 12/13/23 18:25 XR foot RT min 3V routine CLINICAL HISTORY: R distal foot wound TECHNIQUE: 3 views of the right foot were obtained. Comparison: Comparison is made to foot radiographs 02/18/2021 FINDINGS: Postsurgical changes of first digit amputation is seen. There is questionable erosion of the second digit metatarsal head. Degenerative changes are seen. Subcutaneous emphysema and soft tissue swelling are seen. IMPRESSION: Soft tissue swelling subcutaneous emphysema with possible erosion in the second metatarsal head. MRI is a more sensitive modality given lack of recent comparisons. ACT 112: Negative or not required by law. Electronically signed by: Bennett Horn M.D. 12/14/2023 7:35 AM Foot MRI 12/14/23 10:30 Exam(s): MRI LEFT FOOT W/WO Contrast IV Amt: 9cc gadavist EXAM: MR Left Lower Extremity Without and With Intravenous Contrast, Foot CLINICAL HISTORY: Reason for exam: r/o osteomeylitus. TECHNIQUE: Multiplanar magnetic resonance images of the left foot without and with intravenous contrast. CONTRAST: Patient received 9cc gadavist of IV contrast COMPARISON: Left foot radiographs 12/13/23 FINDINGS: There is a plantar soft tissue ulcer subjacent to the distal phalanx of the great toe with regional cellulitis. No drainable soft tissue abscess is visible. There is T2 hyperintense bone marrow edema within the first distal phalanx. There is mild non-confluent corresponding T1 signal hypointensity. Bone marrow signal is otherwise within normal limits. There is no fracture or dislocation. There are microangiopathic changes in the intrinsic muscles of the foot. IMPRESSION: 1. Soft tissue ulcer plantar to the first distal phalanx. 2. Marrow signal changes within the first distal phalanx favoring reactive edema over acute osteomyelitis. Clinical correlation and imaging follow-up advised. Electronically signed by: Rodriguez Luong M.D. 12/14/23 20:16 PM Foot MRI 12/14/23 10:30 Exam(s): MRI RIGHT FOOT W/WO Contrast IV Amt: 9cc gadavist EXAM: MR Right Lower Extremity Without and With Intravenous Contrast, Foot CLINICAL HISTORY: Reason for exam: r/o osteomyelitis. TECHNIQUE: Multiplanar magnetic resonance images of the right foot without and with intravenous contrast. CONTRAST: Patient received 9cc gadavist of IV contrast COMPARISON: Right foot radiographs 12/13/23 FINDINGS: Patient is status post resection of toes 1, 2, and 5. There is a soft tissue ulcer plantar to the first metatarsal head which appears chronic in nature, without surrounding soft tissue edema. First metatarsal head appears to have been partially resected. There is mild reactive edema within the transected margin of the first metatarsal bone without evidence of acute osteomyelitis. There is soft tissue ulceration distal to the second metatarsal head with gas-containing and fluid-containing sinus tract extending to bone. Surrounding soft tissue edema and enhancement is consistent with cellulitis. No drainable soft tissue abscess is visualized in this location. There is T2 hyperintense, T1 hypointense bone marrow signal abnormality within the distal 50% of the second metatarsal bone consistent with acute osteomyelitis. No other foci of osteomyelitis are visualized. There is a rim-enhancing 2.8 x 2.1 x 1.0 cm fluid collection dorsal to the second/third tarsometatarsal joints (series 28, image 24; series 5, image 16), concerning for soft tissue abscess. There is tenosynovitis of the extensor digitorum longus tendon. There are microangiopathic changes within the intrinsic muscles of the foot. There are polyarticular midfoot degenerative changes with mild polyostotic marrow edema within the tarsal bones, likely on a degenerative basis. There is no evidence of acute fracture or dislocation. IMPRESSION: 1. Soft tissue ulcer distal to the second metatarsal head with fluid-and- gas-filled sinus tract extending to bone. 2. Acute osteomyelitis involving the distal 50% of the second metatarsal bone. 3. Soft tissue abscess dorsal to the third tarsometatarsal joint measuring 2.8 x 2.1 x 1.0 cm. 4. Tenosynovitis of the extensor digitorum longus tendon. Electronically signed by: Rodriguez Luong M.D. 12/14/23 20:11 PM
[2023-12-15] MEDS ORDERED: ONDANSETRON INJ 2 MG/ML 2 ML VIAL ONE (13:14)
--- NOTE | 2023-12-15 13:33 | Post Operative Brief Note ---
Immediate Post Op Note Date of Surgery December 15, 2023 Pre & Post Diagnosis Operation Date: 12/15/23 12:00 Pre-Op Diagnosis: diabetic foot infection Post-Op Diagnosis: diabetic foot infection I identified the patient and participated in the time-out.: Yes Procedure Operation Date: 12/15/23 12:00 Actual Procedures p Right Foot Transmetatarsal Amputation(Right) - Dmitry Hartman DPM s Left Foot Wound Debridement(Left) - Dmitry Hartman DPM Surgeon Dmitry Hartman DPM Clinical Trial Educator None Estimated Blood Loss 5 Findings Consistent with Post-Op Diagnosis Specimens Left hallux soft tissue culture Right second metatarsal bone culture Right second metatarsal proximal margin Right forefoot pathology Anesthesia Type MAC Complications none Disposition Accompanied Patient To Recovery: Yes Disposition: Recovery Room
--- NOTE | 2023-12-15 13:48 | Anesthesiology Progress Note ---
Date of Service December 15, 2023 Anesthesia Post Procedure Vital Signs Vital Signs: Temp Pulse Pulse Resp BP Pulse Ox O2 Del Method 12/15/23 11:13 37.8 C H 84 20 110/63 96 Room Air 12/15/23 08:00 79 12/15/23 07:47 37.8 C H 84 18 112/70 94 Room Air 12/15/23 03:45 37.5 C 92 H 18 120/69 95 Room Air 12/14/23 23:08 36.5 C 101 H 18 109/60 95 Room Air 12/14/23 22:35 91 H 12/14/23 19:37 36.7 C 92 H 18 135/76 97 Room Air 12/14/23 15:37 37.3 C 85 18 100/61 96 Room Air 12/14/23 14:00 88 Transfer of Care Handoff Completed per policy Notes Mental Status: alert / awake / arousable Patient Amnestic to Procedure: Yes Nausea / Vomiting: adequately controlled Pain: adequately controlled Airway Patency, RR, SpO2: stable & adequate BP & HR: stable & adequate Hydration State: stable & adequate Anesthetic Complications: no major complications apparent
--- NOTE | 2023-12-15 14:10 | Pharmacy Report ---
Pharmacy Glycemic Short Note 2 - Date of Service December 15, 2023 - Glycemic Short BSG Results (Last 24 hours): 12/14/23 12/14/23 12/14/23 16:06 19:42 20:22 Glucose 129 H POC Glucose 110 H 150 H 12/15/23 12/15/23 12/15/23 05:17 06:24 09:57 Glucose 77 POC Glucose 76 72 12/15/23 12/15/23 11:15 13:45 Glucose POC Glucose 90 125 H OUTPATIENT ANTIDIABETIC REGIMEN: * empagliflozin 25mg PO daily * Novolog 7-8 units SQ TID * Basaglar 24-26 units SQ HS * metformin 1gm PO BIDM * semaglutide 2mg SQ weekly HbA1C: 6.2% (12/14/23) ASSESSMENT: 12/14 * Fasting 76 mg/dL this morning with 10 units of insulin last PM, patient remains NPO for OR today, D5NS @80 mls/hr started- 125 mg/dL post-op * Change upper goal range to 160 mg/dL while NPO, anticipate diet ordered later today, however, uncertain of intake * Lantus will be scaled for today given below goal fasting this morning with 10 units 12/13 * Pt is a 53 year old male with a history of DM2 admitted with a diabetic foot infection. On multiple antihyperglycemic agents at home, including insulin. Pharmacy consulted to assist with inpatient glycemic management. BSGs [phone]/dL since admission. Received 15 units of Lantus last night and no bolus insulin since admitted. * Has been NPO- diet ordered this afternoon for lunch. Receiving IV antibiotics. Noted plan for OR tomorrow, 12/14 and NPO @ [place]. * Continue basal/bolus insulin and moderate stress Novolog scale. Reduce basal to 10 units tonight given minimal PO intake and plan for NPO again tonight. PLAN FOR INPATIENT GLYCEMIC CONTROL: * Hold outpatient oral diabetes medications * Basal insulin * Lantus 5-10 units SQ HS per scale * Bolus insulin * NovoLog per scale ACHS or Q6hrs while NPO * Goal Range: Low 110 mg/dL - High 160 mg/dL * Correction Factor: 25 mg/dL/unit * Nutritional / Prandial insulin per carb ratio of 1 unit per 8 grams CHO consumed
[2023-12-15] MEDS: ACETAMINOPHEN 325 MG TAB PO PRN (20:34)
[2023-12-15] MEDS: traMADol HCL 50 MG TABLET PO PRN (20:35)
[2023-12-15] MEDS: LANTUS PER UNIT CHARGE SQ SCH (20:49)
[2023-12-15] MEDS: VANCOMYCIN HCL 1,250 MG in SODIUM CHLORIDE 0.9% 250 ML IV SCH (21:46)
--- NOTE | 2023-12-15 21:58 | Operative Report ---
Post Operative Report Pre & Post Diagnosis Operation Date: 12/15/23 12:00 Pre-Op Diagnosis: diabetic foot infection Post-Op Diagnosis: diabetic foot infection I identified the patient and participated in the time-out.: Yes Procedure Operation Date: 12/15/23 12:00 Actual Procedures p Right Foot Transmetatarsal Amputation(Right) - Dmitry Hartman DPM s Left Foot Wound Debridement(Left) - Dmitry Hartman DPM Surgeon Dmitry Hartman DPM Cyber Forensic Specialist None Estimated Blood Loss 5 Findings Consistent with Post-Op Diagnosis Left hallux ulcer did not extend to bone; no bone involvement suspected. No proximal tracking. Slight purulence locally. Right second metatarsal head immediately palpable, soft, necrotic. Activities Concierge bone sent for culture. Remainder of TMA sent for pathology, though separate proximal margin sent as well. Clinically clean margins obtained surgically, primary closure performed with no obvious infected tissue left behind. Specimens Right forefoot sent for gross pathology; second metatarsal proximal margin obtained; right foot second metatarsal bone culture; left hallux soft tissue culture, post-debridement Anesthesia Type MAC Complications none Disposition Accompanied Patient To Recovery: Yes Disposition: Recovery Room Indications Mr. Stephens is a recent hospital consult of ours who presented to the ED with worsening bilateral diabetic foot infections. He states that he has had multiple infections and right digital amputations because of his diabetes in the past. Now, has had longstanding continued ulcers to the right forefoot and left great toe that he admits he neglected. He had developed increasing systemic signs of infection, so sought treatment. We discussed preoperative instructions, postoperative instructions, relative risks, alternatives, and outcomes. Consent was obtained for these procedures preoperatively. All questions were answered. Description of Procedure The patient was brought to the operating room placed on the operating table in the supine position. Following administration of IV sedation, local analgesia was obtained utilizing 20 cc of half percent Marcaine and a forefoot block on the right and 10 cc of half percent Marcaine in a digital block on the left. Bilateral lower extremities were scrubbed, prepped, and draped in the usual as eptic manner. A well-padded pneumatic ankle tourniquet was applied to the patient's right ankle. No tournniquuet was utilized on the left. Attention was directed to the left forefoot where a nonhealing ulcer was noted underlying the left first IPJ. This wound was sharply debrided to the level of the deep fascia, though no extension was noted to the underlying phalanx. There was some superficial purulent drainage noted this was able to be excised and flushed without incident. No further evidence of infection was appreciated to this digit. The ulcer was flushed with copious amounts of sterile saline and dressed with a Betadine wet to dry dressing. Attention was then directed to the right foot where the limb was elevated and exsanguinated and the well-padded pneumatic ankle tourniquet was inflated to 250 mmHg. Attention was directed to the forefoot where the large plantar ulceration was noted underlying the second metatarsal. 2 converging semielliptical incisions were made circumferentially around the forefoot in a fishmouth pattern. The incision was carried down to the level of the bone, along all metatarsals at the surgical neck. Once all soft tissue was released, a sagittal saw was utilized to transect all metatarsals. The soft tissue was further dissected utilizing a 15 blade and thee forefoot was passed off to the back table in one specimen initially. The sagittal saw was then utilized to resect the second metatarsal more proximally and obtain a proximal margin sample for further pathology testing. Activities Concierge samples of the second metatarsal which were clinically infected were sent for bone culture as well. The remainder of the forefoot was labeled to be sent for pathology testing. The forefoot was inspected and all nonviable tissue was able tto be excised leaving no further evidence of clinical infection behind. The incision was flushed with copious amounts of sterile saline and closure was performed utilizing 2-0 nylon in a simple and horizontal interrupted fashion. The incision was dressed with Xeroform gauze, 4 x 4 gauze, Kerlix, and an Justin wrap. The tourniquet was deflated and immediate hyperemia was noted to the digits. The patient tolerated the procedure well and was transferred to the recovery room with vital signs stable and vascular status intact to the feet. Following postoperative monitoring the patient was given prescriptions and instructions were discussed with him prior to surgery. He will then be transferred back to the floor for further assessment and testing prior to likelly discharge over the weekend. I attest to the content of the Intraoperative Record and any orders documented therein. Any exceptions are noted below.
[2023-12-16] MEDS: guaiFENesin SUGAR FREE 200 MG/10 ML UDC PO PRN (01:18)
[2023-12-16 06:31] LABS: Basophils # (auto) 0.14 K/uL (0.00-0.20); Basophils % (auto) 1.1 %; Eosinophils # (auto) 0.31 K/uL (0.00-0.50); Eosinophils % (auto) 2.4 %; Hematocrit (blood only) 36.8 % (42.0-52.0); Hemoglobin 12.3 g/dl (14.0-18.0); Immature Granulocytes # (auto) 0.56 K/uL (0.01-0.20); Immature Granulocytes % (auto) 4.3 %; Lymphocytes # (auto) 1.41 K/uL (1.20-3.40); Lymphocytes % (auto) 10.9 %; Mean Corpuscular Hgb Conc 33.4 g/dL (32.0-36.0); Mean Corpuscular Volume 86.8 fL (80.0-100.0); Mean Platelet Volume 9.3 fL (9.4-12.4); Monocytes # (auto) 1.14 K/uL (0.11-0.59); Monocytes % (auto) 8.8 %; Neutrophils # (auto) 9.42 K/uL (1.40-6.50); Neutrophils % (auto) 72.5 %; Platelet Count 319 K/uL (130-400); RDW Coefficient of Variation 13.2 % (11.5-14.5); Red Blood Count 4.24 M/uL (4.70-6.10); White Blood Count 12.98 K/ul (4.8-10.8)
[2023-12-16 07:10] LABS: Albumin Globulin Ratio 0.4 (0.9-2); Albumin Level 2.1 gm/dl (3.4-5.0); BUN Creatinine Ratio 23.8 (10-20); Bilirubin,Total 0.7 mg/dl (0.2-1.0); Calcium 7.8 mg/dl (8.6-10.3); Creatinine Clr Calc Pharmacy 109.1 ml/min; Est GFR (African American) 114.2 ml/min; Est GFR (Non-African American) 98.6 ml/min; Globulin 4.8 gm/dl (2.5-4.0); Magnesium 1.8 mg/dl (1.7-2.4); Potassium 4.4 mmol/L (3.5-5.1); Total Protein 6.9 gm/dl (6.0-8.3)
--- NOTE | 2023-12-16 08:27 | Hospitalist Progress Note ---
Date of Service December 16, 2023 Assessment & Plan (1) Diabetic foot infection: Plan: Pt is a 53-year-old male with past medical history significant for type 2 diabetes, diabetic peripheral neuropathy, hyperlipidemia, hypothyroidism, right toe amputation, bilateral optic nerve atrophy presenting with concern for infection in the Right Foot and in the Left Great Toe. Sepsis Cellulitis on Left great toe Cellulitis of right foot Chronic Wound Diabetic foot infection Sepsis with tachycardia and leukocytosis, infectious source foot wound Lactate 1.7 Bilateral foot xrays noting Left toe wound and right foot cellulitis vs. osteomyelitis MRI both feet ordered -MRI right foot with osteomyelitis, abscess, tenosynovitis -MRI left foot noting soft tissue ulcer plantar to the first distal phalanx. Possible reactive edema vs. acute osteomyelitis. Right foot Cx NGTD Blood Cx x1 set NGTD Podiatry consulted, appreciate recs -planning for transmetatarsal amputation of the right foot and wound debridement of the left foot on 12/14 Continue Vanco and cefepime ID consult pending Continue to monitor COVID Infection Pt testing positive for covid Appears asymptomatic COVID precautions Closely monitor Hyponatremia Sodium 125 on admission Serum osmolality 281, urine osmolality 749 and urine sodium 32 Gentle IV hydration Avoid overcorrection Nephrology consulted, appreciate recs. Recommended/advised the following: "Continue FFR 1500 ml per day keep glucose less than 200 None of the current meds are likely to cause low Na--can continue all current meds. start NS at 100 ml hr for salt loading but also give lasix 20 mg iv tid for free water diuresis and lower the urine osm. Check urine osm post lasix also Add urea 15 gm bid also. k is fine so likely wont need major kcl supplement but will give low dose of 10 bid and titrate further with daily BMP monitoring" Continue to monitor Hypocalcemia Replete as needed Hyperlipidemia On statin DMII hgba1c of 6.2, well controlled Hold home Jardiance and Ozempic Continue home Lantus and will reduce dose if continue to be n.p.o. Sliding scale Glycemic pharmacy consult Hypertension Holding lisinopril for now in pre-op setting Will monitor Hypothyroidism Continue Synthroid Diet: DMII, NPO after midnight DVT prophylaxis: SCDs pre-op Dispo: will need PT/OT for further recs post-op Admission and Anticipated Discharge Date Admission Date: December 13, 2023 Subjective pt was seen resting comfortably in bed. Notes coughing fit overnight. States better now. pain after surgery improvng Review of Systems Review of Systems: All systems reviewed & are unremarkable except as noted in Subjective Physical Exam Physical Exam: General: Alert, oriented. No acute distress Skin: feet bandaged bilaterally Psych: Appropriate mood and affect Neuro: difficulty with movements in the bed HEENT: NC/AT CV: RRR Resp: Breath sounds clear bilaterally, no increased effort of breathing Abdomen: Soft, nontender Extremities:feet bandaged bilaterally Results & Data Results & Data Vital Signs (Past 12 Hours) Vital Signs Temp Pulse Pulse Resp BP Pulse Ox O2 Del Method 12/16/23 04:23 36.8 C 77 9 L 119/71 96 Nasal Cannula 12/15/23 23:09 36.6 C 82 20 92/54 L 97 Room Air 12/15/23 23:02 86 12/15/23 20:30 Room Air O2 Flow Rate 12/16/23 04:23 1 12/15/23 23:09 12/15/23 23:02 12/15/23 20:30
[2023-12-16] MEDS: VANCOMYCIN LEVEL ONE (08:46)
--- NOTE | 2023-12-16 11:28 | Nephrology Progress Note ---
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 high urine osm and urine na is not low so consitent with SIADH picture Continue FFR 1500 ml per day keep glucose less than 200 None of the current meds are likely to cause low Na--can continue all current meds. will start NS at 100 ml hr for salt loading but also give lasix 20 mg iv tid for free water diuresis and lower the urine osm. Check urine osm post lasix also Add urea 15 gm bid also. k is fine so likely wont need major kcl supplement but will give low dose of 10 bid and titrate further with daily BMP monitoring daily BMP is enough he got some ketorolac--Can make hyponatremia somewhat worse but ok to control pain. (2) Diabetic foot infection: Has long standing h/o this. on Abx currently . monitor drug level closely [place] vancomycin. . S-- Surgery yesterday Right Foot Transmetatarsal Amputation and Left Foot Wound Debridement(Left) . vital signs are fine. eating fine Physical Exam Physical Exam: General- Not in distress ENT- oropharynx clear Neck- supple, no JVD. Lungs- clear to auscultation no wheezing or crackles Heart- regular rhythm; no murmur, no gallop. Abdomen- normal bowel sounds, soft, nontender, no distension Extremities- s/p amputation of right big and small toe. Right foot erythematous and infected callus seen on plantar aspect. Infected callus seen on Left big toe posterior aspect. Neuro- alert, oriented ; PERRL, no facial palsy; no dysarthria; moves extremities. Results & Data Vital Signs (Past 12 Hours) Vital Signs Temp Pulse Resp BP Pulse Ox O2 Del Method O2 Flow Rate 12/16/23 07:00 Room Air 12/16/23 04:23 36.8 C 77 9 L 119/71 96 Nasal Cannula 1
[2023-12-16] MEDS: UREA (UREA-NA) 15 GM PACK PO SCH (12:33)
[2023-12-16] MEDS: FUROSEMIDE INJ 20 MG/2 ML VIAL IV SCH (12:33)
[2023-12-16] MEDS: POTASSIUM CHLORIDE 10 MEQ TABCR PO SCH (12:34)
[2023-12-16] MEDS: SODIUM CHLORIDE 0.9% 1,000 ML IV SCH (12:37)
--- NOTE | 2023-12-16 13:01 | Pharmacy Report ---
Pharmacy PK ABX Note - Date of Service December 16, 2023 - Assessment and Plan Assessment * 53 year old M receiving vancomycin and cefepime for treatment of diabetic foot infection of both feet * Surgical intervention 12/14 * R metatarsal head was necrotic. S/p amputation w clean margins obtained * L hallux ulcer w no bony involvement suspected * Cultures * 12/12 R foot surface wound: Group G Strep and MSSA * 12/14 R foot intra-op: Group G Strep * 12/14 L foot intra-op: Group G Strep and Staph species * ID consulted 12/14 Plan Vancomycin * Maintenance dose: 1250 mg IV every 12 hours * Target AUC/ANA of 400-600 mg/L.hr * Random level of 16.7 mcg/mL this AM associated with a therapeutic AUC at steady state of 538 mg/L.hr * Repeat random level 12/18 with AM labs Pharmacy will continue to follow and will adjust dose/frequency as necessary. Thank you. Pharmacy has transitioned to AUC monitoring for vancomycin. AUC/ANA is the preferred PK/PD target and is associated with decreased risk of nephrotoxicity compared to traditional trough targets.
--- NOTE | 2023-12-16 13:07 | Pharmacy Report ---
Pharmacy Glycemic Sign Off Nt - Date of Service December 16, 2023 - Assessment & Plan ASSESSMENT: * Pharmacy consulted for glycemic management. * Only 5 units of insulin administered yesterday, total, with BSG's ranging from, 72-125 mg/dL. * Basal decreased and bolus loosened slightly today. * BSG's today have been 75-100 mg/dL. * Pharmacy is signing off now - Dr. Lawler aware PLAN FOR INPATIENT GLYCEMIC CONTROL: No changes needed to current regimen. * Continue basal insulin with Lantus 0-5 units SQ HS based on BSG * Continue NovoLog per scale ACHS/Q6hrs while NPO * Goal range = 110 160 mg/dl * CF = 30 mg/dl/unit * CR = 1 unit for ever 10 g CHO consumed * Pharmacy is signing off of glycemic consult and will no longer be making adjustments to inpatient regimen. Please feel free to re-consult if needed. Thank you.
--- NOTE | 2023-12-16 18:28 | XRay Report ---
XR chest 1V portable CLINICAL HISTORY: cough, possible aspiration TECHNIQUE: Single frontal radiograph of the chest was obtained. Comparison: Comparison is made to rib series 12/04/2021 FINDINGS: No lines and tubes are seen. The cardiomediastinal silhouette is normal. The lungs are clear. No evid ence of pleural effusion or pneumothorax. IMPRESSION: No acute abnormalities and in particular no radiographic evidence of pneumonia or aspiration. ACT 112: Negative or not required by law. Electronically signed by: Bennett Horn M.D. 12/16/2023 6:27 PM
[2023-12-17 06:34] LABS: Hematocrit (blood only) 35.6 % (42.0-52.0); Mean Corpuscular Hemoglobin 28.9 pg (25.0-34.0); Mean Corpuscular Hgb Conc 33.7 g/dL (32.0-36.0); Mean Corpuscular Volume 85.8 fL (80.0-100.0); Mean Platelet Volume 9.3 fL (9.4-12.4); Platelet Count 329 K/uL (130-400); RDW Coefficient of Variation 13.2 % (11.5-14.5); RDW Standard Deviation 41.4 fL (36.4-46.3); Red Blood Count 4.15 M/uL (4.70-6.10); White Blood Count 11.08 K/ul (4.8-10.8)
[2023-12-17 06:47] LABS: Albumin Globulin Ratio 0.4 (0.9-2); Albumin Level 2.1 gm/dl (3.4-5.0); BUN Creatinine Ratio 28.7 (10-20); Bilirubin,Total 0.6 mg/dl (0.2-1.0); Calcium 7.5 mg/dl (8.6-10.3); Creatinine Clr Calc Pharmacy 90.8 ml/min; Est GFR (African American) 96.6 ml/min; Est GFR (Non-African American) 83.3 ml/min; Globulin 4.9 gm/dl (2.5-4.0); Magnesium 1.7 mg/dl (1.7-2.4); Phosphorus 3.6 mg/dl (2.5-4.9)
[2023-12-17 06:54] LABS: Basophils # (auto) 0.18 K/uL (0.00-0.20); Basophils % (auto) 1.6 %; Eosinophils # (auto) 0.41 K/uL (0.00-0.50); Eosinophils % (auto) 3.7 %; Immature Granulocytes # (auto) 0.63 K/uL (0.01-0.20); Immature Granulocytes % (auto) 5.7 %; Lymphocytes # (auto) 1.55 K/uL (1.20-3.40); Monocytes # (auto) 1.13 K/uL (0.11-0.59); Monocytes % (auto) 10.2 %; Neutrophils # (auto) 7.18 K/uL (1.40-6.50); Neutrophils % (auto) 64.8 %
--- NOTE | 2023-12-17 12:06 | Hospitalist Progress Note ---
Date of Service December 17, 2023 Assessment & Plan (1) Diabetic foot infection: Plan: Pt is a 53-year-old male with past medical history significant for type 2 diabetes, diabetic peripheral neuropathy, hyperlipidemia, hypothyroidism, right toe amputation, bilateral optic nerve atrophy presenting with concern for infection in the Right Foot and in the Left Great Toe. Sepsis Cellulitis on Left great toe Cellulitis of right foot Chronic Wound Diabetic foot infection Sepsis with tachycardia and leukocytosis, infectious source foot wound Lactate 1.7 Bilateral foot xrays noting Left toe wound and right foot cellulitis vs. osteomyelitis MRI both feet ordered -MRI right foot with osteomyelitis, abscess, tenosynovitis -MRI left foot noting soft tissue ulcer plantar to the first distal phalanx. Possible reactive edema vs. acute osteomyelitis. Right foot Cx grew Group G beta strep only Left foot Cx grew Group G beta strep as well as staph aureus Blood Cx x1 set NGTD Podiatry consulted, appreciate recs -s/p transmetatarsal amputation of the right foot and wound debridement of the left foot on 12/14 Continue Vanco and cefepime ID consult pending for discharge recs PT/OT-orthotics consulted Continue to monitor COVID Infection Pt testing positive for covid Appears asymptomatic COVID precautions Closely monitor Hyponatremia Sodium 125 on admission Serum osmolality 281, urine osmolality 749 and urine sodium 32 Gentle IV hydration Avoid overcorrection Nephrology consulted, appreciate recs. Recommended/advised the following: "Due to syndrome of inappropriate ADH. Sodium 127 today. Will stop IV fluids. Stop Lasix. Increase urea to 30 g twice daily. Encourage high-protein diet. Three Regular meals. Allow patient salt food." Continue to monitor Cough Pt noted coughing fit, possible aspitation Chest XRAY unremarkable currently resolved Hypocalcemia Replete as needed Hyperlipidemia On statin DMII hgba1c of 6.2, well controlled Hold home Jardiance and Ozempic Continue home Lantus and will reduce dose if continue to be n.p.o. Sliding scale Glycemic pharmacy consult Hypertension Holding lisinopril for now in pre-op setting Will monitor Hypothyroidism Continue Synthroid Diet: DMII, NPO after midnight DVT prophylaxis: SCDs pre-op Dispo: PT/OT for further recs post-op Admission and Anticipated Discharge Date Admission Date: December 13, 2023 Subjective Pt was seen laying in bed. Anxious for discharge. Review of Systems Review of Systems: All systems reviewed & are unremarkable except as noted in Subjective Physical Exam Physical Exam: General: Alert, oriented. No acute distress Skin: feet bandaged bilaterally Psych: Appropriate mood and affect Neuro: difficulty with movements in the bed HEENT: NC/AT CV: RRR Resp: Breath sounds clear bilaterally, no increased effort of breathing Abdomen: Soft, nontender Extremities:feet bandaged bilaterally Results & Data Results & Data Vital Signs (Past 12 Hours) Vital Signs Temp Pulse Pulse Resp BP Pulse Ox O2 Del Method 12/17/23 11:02 36.9 C 81 21 113/70 93 Room Air 12/17/23 11:01 78 12/17/23 07:31 37.0 C 81 21 109/64 12/17/23 02:00 36.8 C 85 20 124/77 96 Room Air 12/17/23 00:30 86
--- NOTE | 2023-12-17 13:28 | Nephrology Progress Note ---
Date of Service December 17, 2023 Assessment & Plan (1) Hyponatremia: Plan: Due to syndrome of inappropriate ADH. Sodium 127 today. Will stop IV fluids. Stop Lasix. Increase urea to 30 g twice daily. Encourage high-protein diet. Three Regular meals. Allow patient salt food. Daily BMP is enough. (2) Diabetic foot infection: Plan: Has long standing h/o this. on Abx currently . monitor drug level closely [place] vancomiccin. Admission and Anticipated Discharge Date Admission Date: December 13, 2023 Subjective Seen in follow-up for hyponatremia. No nausea or vomiting. Has bilateral foot wounds. Sodium 127 today. Review of Systems 2 Review of Systems: All other systems were reviewed and negative except as noted in HPI Physical Exam 2 Physical Exam: General exam: Appears comfortable, no acute distress HEENT: Pupils are equal and reactive to light Neck: No JVD, neck is supple trachea is midline Respiratory system: Clear breath sounds bilaterally. Gastrointestinal: Abdomen is soft, non distended, non tender, bowel sounds are present CVS: Regular rate and rhythm. No murmurs, rubs or gallops Musculoskeletal: No joint or muscle tenderness Extremities: Non tender, no edema, peripheral pulses are present. right TMA Neuro: Oriented, no tremors, no focal neurological deficits Skin: No rashes Results & Data Vital Signs (Past 12 Hours) Vital Signs Temp Pulse Pulse Resp BP Pulse Ox O2 Del Method 12/17/23 11:02 36.9 C 81 21 113/70 93 Room Air 12/17/23 11:01 78 12/17/23 07:31 37.0 C 81 21 109/64 12/17/23 02:00 36.8 C 85 20 124/77 96 Room Air Laboratory Results 12/17/23 05:54 12/17/23 05:54 WBC 11.08 H RBC 4.15 L MCV 85.8 MCH 28.9 MCHC 33.7 RDW Std Deviation 41.4 RDW Coeff of Gracie 13.2 Plt Count 329 MPV 9.3 L Phosphorus 3.6 Albumin 2.1 L
[2023-12-17] MEDS: UREA (UREA-NA) 15 GM PACK PO SCH (20:54)
[2023-12-18 07:46] LABS: Hematocrit (blood only) 41.1 % (42.0-52.0); Hemoglobin 13.5 g/dl (14.0-18.0); Mean Corpuscular Hemoglobin 28.9 pg (25.0-34.0); Mean Corpuscular Hgb Conc 32.8 g/dL (32.0-36.0); Mean Platelet Volume 9.6 fL (9.4-12.4); Platelet Count 306 K/uL (130-400); RDW Coefficient of Variation 13.3 % (11.5-14.5); RDW Standard Deviation 42.7 fL (36.4-46.3); Red Blood Count 4.67 M/uL (4.70-6.10)
[2023-12-18 08:07] LABS: BUN Creatinine Ratio 27.4 (10-20); Calcium 7.6 mg/dl (8.6-10.3); Creatinine Clr Calc Pharmacy 109.1 ml/min; Est GFR (African American) 114.2 ml/min; Est GFR (Non-African American) 98.6 ml/min; Magnesium 1.8 mg/dl (1.7-2.4); Potassium 4.3 mmol/L (3.5-5.1)
[2023-12-18 08:09] LABS: Basophils # (auto) 0.06 K/uL (0.00-0.20); Basophils % (auto) 0.6 %; Eosinophils # (auto) 0.28 K/uL (0.00-0.50); Eosinophils % (auto) 2.9 %; Immature Granulocytes # (auto) 0.77 K/uL (0.01-0.20); Immature Granulocytes % (auto) 8.1 %; Lymphocytes # (auto) 1.41 K/uL (1.20-3.40); Lymphocytes % (auto) 14.8 %; Monocytes # (auto) 0.76 K/uL (0.11-0.59); Neutrophils # (auto) 6.22 K/uL (1.40-6.50); Neutrophils % (auto) 65.6 %
--- NOTE | 2023-12-18 10:48 | Hospitalist Progress Note ---
Date of Service December 18, 2023 Assessment & Plan (1) Diabetic foot infection: Plan: Pt is a 53-year-old male with past medical history significant for type 2 diabetes, diabetic peripheral neuropathy, hyperlipidemia, hypothyroidism, right toe amputation, bilateral optic nerve atrophy presenting with concern for infection in the Right Foot and in the Left Great Toe. Sepsis Cellulitis on Left great toe Cellulitis of right foot Chronic Wound Diabetic foot infection Sepsis with tachycardia and leukocytosis, infectious source foot wound Lactate 1.7 Bilateral foot xrays noting Left toe wound and right foot cellulitis vs. osteomyelitis MRI both feet ordered -MRI right foot with osteomyelitis, abscess, tenosynovitis -MRI left foot noting soft tissue ulcer plantar to the first distal phalanx. Possible reactive edema vs. acute osteomyelitis. Right foot Cx grew Group G beta strep only Left foot Cx grew Group G beta strep as well as staph aureus Blood Cx x1 set NGTD Podiatry consulted, appreciate recs -s/p transmetatarsal amputation of the right foot and wound debridement of the left foot on 12/14 Continue Vanco and cefepime ID consult pending for discharge recs PT/OT-orthotics consulted Continue to monitor COVID Infection Pt testing positive for covid Appears asymptomatic COVID precautions Closely monitor Hyponatremia Sodium 125 on admission Serum osmolality 281, urine osmolality 749 and urine sodium 32 Gentle IV hydration Avoid overcorrection Nephrology consulted, appreciate recs. Recommended/advised the following: "Due to syndrome of inappropriate ADH. Sodium 127 today. Will stop IV fluids. Stop Lasix. Increase urea to 30 g twice daily. Encourage high-protein diet. Three Regular meals. Allow patient salt food." Continue to monitor improving Cough Pt noted coughing fit, possible aspitation Chest XRAY unremarkable currently resolved Hypocalcemia Replete as needed Hyperlipidemia On statin DMII hgba1c of 6.2, well controlled Hold home Jardiance and Ozempic Continue home Lantus and will reduce dose if continue to be n.p.o. Sliding scale Glycemic pharmacy consult Hypertension Holding lisinopril for now in pre-op setting Will monitor Hypothyroidism Continue Synthroid Diet: DMII, NPO after midnight DVT prophylaxis: SCDs pre-op Dispo: PT/OT for further recs post-op Admission and Anticipated Discharge Date Admission Date: December 13, 2023 Subjective Pt was seen laying in bed. Anxious for discharge. Review of Systems Review of Systems: All systems reviewed & are unremarkable except as noted in Subjective Physical Exam Physical Exam: General: Alert, oriented. No acute distress Skin: feet bandaged bilaterally Psych: Appropriate mood and affect Neuro: difficulty with movements in the bed HEENT: NC/AT CV: RRR Resp: Breath sounds clear bilaterally, no increased effort of breathing Abdomen: Soft, nontender Extremities:feet bandaged bilaterally Results & Data Results & Data Vital Signs (Past 12 Hours) Vital Signs Temp Pulse Pulse Resp BP Pulse Ox O2 Del Method 12/18/23 07:35 83 12/18/23 07:27 37.0 C 84 18 130/70 97 Room Air 12/18/23 03:08 37.6 C H 84 18 118/64 95 Room Air
--- NOTE | 2023-12-18 11:07 | Nephrology Progress Note ---
Date of Service December 18, 2023 Assessment & Plan (1) Hyponatremia: Plan: Due to syndrome of inappropriate ADH. Sodium 130 today. Continue area urea reduced 15 g twice daily. Encourage high-protein diet. Three Regular meals. Allow patient salt food. Daily BMP is enough. From the standpoint patient can be discharged tomorrow. (2) Diabetic foot infection: Plan: Has long standing h/o this. on Abx currently . monitor drug level closely [place] vancomycin. Admission and Anticipated Discharge Date Admission Date: December 13, 2023 Subjective Seen for hyponatremia. Sodium is improving up to 130 today. No nausea or vomiting. Patient does not like urea, Refused to take this morning Review of Systems 2 Review of Systems: All other systems were reviewed and negative except as noted in HPI Physical Exam 2 Physical Exam: General exam: Appears comfortable, no acute distress HEENT: Pupils are equal and reactive to light Neck: No JVD, neck is supple trachea is midline Respiratory system: Clear breath sounds bilaterally. Gastrointestinal: Abdomen is soft, non distended, non tender, bowel sounds are present CVS: Regular rate and rhythm. No murmurs, rubs or gallops Musculoskeletal: No joint or muscle tenderness Extremities: Non tender, no edema, peripheral pulses are present. right TMA Neuro: Oriented, no tremors, no focal neurological deficits Skin: No rashes Results & Data Vital Signs (Past 12 Hours) Vital Signs Temp Pulse Pulse Resp BP Pulse Ox O2 Del Method 12/18/23 07:35 83 12/18/23 07:27 37.0 C 84 18 130/70 97 Room Air 12/18/23 03:08 37.6 C H 84 18 118/64 95 Room Air Laboratory Results 12/18/23 06:16 12/18/23 06:16 WBC 9.50 RBC 4.67 L MCV 88.0 MCH 28.9 MCHC 32.8 RDW Std Deviation 42.7 RDW Coeff of Gracie 13.3 Plt Count 306 MPV 9.6 Phosphorus 3.0
[2023-12-18] MEDS: UREA (UREA-NA) 15 GM PACK PO SCH (12:42)
[2023-12-19] MEDS ORDERED: UREA (UREA-NA) 15 GM PACK PO SCH
[2023-12-19 06:00] LABS: Hematocrit (blood only) 38.2 % (42.0-52.0); Hemoglobin 12.6 g/dl (14.0-18.0); Mean Corpuscular Hemoglobin 29.1 pg (25.0-34.0); Mean Corpuscular Volume 88.2 fL (80.0-100.0); Platelet Count 277 K/uL (130-400); RDW Coefficient of Variation 13.3 % (11.5-14.5); RDW Standard Deviation 43.3 fL (36.4-46.3); Red Blood Count 4.33 M/uL (4.70-6.10); White Blood Count 11.11 K/ul (4.8-10.8)
[2023-12-19 06:03] LABS: BUN Creatinine Ratio 24.7 (10-20); Calcium 7.7 mg/dl (8.6-10.3); Creatinine Clr Calc Pharmacy 113.1 ml/min; Est GFR (Non-African American) 100.1 ml/min; Magnesium 1.7 mg/dl (1.7-2.4); Phosphorus 2.9 mg/dl (2.5-4.9); Potassium 4.4 mmol/L (3.5-5.1)
[2023-12-19 06:51] LABS: Basophils # (auto) 0.23 K/uL (0.00-0.20); Basophils % (auto) 2.1 %; Eosinophils # (auto) 0.35 K/uL (0.00-0.50); Eosinophils % (auto) 3.2 %; Immature Granulocytes # (auto) 0.89 K/uL (0.01-0.20); Lymphocytes # (auto) 1.86 K/uL (1.20-3.40); Lymphocytes % (auto) 16.7 %; Monocytes # (auto) 0.82 K/uL (0.11-0.59); Monocytes % (auto) 7.4 %; Neutrophils # (auto) 6.96 K/uL (1.40-6.50); Neutrophils % (auto) 62.6 %
[2023-12-19 07:18] VITALS: RESP 16; TEMP 98.1
--- NOTE | 2023-12-19 09:17 | Pharmacy Report ---
Pharmacy PK ABX Note - Date of Service December 19, 2023 - Assessment and Plan Assessment 12/18 * Reviewed vancomycin level. Predicting therapeutic AUC/ANA. Continue current regimen. 12/15 * 53 year old M receiving vancomycin and cefepime for treatment of diabetic foot infection of both feet * Surgical intervention 12/14 * R metatarsal head was necrotic. S/p amputation w clean margins obtained * L hallux ulcer w no bony involvement suspected * Cultures * 12/12 R foot surface wound: Group G Strep and MSSA * 12/14 R foot intra-op: Group G Strep * 12/14 L foot intra-op: Group G Strep and Staph species * ID consulted 12/14 Plan Vancomycin * Maintenance dose: 1250 mg IV every 12 hours * Target AUC/ANA of 400-600 mg/L.hr * Random level of 21.4 mcg/mL this AM associated with a therapeutic AUC at steady state of 545 mg/L.hr * Repeat level if continued or based on clinical status. Pharmacy will continue to follow and will adjust dose/frequency as necessary. Thank you. Pharmacy has transitioned to AUC monitoring for vancomycin. AUC/ANA is the prefe rred PK/PD target and is associated with decreased risk of nephrotoxicity compared to traditional trough targets.
--- NOTE | 2023-12-19 11:16 | Nephrology Progress Note ---
Date of Service December 19, 2023 Assessment & Plan (1) Hyponatremia: Plan: Due to syndrome of inappropriate ADH. Sodium 129 today. Continue area urea reduced 15 g twice daily while inpatient. Encourage high-protein diet. Three Regular meals. Allow patient salt food. From the standpoint patient can be discharged on urea 15 g daily. Patient has agreed to get urea online. either packets or tablets. We should discharge him with 3 packets to cover him until his supply arrives. Repeat a BMP next week and renal follow-up. (2) Diabetic foot infection: Plan: Has long standing h/o this. on Abx currently . monitor drug level closely [place] vancomycin. Admission and Anticipated Discharge Date Admission Date: December 13, 2023 Subjective Seen for hyponatremia. Sodium 129 today. Patient is eager to be discharged home. Review of Systems 2 Review of Systems: All other systems were reviewed and negative except as noted in HPI Physical Exam 2 Physical Exam: General exam: Appears comfortable, no acute distress HEENT: Pupils are equal and reactive to light Neck: No JVD, neck is supple trachea is midline Respiratory system: Clear breath sounds bilaterally. Gastrointestinal: Abdomen is soft, non distended, non tender, bowel sounds are present CVS: Regular rate and rhythm. No murmurs, rubs or gallops Musculoskeletal: No joint or muscle tenderness Extremities: Non tender, no edema, peripheral pulses are present. right TMA Neuro: Oriented, no tremors, no focal neurological deficits Skin: No rashes Results & Data Vital Signs (Past 12 Hours) Vital Signs Temp Pulse Resp BP Pulse Ox O2 Del Method 12/19/23 07:17 36.7 C 77 16 130/78 97 Room Air Laboratory Results 12/19/23 05:35 12/19/23 05:35 WBC 11.11 H RBC 4.33 L MCV 88.2 MCH 29.1 MCHC 33.0 RDW Std Deviation 43.3 RDW Coeff of Gracie 13.3 Plt Count 277 MPV 9.0 L Phosphorus 2.9
--- NOTE | 2023-12-19 14:22 | Discharge Summary ---
Discharge Summary Date of Service December 19, 2023 Principal Dx & Hospital Course #1 = Principal Diagnosis (1) Diabetic foot infection: Pt is a 53-year-old male with past medical history significant for type 2 diabetes, diabetic peripheral neuropathy, hyperlipidemia, hypothyroidism, right toe amputation, bilateral optic nerve atrophy presenting with concern for infection in the Right Foot and in the Left Great Toe. Sepsis Cellulitis left foot Osteomyelitis of right foot Chronic Wound Diabetic foot infection Sepsis with tachycardia and leukocytosis, infectious source foot wound Lactate 1.7 Bilateral foot xrays noting Left toe wound and right foot cellulitis vs. osteomyelitis MRI both feet ordered -MRI right foot with osteomyelitis, abscess, tenosynovitis -MRI left foot noting soft tissue ulcer plantar to the first distal phalanx. Possible reactive edema vs. acute osteomyelitis. Right foot Cx grew Group G beta strep only Left foot Cx grew Group G beta strep as well as staph aureus Blood Cx x1 set NGTD Podiatry consulted, appreciate recs -s/p transmetatarsal amputation of the right foot and wound debridement of the left foot on 12/14 -ordered cam boot for walking on the right foot -a surgical shoe for the left -podiatry follow up after discharge Treated with IV Vancomycin and cefepime ID consulted, Dr James recommended the following: -noted osteomyelitis was involving half the metatarsal -discharge with Keflex 500 mg QID for 6 weeks -schedule ID followup in [place] to assess his foot in another 8 weeks PT/OT recommending discharge home Orthotics consulted by podiatry -ordered cam boot for walking on the right foot -a surgical shoe for the left Please ensure close followup with Podiatry and Infectious Disease after discharge COVID Infection Pt testing positive for covid Asymptomatic COVID precautions Stable on discharge Hyponatremia Sodium 125 on admission Serum osmolality 281, urine osmolality 749 and urine sodium 32 Gentle IV hydration Avoided overcorrection Nephrology consulted, appreciate recs. Recommended/advised the following: "Due to syndrome of inappropriate ADH. Sodium 129 today. Continue area urea reduced 15 g twice daily while inpatient. Encourage high-protein diet. Three Regular meals. Allow patient salt food. From the standpoint patient can be discharged on urea 15 g daily. Patient has agreed to get urea online.either packets or tablets. We should discharge him with 3 packets to cover him until his supply arrives. Repeat a BMP next week and renal follow-up." Pt discharged with 3 packets of urea PCP followup for required labs Please ensure close Nephrology followup after discharge. Cough Pt with noted coughing fit, possible aspiration Chest XRAY unremarkable currently resolved Hypocalcemia Repleted as needed Hyperlipidemia On statin DMII hgba1c of 6.2, well controlled Hold home Jardiance and Ozempic Continue home Lantus and will reduce dose if continue to be n.p.o. Sliding scale Glycemic pharmacy consult Hypertension Held lisinopril in pre-op setting Resume on discharge Hypothyroidism Continue Synthroid Notes For Next Care Provider Please ensure follow up with Podiatry, Nephrology and Infectious Disease. Medication Changes From Visit Per ID: Keflex 500mg QID x 6 weeks Probiotic Admission HPI Per Admitting Provider 53-year-old male with past medical history significant for type 2 diabetes, diabetic peripheral neuropathy, hyperlipidemia, hypothyroidism, right toe amputation, bilateral optic nerve atrophy comes Because of Infection in the Right Foot and Also in the Left Great Toe. Patient Noticed Some Hole in His Right Foot Plantar Aspect and Also Callus in Left Big Toe on the Plantar Aspect. He Is Wiping and Cleaning Them Dry. For Last 2 Days He Is Developing Fevers and Rigors and Not Feeling Well. Poor Appetite. Somewhat Nauseous. Denies Any Pain in the Foot. Able to Ambulate with the Boots on. Regularly Follows with Orthopedics. Denies Any Headache. No Runny Nose or Sore Throat. No Cough. No Chest Pain or Shortness of Breath. No Abdominal Pain. Normal Bowel and Bladder Movements. Resting Comfortably. Past medical history. As mentioned above Past surgical history. Amputation of the right big toe for osteomyelitis, amputation of right little toe. Colonoscopy. Dental surgery. Family family history. Father had high triglycerides. Social history. . No smoking. Alcohol rarely. No drug use. Admission Exam Per Admitting Provider General- Not in distress Head- atraumatic Eyes- PERRL. ENT- oropharynx clear Neck- supple, no JVD. Lungs- clear to auscultation no wheezing or crackles Heart- regular rhythm; no murmur, no gallop. Abdomen- normal bowel sounds, soft, nontender, no distension Extremities- s/p amputation of right big and small toe. Right foot erythematous and infected callus seen on plantar aspect. Infected callus seen on Left big toe posterior aspect. Neuro- alert, oriented ; PERRL, no facial palsy; no dysarthria; moves extremities. Discharge Exam General: Alert, oriented. No acute distress Skin: feet bandaged bilaterally Psych: Appropriate mood and affect Neuro: difficulty with movements in the bed HEENT: NC/AT CV: RRR Resp: Breath sounds clear bilaterally, no increased effort of breathing Abdomen: Soft, nontender Extremities: feet bandaged bilaterally Updated Medication List Medication Instructions Recorded Confirmed Type atorvastatin 20 mg tablet 20 mg PO QAM 10/15/20 12/13/23 History cetirizine 10 mg tablet (Zyrtec) 10 mg PO HS PRN Allergy Symptoms 08/03/21 12/13/23 History diphenhydramine HCl 25 mg capsule 25 mg PO DAILY PRN Allergy Symptoms 08/03/21 12/13/23 History (Benadryl) blood sugar diagnostic (RippldTouch #100 ea 06/20/22 09/13/23 Rx Ultra Test strips) lancets 33 gauge ([employer] Delica #100 ea 06/20/22 09/13/23 Rx Lancets) blood-glucose meter,continuous #1 ea 09/21/22 09/13/23 Rx (Dexcom G7 Monorail Helper) aspirin 81 mg chewable tablet 81 mg PO DAILY 01/28/23 12/13/23 History metformin 500 mg tablet,extended 1,000 mg (2 x 500 mg) PO BIDM #360 02/25/23 12/13/23 Rx release 24 hr tabs pen needle, diabetic 32 gauge x #400 ea 03/08/23 09/13/23 Rx 5/32" (Pen Needle) lisinopril 2.5 mg tablet 2.5 mg PO DAILY #90 tabs 04/25/23 12/13/23 Rx empagliflozin 25 mg tablet 25 mg PO DAILY #30 tabs 07/20/23 12/13/23 Rx (Jardiance) Dexcom G7 Sensor (blood-glucose #3 ea 09/08/23 09/13/23 Rx sensor) semaglutide 1 mg/dose (4 mg/3 mL) 1 mg (0.75 mL) subcut ONCE #3 mL 09/13/23 Rx subcutaneous pen injector (Ozempic) insulin aspart U-100 100 unit/mL 7 - 8 unit subcut TID 12/13/23 12/13/23 History (3 mL) subcutaneous pen (Novolog FlexPen U-100 Insulin aspart) insulin glargine 100 unit/mL (3 24 - 26 unit subcut HS 12/13/23 12/13/23 History mL) subcutaneous pen (Basaglar KwikPen U-100 Insulin) levothyroxine 88 mcg tablet 88 mcg PO DAILYBB 12/13/23 12/13/23 History Saccharomyces boulardii 250 mg 250 mg PO DAILY #42 caps 12/19/23 Rx capsule (Daily Probiotic (S. boulardii)) cephalexin 500 mg capsule 500 mg PO QID #168 caps 12/19/23 Rx Hospital Stay Data Consultations 12/13/23 19:36 ED Decision to Admit Stat 12/14/23 08:00 Consult Nephrology Routine 12/14/23 10:29 Consult Podiatry Routine 12/15/23 14:06 Consult Infectious Diseases Routine Procedures Performed Operation Date: 12/15/23 12:00 Actual Procedures p Right Foot Transmetatarsal Amputation(Right) - Dmitry Hartman DPM s Left Foot Wound Debridement(Left) - Dmitry Hartman DPM Diagnostic Imagining Performed 12/14/23 10:30 MRI Foot [MR foot LT wo/w con] Urgent MRI Foot [MR foot RT wo/w con] Urgent Foot X-Ray 12/13/23 18:25 XR foot LT min 3V routine CLINICAL HISTORY: Left great toe wound. COMPARISON: None FINDINGS: Lateral view demonstrates a soft tissue defect consistent with wound overlying the plantar aspect of the interphalangeal joint of the left great toe. There is no bony erosion within the left foot to suggest acute osteomyelitis. Moderate vascular calcification is present. There are no acute fractures. IMPRESSION: Left first toe wound. No radiographic evidence for acute osteomyelitis. ACT 112: Negative or not required by law. Electronically signed by: Dale Galarza M.D. 12/14/2023 7:10 AM Foot X-Ray 12/13/23 18:25 XR foot RT min 3V routine CLINICAL HISTORY: R distal foot wound TECHNIQUE: 3 views of the right foot were obtained. Comparison: Comparison is made to foot radiographs 02/18/2021 FINDINGS: Postsurgical changes of first digit amputation is seen. There is questionable erosion of the second digit metatarsal head. Degenerative changes are seen. Subcutaneous emphysema and soft tissue swelling are seen. IMPRESSION: Soft tissue swelling subcutaneous emphysema with possible erosion in the second metatarsal head. MRI is a more sensitive modality given lack of recent comparisons. ACT 112: Negative or not required by law. Electronically signed by: Bennett Horn M.D. 12/14/2023 7:35 AM Foot MRI 12/14/23 10:30 Exam(s): MRI LEFT FOOT W/WO Contrast IV Amt: 9cc gadavist EXAM: MR Left Lower Extremity Without and With Intravenous Contrast, Foot CLINICAL HISTORY: Reason for exam: r/o osteomeylitus. TECHNIQUE: Multiplanar magnetic resonance images of the left foot without and with intravenous contrast. CONTRAST: Patient received 9cc gadavist of IV contrast COMPARISON: Left foot radiographs 12/13/23 FINDINGS: There is a plantar soft tissue ulcer subjacent to the distal phalanx of the great toe with regional cellulitis. No drainable soft tissue abscess is visible. There is T2 hyperintense bone marrow edema within the first distal phalanx. There is mild non-confluent corresponding T1 signal hypointensity. Bone marrow signal is otherwise within normal limits. There is no fracture or dislocation. There are microangiopathic changes in the intrinsic muscles of the foot. IMPRESSION: 1. Soft tissue ulcer plantar to the first distal phalanx. 2. Marrow signal changes within the first distal phalanx favoring reactive edema over acute osteomyelitis. Clinical correlation and imaging follow-up advised. Electronically signed by: Rodriguez Luong M.D. 12/14/23 20:16 PM Foot MRI 12/14/23 10:30 Exam(s): MRI RIGHT FOOT W/WO Contrast IV Amt: 9cc gadavist EXAM: MR Right Lower Extremity Without and With Intravenous Contrast, Foot CLINICAL HISTORY: Reason for exam: r/o osteomyelitis. TECHNIQUE: Multiplanar magnetic resonance images of the right foot without and with intravenous contrast. CONTRAST: Patient received 9cc gadavist of IV contrast COMPARISON: Right foot radiographs 12/13/23 FINDINGS: Patient is status post resection of toes 1, 2, and 5. There is a soft tissue ulcer plantar to the first metatarsal head which appears chronic in nature, without surrounding soft tissue edema. First metatarsal head appears to have been partially resected. There is mild reactive edema within the transected margin of the first metatarsal bone without evidence of acute osteomyelitis. There is soft tissue ulceration distal to the second metatarsal head with gas-containing and fluid-containing sinus tract extending to bone. Surrounding soft tissue edema and enhancement is consistent with cellulitis. No drainable soft tissue abscess is visualized in this location. There is T2 hyperintense, T1 hypointense bone marrow signal abnormality within the distal 50% of the second metatarsal bone consistent with acute osteomyelitis. No other foci of osteomyelitis are visualized. There is a rim-enhancing 2.8 x 2.1 x 1.0 cm fluid collection dorsal to the second/third tarsometatarsal joints (series 28, image 24; series 5, image 16), concerning for soft tissue abscess. There is tenosynovitis of the extensor digitorum longus tendon. There are microangiopathic changes within the intrinsic muscles of the foot. There are polyarticular midfoot degenerative changes with mild polyostotic marrow edema within the tarsal bones, likely on a degenerative basis. There is no evidence of acute fracture or dislocation. IMPRESSION: 1. Soft tissue ulcer distal to the second metatarsal head with fluid-and- gas-filled sinus tract extending to bone. 2. Acute osteomyelitis involving the distal 50% of the second metatarsal bone. 3. Soft tissue abscess dorsal to the third tarsometatarsal joint measuring 2.8 x 2.1 x 1.0 cm. 4. Tenosynovitis of the extensor digitorum longus tendon. Electronically signed by: Rodriguez Luong M.D. 12/14/23 20:11 PM Chest X-Ray 12/16/23 17:18 XR chest 1V portable CLINICAL HISTORY: cough, possible aspiration TECHNIQUE: Single frontal radiograph of the chest was obtained. Comparison: Comparison is made to rib series 12/04/2021 FINDINGS: No lines and tubes are seen. The cardiomediastinal silhouette is normal. The lungs are clear. No evidence of pleural effusion or pneumothorax. IMPRESSION: No acute abnormalities and in particular no radiographic evidence of pneumonia or aspiration. ACT 112: Negative or not required by law. Electronically signed by: Bennett Horn M.D. 12/16/2023 6:27 PM Discharge Instructions Given to Patient (Per Discharging Provider) Johnny Crawford were admitted with severe infections in both of your feet. Your right foot had a partial amputation and your left foot had surgical debridement. We treated you with IV antibiotics and the Infectious Disease provider is recommending discharge home with the oral antibiotic Keflex 500mg four times a day for SIX WEEKS. We are also discharging you home with a probiotic to take during that time as well. You were provided with orthotics for use- a right CAM boot and a left post-op shoe. Please use as advised. Your sodium levels were also on the lower end. You were seen by nephrology who recommends use of urea. Please take it as prescribed. Please keep close follow up with your primary care provider after discharge as well as Nephrology, Infectious Disease and Podiatry. Please do not hesitate to come back to the emergency room if your symptoms worsen or return. It was a pleasure taking care of you while you were here. Total Time Total Time Spent Total Time Spent (In Minutes): 75
[2023-12-19 15:28] VITALS: BP 106/69; PULSE 73; O2SAT 98
--- NOTE | 2023-12-20 14:19 | Communication Note ---
Date of Service: December 20, 2023 Mr. Stephens is a 53-year-old man with history of type 2 diabetes and diabetic peripheral neuropathy, hyperlipidemia, hypothyroidism and history of chronic d iabetic foot ulcers of the right foot and left foot who was admitted to [facility] for infected right foot and left big toe. MRI of the left foot on presentation (12/13) showed an ulcer at the plantar aspect of the first distal phalanx with marrow signal changes indicating possible early acute osteomyelitis. As for the MRI right foot, which showed soft tissue ulcer distal to the second metatarsal head with a fluid and gas-filled sinus tract reaching the bone. It further demonstrated acute osteomyelitis involving around half of the second metatarsal bone. There was also soft tissue abscess dorsal to the third tarsometatarsal joint. He was eventually taken for an incision and drainage of the left foot wound as well as a right foot transmetatarsal amputation on 12/15/2023. Intraoperative cultures from both debridement grew MSSA and group G beta strep. ID team was consulted for further recommendations and to help guide antibiotic treatment. Impression: 1. Right foot abscess and osteomyelitis 2. Infected left foot diabetic ulcer with presumed osteomyelitis of big toe 3. Status post I&D of the left diabetic foot ulcer and transmetatarsal amputation of the right foot on 12/14 4. MSSA and group G beta strep infection 5. History of type 2 diabetes with diabetic peripheral neuropathy Recommendations: Given the concern for left big toe osteomyelitis as well as possible residual osteomyelitis in the right foot, I would recommend treating with oral Keflex 500 mg 4 times daily for a total duration of 6 weeks from the day of debridement. Thus, the anticipated end date will be January 26, 2024. Please set an appointment for the patient with us in the [facility] for further management. Thank you for involving us in the care of Mr. Stephens. We will sign off for now.
== END 2023-12-19 16:35 | disposition home or self-care (01) | DRG 853 ==
LOC: ED 18:03 → 2E 20:23 → 3E 12-18 14:51